=== PATIENT | female | born 1950 | race Caucasian/White ===

== ENCOUNTER 2018-02-11 08:47 | Inpatient (IN) | payer MEDICARE, BC ==
[2018-02-11] MEDS ORDERED: Nitroglycerin TAB 0.4 MG* 0.4 MG TAB SL ONE ×2 (09:12→09:49)
[2018-02-11 09:49] LABS: ABS Basophils 0 10^3/ul (0-0.2); ABS Eosinophils 0.2 10^3/ul (0-0.6); ABS Lymphocytes 1.8 10^3/ul (1.0-4.8); ABS Monocytes 0.4 10^3/ul (0-0.8); ABS Nucleated RBC 0 10^3/ul; Hematocrit 42 % (35-47); Hemoglobin 14.1 g/dl (12.0-16.0); Lymphocyte % 33.2 % (25-47); Mean Corpuscular HGB Conc 34 g/dl (31-36); Mean Corpuscular Hemoglobin 29 pg (27-31); Mean Corpuscular Volume 87 fL (80-97); Mean Platelet Volume 7.7 um3 (7.4-10.4); Nucleated Red Blood Cells % 0; Platelet Count 204 10^3/ul (150-450); Red Blood Count 4.81 10^6/ul (4.0-5.4); Red Cell Distribution Width 14 % (10.5-15); White Blood Count 5.5 10^3/ul (3.5-10.8)
[2018-02-11 10:12] LABS: EGFR Non-African American 74.1 (>60)
--- NOTE | 2018-02-11 10:36 | RAD ---
INDICATION: Shortness of breath. COMPARISON: None TECHNIQUE: PA and lateral views of the chest were obtained. FINDINGS: The heart and mediastinum are normal in size and contour. The lungs are grossly clear. There is no evidence of large pleural effusion. Visualized bones are normal for the patient's age. There is no radiographic evidence of free air beneath the diaphragm IMPRESSION: No radiographic evidence of acute cardiopulmonary disease.
[2018-02-11] MEDS ORDERED: Magnesium Oxide TAB* 400 MG PO ONE (12:09)
[2018-02-11] MEDS ORDERED: Nitroglycerin TAB 0.4 MG* 0.4 MG TAB SL PRN (12:27)
[2018-02-11] MEDS ORDERED: Heparin DRIP 25,000 UNITS(*) 25,000 UNITS/500 ML BAG IV SCH (13:30)
[2018-02-11] MEDS ORDERED: Metoprolol Tartrate IV* 1 MG/ML 5 ML VIAL IV ONE (13:31)
[2018-02-11] MEDS ORDERED: Acetaminophen TAB* 325 MG PO PRN (13:35)
[2018-02-11] MEDS ORDERED: Ondansetron INJ* 2 MG/ML VIAL IV PRN (13:35)
[2018-02-11] MEDS ORDERED: Cetirizine* 10 MG TAB PO PRN (13:36)
[2018-02-11] MEDS ORDERED: HYDROcodone/ACETAMIN 5-325 MG* 1 TAB PO PRN (13:36)
[2018-02-11] MEDS: Atorvastatin* 40 MG TAB PO SCH ×2 (14:40→15:06)
[2018-02-11] MEDS: Heparin VIAL(*) 5000 UNITS/ML VIAL (FIVE THOUSAND) IV SCH (14:51)
--- NOTE | 2018-02-11 16:02 | ECHO ---
Patient: SHADI CHO [facility] Rec#: [id number] : 1950 Date: 02/11/2018 Age: 67y Height: 162.56 cm / 64.0 in Weight: 86.18 kg / 189.9 lbs Sex: F BSA: 1.91 Room#: -9 Admit Date#: 02/11/2018 Type: Inpatient Referring: Riky Magaña Reading: Turner Garcia MD Vp [employer] And Crm: Ramandeep Rosales RDCS CC: Pk Schmid MD Transthoracic Echocardiogram Indication: Chest Pain BP: 178/99 HR: 78 Rhythm: NSR Findings History: Former smoker. Technical Comments: The study quality is fair. The study is technically limited due to poor parasternal windows. Completed at 1430. Left Ventricle: The left ventricular chamber size is normal. There is no left ventricular hypertrophy. There is normal left ventricular systolic function. The estimated ejection fraction is 55-60%. There is paradoxical septal wall motion and relative hypokinesis of the proximal lateral wall. Abnormal left ventricular diastolic function is observed. Abnormal left ventricular diastolic filling is observed, consistent with impaired relaxation. Left Atrium: The left atrium is mildly dilated. Right Ventricle: Moderator Band present. The right ventricular cavity size is normal. The right ventricle wall thickness is mildly increased. The right ventricular global systolic function is normal. Right Atrium: The right atrial cavity size is normal. There is evidence of an atrial septal aneurysm. Aortic Valve: The aortic valve is trileaflet. There is no evidence of aortic valve thickening. There is no evidence of aortic regurgitation. There is no evidence of aortic stenosis. Mitral Valve: The mitral valve leaflets are mildly thickened. There is trace to mild mitral regurgitation. There is no evidence of mitral stenosis. Tricuspid Valve: The tricuspid valve leaflets are normal. There is a physiologic tricuspid regurgitation. Unable to estimate the right ventricular systolic pressure. There is no tricuspid stenosis. Pulmonic Valve: The pulmonic valve appears normal. There is a trace pulmonic regurgitation. There is no pulmonic stenosis. Pericardium: There is no significant pericardial effusion. A pericardial fat pad is visualized. Aorta: There is mild dilatation of the ascending aorta. There is no dilatation of the aortic arch. The aortic root is normal in size. Pulmonary Artery: The main pulmonary artery appears normal. Venous: The inferior vena cava appears normal in size. There is a greater than 50% respiratory change in the inferior vena cava dimension. Summary: There was not any prior study for comparison. Conclusions The left ventricular chamber size is normal. The estimated ejection fraction is 55-60%. The estimated ejection fraction is 55-60%. There is paradoxical septal wall motion and relative hypokinesis of the proximal lateral wall Abnormal left ventricular diastolic function is observed. Abnormal left ventricular diastolic filling is observed, consistent with impaired relaxation. The left atrium is mildly dilated. There is trace to mild mitral regurgitation. There is a physiologic tricuspid regurgitation. There is mild dilatation of the ascending aorta. Measurements Name Value Normal Range RVIDd (AP) 2D 2.5 cm (0.9 - 2.6) RVDdMajor (2D) 3.3 cm (2.2 - 4.4) RVAW (2D) 0.7 cm (0.2 - 0.5) RAd ISD 4CH 4.7 cm (3.4 - 4.9) RA (A4C)W 4 cm (2.9 - 4.6) IVSd (2D) 1 cm (0.6 - 1) LVPWd (2D) 0.9 cm (0.6 - 1) LVIDd (2D) 4.9 cm (3.6 - 5.4) LVIDs (2D) 3 cm - LV FS (2D) 39 % (25 - 45) Aortic Annulus 2.4 cm (1.4 - 2.6) Ao root diameter (2D) 3.3 cm (2.1 - 3.5) Ascending Ao 3.7 cm (2.1 - 3.4) Aortic arch 3 cm (1.8 - 3.4) LA dimension (AP) 2D 3.4 cm (2.3 - 3.8) LAd ISD 4CH 4.9 cm (2.9 - 5.3) LA ISD 4CH W 3.9 cm (2.5 - 4.5) Name Value Normal Range LA ESV SP 4CH (A/L) 41 ml - LA ESV SP 2CH (A/L) 85 ml - LA ESV BP (A/L) 64 ml - LA ESV BP (A/L) index 34 ml/m2 - LA ESV SP 4CH (MOD) 38 ml - LA ESV SP 2CH (MOD) 80 ml - Name Value Normal Range MV E-wave Vmax 0.6 m/sec - MV deceleration time 284.21 msec - MV A-wave Vmax 1.21 m/sec - MV E:A ratio 0.5 ratio - LV septal e' Vmax 0.05 m/sec - LV lateral e' Vmax 0.05 m/sec - LV E:e' septal ratio 12 ratio - LV E:e' lateral ratio 12 ratio - Name Value Normal Range AV Vmax 1 m/sec - AV VTI 20.5 cm - AV peak gradient 4.02 mmHg - AV mean gradient 2.18 mmHg - LVOT Vmax 0.8 m/sec - LVOT VTI 16.2 cm - LVOT peak gradient 2.61 mmHg - LVOT mean gradient 1.43 mmHg - AI Vmax 0.55 m/sec - Name Value Normal Range IVC diameter 1.5 cm - Name Value Normal Range PV Vmax 0.83 m/sec - PV peak gradient 2.77 mmHg -
[2018-02-11] MEDS ORDERED: Metoprolol Tartrate IV* 1 MG/ML 5 ML VIAL IV PRN (16:34)
[2018-02-11] MEDS: Nitroglycerin 2% OINT* 1 GM PAK TOPICAL SCH ×2 (18:31→21:51)
[2018-02-11] MEDS ORDERED: diPHENhydraMINE PO* 25 MG PO ONE (19:53)
[2018-02-11] MEDS ORDERED: Diazepam TAB(*) 5 MG PO ONE (19:53)
[2018-02-11] MEDS: Ascorbic Acid TAB* 500 MG PO SCH (20:42)
[2018-02-11] MEDS: Metoprolol Tartrate TAB* 25 MG PO SCH (20:42)
[2018-02-11] MEDS: Morphine TAB Extended Release (*) 30 MG TAB.ER PO SCH (20:42)
--- NOTE | 2018-02-11 21:25 | HP ---
CC: Dr. Schmid * ADMISSION HISTORY AND PHYSICAL: DATE OF ADMISSION: 02/11/18 PRIMARY CARE PROVIDER: Dr. Schmid. MY ATTENDING WHILE IN THE HOSPITAL: Dr. Garry Carrion.* (DICTATED BY JACQUELIN SORIA) CHIEF COMPLAINT: Chest pressure and left arm pain since this morning. HISTORY OF PRESENT ILLNESS: Ms. Tsai is a 67-year-old female with a past medical history significant only for rheumatoid arthritis, who presents to the emergency department by ambulance after this morning she felt a chest pressure with pain radiating down the back of her left arm, numbness, and tingling in her hand with shortness of breath and diaphoresis. The patient states this started soon after she woke up around 8 this morning and that she immediately called EMS and in the hospital was given aspirin, nitroglycerin, started on oxygen and her pain decreased, but did not go away. The patient arrived at the emergency department, was given more nitroglycerin and her pain resolved completely. The patient has never had any episodes like this before. The patient has no history of hypertension, hyperlipidemia, diabetes. The patient has routine monitoring of her inflammatory markers with her rheumatoid arthritis. The patient has no recent illnesses. No recent changes in medication or recent changes in diet, weight gain, weight loss, swelling in her legs, decrease in exercise tolerance, shortness of breath, dyspnea on exertion, easy bruising, or other changes in her health status. The patient's initial troponin was 0.01 and then increased to 0.16. The patient while in the emergency department had another episode of chest pain. She rated it 10/10, in similar quality to before, which again resolved with nitroglycerin. The patient is chest pain-free when she was examined. Due to NSTEMI, we were asked to evaluate for admission. PAST MEDICAL HISTORY: 1. Rheumatoid arthritis. 2. Hypothyroidism. 3. Chronic pain. PAST SURGICAL HISTORY: None. HOME MEDICATIONS: 1. Vitamin B 1 tab p.o. q.p.m. 2. Vitamin D 2000 units p.o. b.i.d. 3. Calcium carbonate 1000 mg p.o. q.p.m. 4. Ascorbic acid 500 mg p.o. b.i.d. 5. Acyclovir 400 mg p.o. t.i.d. as needed. 6. Loratadine 10 mg p.o. daily. 7. Vicodin 5/325 one to two tabs p.o. q.6 hours as needed. 8. Desipramine 150 mg p.o. daily. 9. Aspirin 81 mg p.o. daily. 10. Morphine 60 mg p.o. q.12 hours. 11. Meloxicam 15 mg p.o. daily. 12. Levothyroxine 12.5 mcg p.o. daily. 13. Leflunomide 20 mg p.o. daily. 14. Simponi 50 mg subcutaneously monthly. 15. Bupropion XL 225 mg p.o. daily. ALLERGIES: The patient has allergies to CEFACLOR, CIPROFLOXACIN, ERYTHROMYCIN, GOLD, PLAQUENIL, METHOTREXATE, OMEPRAZOLE, PENICILLIN, POLYETHYLENE GLYCOL, SULFAMETHOXAZOLE, TETRACYCLINE, TRIMETHOPRIM, and MEAT PRESERVATIVES. FAMILY HISTORY: The patient's mother of CHF secondary to rheumatic fever as a child with significant valvular abnormalities, no known VT. The patient's father of emphysema; he was a long-term smoker. The patient has a sister with breast cancer and diabetes, and 4 other siblings all of whom had type 1 diabetes. SOCIAL HISTORY: The patient was a former smoker, off and on for her adult life , quitting 7 years ago. The patient drinks alcohol rarely. No illicit drugs. 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 The patient is and has only 1 child, who is in good health, whose name is Lou Ford and is her healthcare proxy. REVIEW OF SYSTEMS: A 14-point review of systems was reviewed and is negative except as above. PHYSICAL EXAMINATION GENERAL: The patient is a 67-year-old female, who appears stated age and sitting comfortably in the bed, in no acute distress. VITAL SIGNS: On examination, temperature 97.7, pulse rate 87, respiratory rate 16, oxygen saturation 99% on 2 L, blood pressure 166/104. HEENT: Head: Normocephalic, atraumatic. Sclerae anicteric. No conjunctival injection. Nasal mucosa is moist. Oral mucosa moist. No pharyngeal erythema, discharge, or exudates. NECK: Supple, nontender. No lymphadenopathy. No JVD. No carotid bruits auscultated. RESPIRATORY: Clear to auscultation bilaterally. No wheezes, rales, or rhonchi. Good air exchange bilaterally. CARDIAC: Regular rate and rhythm. No clicks, murmurs, gallops, or rubs. Pulses 2+ in the bilateral dorsalis pedis, posterior tibial, and radial areas. No calf tenderness bilaterally. No S3, S4. PMI nondisplaced. ABDOMEN: Soft, nontender, nondistended. Bowel sounds present and normoactive in all 4 quadrants. No hepatosplenomegaly. No abdominal bruits auscultated. GENITOURINARY: No suprapubic or CVA tenderness. NEURO: Cranial nerves II through XII intact. No focal deficits. Normal gait. Alert and oriented x3. No abnormalities. PSYCHIATRIC: Pleasant and cooperative. SKIN: Clean, dry, and intact. No rash. No subcutaneous nodules. No erythema over any visible joints. DIAGNOSTIC STUDIES/LAB DATA: White blood cell count 5.5, hemoglobin 14.1, hematocrit 42, MCH 29, RDW 14, platelet count 204. D-dimer less than 200. Sodium 139, potassium 4.1, chloride 106, carbon dioxide 27, anion gap 6, BUN 11 , creatinine 0.78, glucose 127, lactic acid 1.6, magnesium 1.8. Bilirubin 0.4, AST 24, ALT 36, alkaline phosphatase 69. Creatine kinase 135, CK-MB 4.8. Troponin I 0.01, repeat 0.16. BNP 24. Protein 6.7. Albumin 3.8, globulin 2.9. TSH 1.45, T4 pending. ESR and CRP pending. Chest x-ray read as no acute cardiopulmonary disease. Initial EKG shows normal sinus rhythm. No ST segment abnormalities. No hypertrophy or enlargement. Normal axis, QTc of 450, rate of 71. Repeat EKG during second episode of chest pain shows no significant changes from previous exam, no new ST-segment abnormalities. Repeat EKG during chest pain-free episode shows again no significant changes. ASSESSMENT AND PLAN: Impression: 1. Ms. Tsai is a 67-year-old female with a past medical history significant only for rheumatoid arthritis, who presents with chest pressure with shortness of breath, diaphoresis, and pain down her left arm consistent with cardiac origin. The patient has an elevated troponin indicating non-ST elevation myocardial infarction. The patient will be admitted to the hospital for medical management, Cardiology consultation, and possible cardiac catheterization. 2. Non-ST elevation myocardial infarction. The patient will be started on heparin drip. The patient received aspirin in the emergency department. The patient is currently chest pain-free. The patient is slightly hypertensive. The patient will receive metoprolol tartrate IV at this time. The patient will be started on Lipitor 40 mg p.o. daily. A lipid panel and a hemoglobin A1c are pending. The patient has no known history of hypertension, hyperlipidemia, or coronary artery disease. The patient has no family history of coronary artery disease, has a strong family history for type 1 diabetes. The patient is a former smoker. The patient's CAMILA risk score is 4. We will wait for Cardiology consultation before starting Plavix due to possibility of needing coronary artery bypass graft. We will repeat troponin in 3 hours and trend to peak. The patient will be monitored on telemetry. The patient has nitroglycerin available for recurrent chest pain. We will attempt to keep the patient's blood pressure under better control using nitrates and beta blockers. 3. Rheumatoid arthritis. We will continue the patient on leflunomide. We will hold the patient's Mobic. We recommend the patient discontinue this permanently. The patient's CRP and ESR are pending to gauge disease activity at this time. 4. Hypothyroidism. Continue levothyroxine. T4 pending. 5. Chronic pain. Continue the patient's long-acting morphine, desipramine, and Vicodin. 6. Hypomagnesemia. The patient received magnesium supplementation while in the emergency department. We will recheck in the morning. The patient's potassium and magnesium should be kept above 2 and 4 for ideal non-ST elevation myocardial infarction management. 7. DVT prophylaxis. The patient will be on heparin drip. The patient is a high risk. 8. FEN. The patient will be n.p.o. except for medications at this time pending possible catheterization. The patient will not receive fluids due to hypertension. 9. Disposition. The patient is admitted inpatient to telemetry. TIME SPENT: Approximately 60 minutes was spent on this admission, 30 of which was spent [id number] with the patient obtaining history and physical and discussing treatment plan. This plan has been discussed with my attending, Dr. Garry Carrion; he is in agreement. JACQUELIN SORIA [id number]/[facility] #: [id number] SYD
--- NOTE | 2018-02-12 00:18 | CONS ---
CC: Dr. Schmid; Hospitalist Service * CARDIOLOGY CONSULTATION REPORT: DATE OF CONSULT: 02/11/18 HISTORY OF PRESENT ILLNESS: I was asked by hospitalist service to see this 67- year-old female patient who presented to the emergency room via ambulance this morning with chest pain. The patient does have risk factors for coronary artery disease including obesity, her age, systemic arterial hypertension in the emergency room, although she had no history of hypertension or medications for blood pressure before, and family history of coronary artery disease, long use of tobacco consumption, although she quit a few years ago, unknown cholesterol status. She said this morning, she had chest pain and heaviness, which was severe. She had no nausea, no vomiting. She felt going down her left arm. No syncope. She called the ambulance. They gave her sublingual nitroglycerin which helped, but it never took the pain away completely. In the emergency room, she had 2 nitroglycerin sublingual. The third one took the pain away. She had been chest pain free since morning. Her first troponin was 0. Her second troponin about 12:20 this afternoon was 0.16. She was chest pain free at that time. Her EKGs did not show ST elevations, although they showed borderline low voltage and the third one showing borderline ST depressions inferolaterally. She did receive Lopressor 5 mg IV in the emergency room because her systolic blood pressure was 180 and she was started on heparin drip after bolus dose. She was started on Lipitor 40 mg once daily. She had no nausea, no vomiting, no fever, no chills, no acute illness. She gives no history of myocardial infarction or coronary artery disease in the past or congestive heart failure. She gives no history of diabetes mellitus. She said she has 5 siblings; all of them have diabetes with coronary artery disease either with the stenting or coronary artery bypass grafting. She is here for further evaluation. She gives no palpitations, no tachycardia, no swelling in the lower extremities, no hematochezia, no orthopnea, no syncope, no nausea, no vomiting is appreciated. PAST SURGICAL HISTORY: Include history of cyst removed from the bone of the lower back and total abdominal hysterectomy with bilateral salpingo- oophorectomy. Her daughter is with her at the bedside when I interviewed the patient today. MEDICATIONS: Her medications as an outpatient include: 1. Mobic 50 mg daily. 2. Synthroid 125 mcg daily. 3. Morphine. 4. Vicodin. 5. Baby aspirin 81 mg daily. 6. Wellbutrin 225 mg daily. 7. Claritin 10 mg daily. 8. Acyclovir 400 mg as needed. Her medications as an inpatient include: 1. Synthroid 125 mcg daily. 2. Morphine 60 mg p.o. q.12 hours. 3. Nitroglycerin 0.4 mg sublingual for chest pain. 4. Zofran 4 mg IV q.6 hours for nausea. 5. She is also on Tylenol 650 mg p.o. q.6 hours p.r.n. 6. She is on hydrocodone 1 tablet p.o. q.6 hours. 7. Vitamin C 500 mg twice a day. 8. Aspirin 81 mg daily. 9. Lipitor 40 mg daily. 10. Zyrtec 10 mg p.r.n. 11. Heparin IV drip adjusted to her PTT. ALLERGIES: She is allergic to multiple medications including PENICILLIN giving her flush rash; TETRACYCLINE, hives; ERYTHROMYCIN, cramping in the abdomen and rash; CECLOR, rash; CIPRO, hives; PLAQUENIL, hives; GOLD SALTS, skin lesions; METHOTREXATE, PRILOSEC, severe diarrhea; SYSTANE DROPS, inflammation in the eyes. SOCIAL HISTORY: She gives no history of significant alcohol drinking. She did smoke for many years, although she quit a few years ago. She lives by herself. She exercises in the form of walking daily activity. REVIEW OF SYSTEMS: Review of all other systems essentially is negative. PHYSICAL EXAM: She is awake, alert, and oriented. She is chest pain free. She is not in acute distress. Vitals: Blood pressure 188/100 at about 2:30 this afternoon; pulse 70, she is in sinus rhythm; she is afebrile. Head and Neck Exam: Normocephalic, atraumatic head. Ears, Nose, and Throat: Essentially benign. Neck: Supple. JVP is not elevated. No carotid bruit. No masses in the neck are appreciated. Chest: Clear to auscultation. No rales, no wheeze, no added sounds appreciated. Heart: Normal. Regular S1 and S2. No added sounds, no gallops, no rubs. Abdomen: Benign. Positive bowel sounds. Extremities: No edema, no cyanosis, no clubbing. Skin exam is normal. Psych: Normal affect and mood. 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 DIAGNOSTIC STUDIES/LAB DATA: Her EKG is as described. Her white blood cells 5.5, hemoglobin 14.1, hematocrit 42, and platelets 204. D - dimer less than 200. Sodium 139, potassium 4.1, chloride 106, total CO2 27, BUN 11, creatinine 0.78, magnesium 1.8. LFTs normal. Troponin 0.01, that was at 9:30 this morning and then 0.16 at 12:20 afternoon. CRP 2.75. BNP 24. TSH 1.45, T4 pending. Chest x-ray: No active cardiopulmonary disease. IMPRESSION: The patient is a 67-year-old female with: 1. Symptoms of chest pain, abnormal troponin, borderline EKG abnormality consistent with acute coronary syndrome. 2. The patient is currently chest pain free after she received aspirin, sublingual nitroglycerin x3, and metoprolol IV one dose in the emergency room. 3. Obesity. 4. Systemic arterial hypertension. 5. Unknown cholesterol status. 6. Strong family history of coronary artery disease. 7. Long use of tobacco consumption, although she quit. 8. Hypothyroidism. 9. Severe rheumatoid arthritis on osteoarthritis. She is on nonsteroidal antiinflammatory and morphine pain medications. PLAN: Currently, the patient is on the telemetry floor. She needs to be observed very closely for her symptoms of chest pain, EKG abnormalities, as well as follow up troponins as you are already doing. I agree with aspirin, IV heparin. I added beta blockers, metoprolol, and also nitro paste 1 inch. This will help her coronary syndrome as well as her systemic arterial hypertension. I agree with continuing the statin. I understand that an echocardiogram was just completed and we will evaluate this especially for LV function and wall motion abnormality. We will follow EKG and troponin very closely. This patient needs, based on her symptoms, troponin abnormality, EKG abnormality, and comorbidities, cardiac catheterization to evaluate her coronary anatomy. Benefits and risks discussed with the patient. She is willing to proceed. Definitely, any change in her clinical status will be observed and we will take the patient earlier rather than later to the cardiac lab tech. I answered all their concerns and questions up to their satisfaction. Her daughter was at the bedside with her today. TIME SPENT: More than half of at least 60 to 65 plus minutes was in the face-to - face education and counseling mode, explaining all of the above, and making further recommendations. Thank you very much for asking us to participate in the care of this patient. [id number]/[facility] #: [id number] SYD
[2018-02-12] MEDS: Heparin VIAL(*) 5000 UNITS/ML VIAL (FIVE THOUSAND) IV SCH (02:28)
[2018-02-12] MEDS: Nitroglycerin 2% OINT* 1 GM PAK TOPICAL SCH (04:41)
[2018-02-12] MEDS ORDERED: Levothyroxine TAB* 125 MCG TAB PO SCH (06:00)
[2018-02-12] MEDS ORDERED: NS 0.9% 1000 ML* 1,000 ML IV SCH ×2 (06:00)
[2018-02-12] MEDS: Morphine TAB Extended Release (*) 30 MG TAB.ER PO SCH (07:24)
[2018-02-12] MEDS: Ascorbic Acid TAB* 500 MG PO SCH (07:25)
[2018-02-12] MEDS: Metoprolol Tartrate TAB* 25 MG PO SCH (07:40)
[2018-02-12 07:41] LABS: Hematocrit 40 % (35-47); Hemoglobin 13.4 g/dl (12.0-16.0); Mean Corpuscular HGB Conc 34 g/dl (31-36); Mean Corpuscular Hemoglobin 30 pg (27-31); Mean Corpuscular Volume 87 fL (80-97); Mean Platelet Volume 7.9 um3 (7.4-10.4); Platelet Count 181 10^3/ul (150-450); Red Blood Count 4.54 10^6/ul (4.0-5.4); Red Cell Distribution Width 15 % (10.5-15); White Blood Count 9.1 10^3/ul (3.5-10.8)
[2018-02-12 08:36] VITALS: BP 166/84
--- NOTE | 2018-02-12 08:44 | PN ---
Subjective Date of Service: 02/12/18 Interval History: Patient was seen and examined at bedside. Reports feeling tired, did not sleep much last night. Denies any recurrent chest pain, palpitations or SOB. Tolerating clear liquid diet, made NPO this morning in anticipation for planned cardiac catheterization later today. She has no complaints today. Family History: Unchanged from Admission Social History: Unchanged from Admission Past Medical History: Unchanged from Admission Objective Active Medications: Acetaminophen (Tylenol Tab*) 650 mg PO Q6H PRN PRN Reason: FEVER/PAIN Last Admin: 02/12/18 02:32 Dose: 650 mg Hydrocodone Bitart/Acetaminophen ([place] 5-325 Tab*) 1 tab PO Q6H PRN PRN Reason: PAIN Ascorbic Acid (Vitamin C Tab*) 500 mg PO BID [facility] Last Admin: 02/12/18 07:25 Dose: 500 mg Aspirin (Aspirin Ec Tab*) 81 mg PO DAILY [facility] Last Admin: 02/12/18 07:25 Dose: 81 mg Atorvastatin Calcium (Lipitor*) 40 mg PO 1700 [facility] Last Admin: 02/11/18 15:06 Dose: Not Given Cetirizine HCl (Zyrtec*) 10 mg PO DAILY PRN PRN Reason: Allergy Symptoms Desipramine HCl (Norpramin Tab*) 150 mg PO DAILY [facility] Last Admin: 02/12/18 07:24 Dose: 150 mg Heparin Sodium (Porcine) (Heparin Vial(*)) 0 units IV .SEE DRIP PROTOCOL [facility] Last Admin: 02/12/18 02:28 Dose: 4,000 units Heparin Sodium/Dextrose (Heparin Drip 25,000 Units(*)) 25,000 units in 500 mls @ 0 mls/hr IV PER RATE [facility]; Per Protocol PRN Reason: Protocol Last Admin: 02/11/18 14:46 Dose: 16 mls/hr Sodium Chloride (Ns 0.9% 1000 Ml*) 1,000 mls @ 100 mls/hr IV .per rate [facility] Last Admin: 02/12/18 06:09 Dose: 100 mls/hr Levothyroxine Sodium (Synthroid Tab*) 125 mcg PO 0600 [facility] Last Admin: 02/12/18 06:05 Dose: 125 mcg Metoprolol Tartrate (Lopressor Tab*) 25 mg PO BID [facility] Last Admin: 02/12/18 07:40 Dose: 25 mg Metoprolol Tartrate (Lopressor Iv*) 5 mg IV Q6H PRN PRN Reason: SYSTOLIC BP GREATER THAN: Morphine Sulfate (Ms Contin(*)) 60 mg PO Q12HR [facility] Last Admin: 02/12/18 07:24 Dose: 60 mg Nitroglycerin (Nitroglycerin Tab 0.4 Mg*) 0.4 mg SL Q5M PRN PRN Reason: ANGINA Nitroglycerin (Nitroglycerin 2% Oint*) 1 inch TOPICAL Q6H [facility] Last Admin: 02/12/18 04:41 Dose: 1 inch Pto: Leflunomide 20 (Mg) 1 dose PO DAILY [facility] PRN Reason: Protocol Last Admin: 02/12/18 07:25 Dose: 1 dose Ondansetron HCl (Zofran Inj*) 4 mg IV Q6H PRN PRN Reason: NAUSEA Vital Signs - 8 hr 02/12/18 02/12/18 02/12/18 04:09 07:24 07:38 Temperature 98.0 F 98.1 F Pulse Rate 68 63 Respiratory 18 18 18 Rate Blood Pressure 133/76 166/84 (mmHg) O2 Sat by Pulse 99 94 Oximetry 02/12/18 08:00 Temperature Pulse Rate Respiratory 18 Rate Blood Pressure (mmHg) O2 Sat by Pulse Oximetry Oxygen Devices in Use Now: None Appearance: Alert and oriented, in NAD. Eyes: No Scleral Icterus, PERRLA Ears/Nose/Mouth/Throat: Mucous Membranes Moist Neck: NL Appearance and Movements; NL JVP, Trachea Midline Respiratory: Symmetrical Chest Expansion and Respiratory Effort, Clear to Auscultation Cardiovascular: NL Sounds; No Murmurs; No JVD, RRR Abdominal: NL Sounds; No Tenderness; No Distention Lymphatic: No Cervical Adenopathy Extremities: No Edema, No Clubbing, Cyanosis Skin: No Rash or Ulcers Neurological: Alert and Oriented x 3 Result Diagrams: 02/12/18 07:33 02/12/18 07:33 Diagnostic Imaging: Cardiac Catheterization Report Patient: SHADI CHO /Age: 09 1950 67 Medical Record#: [id number] Admission Date: 02/11/18 Provider: Ed Vieyra MD CC: Dr. Pk Schmid; Dr. Garcia; Dr. Chaparro Ash CARDIAC CATHETERIZATION REPORT: DATE OF PROCEDURE: INDICATION FOR THE PROCEDURE: The patient presents with non-ST elevation myocardial infarction, acute coronary syndrome by cardiac enzymes and symptomatology. PROCEDURE: Coronary arteriography, left heart catheterization, left ventriculography. The patient was examined and interviewed in the floor of the hospital where the risks and benefits were explained to the patient and her daughter. They understood them and wished to proceed. OVERALL ASSESSMENT: Significant multi-vessel coronary artery disease, most significantly involving a 75% distal left main with heavy calcium extending into the proximal left anterior descending artery as described. There is a 90% lesion in the proximal to mid circumflex artery as mentioned. There is a significant lesion in an extremely small- caliber distal right coronary artery subtending a small area of myocardium. In general, recommendations for bypass surgery would be most appropriate with preserved left ventricular function and significant distal left main as described. This information was shared with Dr. Garcia, the patient's primary ophthalmic photographer, who will be setting up arrangements for transfer of the patient. [id number]/[facility] #: [id number] Ed Vieyra MD Dictated Date/Time: 02/12/18 1126 Transcribed Date/Time 02/12/18 1221 Copy to: CC: Ed Vieyra MD 2 of 2 EKG Data: EKG INTERPRETATION ECG Report Patient Name SHADI CHO Birthdate 07/26/1955 Sex F Order Number [id number] Date of ECG 02/11/2018 09:16:23 Interpretation Sinus rhythm.normal P axis, V-rate 60- 99 Abnormal R-wave progression, early transition.QRS area>0 in V2 Nonspecific T abnormalities, lateral leads.T <-0.10mV, I aVL V5 V6 Baseline wander in lead(s) V3 - ABNORMAL ECG - ECG NEEDS E-SIGNING Please go to [facility] website to view the EKG image Assess/Plan/Problems-Billing Assessment: A 67 y/o female with sudden onset of chest pain, and cardiac work-up consistent with a non-ST elevation NC; who was found on cardiac catheterization to have a significant coronary disease, promoting her transfer to [facility] for surgical intervention. - Patient Problems (1) Non-STEMI (non-ST elevated myocardial infarction) Current Visit: Yes Status: Acute Comment: - Heparin drip was intiated since admission, continued during her transfer orders - Discussed with DR. Garcia and Dr. Vieyra; EMTALA orders were filled, transfer orders completed. - Patient stable and daughter was present, both agreed to care plans - Morphine and Nitro SL were added as prn orders in route (2) Chest pain Current Visit: Yes Status: Acute Comment: - Significant Multiple Coronary artery disease, mostly noted in distale left coronary - She is pain free upon discharge to [facility] (3) Arthritis, rheumatoid Current Visit: No Comment: Stable (4) DVT prophylaxis Current Visit: Yes Comment: On heparin drip (5) Full code status Current Visit: Yes Status: Acute Code(s): Z78.9 - OTHER SPECIFIED HEALTH STATUS SNOMED Code(s): 823966258 Status and Disposition: Transfer to [facility], to care of Dr. Bentley Ash MD. Likely to proceed with multi-vessel CABG. Patient aware and agreed to plans. Total time spent discharging patient was approx. 40 min.
[2018-02-12] MEDS ORDERED: Aspirin EC TAB* 81 MG TAB.EC PO SCH (09:00)
[2018-02-12] MEDS ORDERED: Desipramine TAB* 50 MG PO SCH (09:00)
[2018-02-12] MEDS ORDERED: LEFLUNOMIDE 20 MG PO SCH (09:00)
[2018-02-12] MEDS ORDERED: Heparin 2 UNITS/ML IVPREMIX* 3,000 ML IV ONE (09:38)
[2018-02-12] MEDS ORDERED: Lidocaine 1% INJ* 10 MG/ML 30 ML SDV ONE (09:38)
[2018-02-12] MEDS ORDERED: Iohexol 350 (CONTRAST) 200 ML MDV IV ONE ×2 (09:39)
[2018-02-12] MEDS ORDERED: Midazolam* 1 MG/ML 10 ML VIAL (10 MG) ONE (09:55)
[2018-02-12] MEDS ORDERED: fentaNYL* 50 MCG/ML 2 ML VIAL (100 MCG VIAL) ONE (09:59)
[2018-02-12] MEDS ORDERED: nitroGLYCERIN DRIP* 25,000 MCG/250 ML BTL ONE (10:18)
--- NOTE | 2018-02-12 11:59 | ED ---
Justyn Garnett Angela, scribed for Sander Love MD on 02/11/18 at 0910 . HPI Chest Pain - HPI Summary HPI Summary: This pt is a 62 y/o female presenting to [facility] c/o chest pain since 08:00 this morning. Pt reports she woke up at 07:30 showered and got dressed. She then began feeling chest heaviness, described as "someone sitting on her chest." Pt additionally states diaphoresis, intermittent dizziness. Her chest pain at onset was 10/10 in severity. Currently her pain is 5/10 after aspirin and nitroglycerin. Denies fever, nausea, vomiting, SOB. Pt takes morphine for chronic arthritis. Pt states she has never had this chest pain before in the past. 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 - History of Current Complaint Hx Obtained From: Patient Onset/Duration: Started Hours Ago, Still Present Timing: Lasting Hours Initial Severity: Severe Current Severity: Moderate Pain Intensity: 5 Pain Scale Used: 0-10 Numeric Chest Pain Location: Diffuse Chest Pain Radiates: No Character: Heaviness Aggravating Factor(s): Nothing Alleviating Factor(s): Nothing Associated Signs and Symptoms: Positive: Chest Pain, Dizziness, Diaphoresis. Negative: Shortness of Breath, Fever, Nausea, Vomiting - Allergy/Home Medications Allergies/Adverse Reactions: Allergies Allergy/AdvReac Type Severity Reaction Status Date / Time cefaclor [From Ceclor] Allergy Palpitation Verified 02/11/18 09:13 s ciprofloxacin [From Cipro] Allergy Hives Verified 02/11/18 09:13 erythromycin base Allergy Rash Verified 02/11/18 09:13 Gold Salts Allergy Rash Verified 02/11/18 09:13 hydroxychloroquine Allergy Hives Verified 02/11/18 09:13 [From Plaquenil] methotrexate Allergy Unknown Verified 02/11/18 09:13 Reaction Details omeprazole [From Prilosec] Allergy Diarrhea Verified 02/11/18 09:13 Penicillins Allergy Rash Verified 02/11/18 09:13 polyethylene glycol 400 Allergy Eyes Verified 02/11/18 09:13 [From Systane (propylene Itchy/Swollen/Red/Watery glycol)] propylene glycol Allergy Eyes Verified 02/11/18 09:13 [From Systane (propylene Itchy/Swollen/Red/Watery glycol)] sulfamethoxazole Allergy Vomiting Verified 02/11/18 09:13 [From ] tetracycline Allergy Hives Verified 02/11/18 09:13 trimethoprim [From ] Allergy Vomiting Verified 02/11/18 09:13 Home Medications: Home Medications Acyclovir* [Zovirax 400 MG TAB*] 400 mg PO TID PRN 02/11/18 [History Confirmed 02/11/18] Ascorbic Acid TAB* [Vitamin C TAB*] 500 mg PO BID 02/11/18 [History Confirmed 02/11/18] Aspirin EC TAB* [Ecotrin EC Low Dose 81 MG*] 81 mg PO DAILY 02/11/18 [History Confirmed 02/11/18] Bupropion XL* [Wellbutrin XL *] 225 mg PO DAILY 02/11/18 [History Confirmed 09/20] Calcium Carbonate [Calcium] 1,000 mg PO QPM 02/11/18 [History Confirmed 02/11/18 ] Cholecalciferol TAB* [Vitamin D TAB*] 2,000 units PO BID 02/11/18 [History Confirmed 02/11/18] Desipramine TAB* [Norpramin TAB*] 150 mg PO DAILY 02/11/18 [History Confirmed ] Golimumab [Simponi] 50 mg SUBCUT MONTHLY 02/11/18 [History Confirmed 02/11/18] Hydrocodone/APAP 5/300 (NF) [Vicodin 5 MG/300 MG(NF)] 1 - 2 tab PO Q6H PRN 02/11 [History Confirmed 02/11/18] Leflunomide (NF) [Arava (NF)] 20 mg PO DAILY 02/11/18 [History Confirmed ] Levothyroxine TAB* [Synthroid TAB*] 125 mcg PO DAILY 02/11/18 [History Confirmed 02/11/18] LoraTADine TAB(NF) [Claritin 10 MG TAB(NF)] 10 mg PO DAILY PRN 02/11/18 [ History Confirmed 02/11/18] Meloxicam(NF) [Mobic(NF)] 15 mg PO DAILY 02/11/18 [History Confirmed 02/11/18] Morphine TAB Extended Rel(*) [Ms Contin(*)] 60 mg PO Q12HR 02/11/18 [History Confirmed 02/11/18] Vitamin B Complex TAB* [B Complex-50*] 1 tab PO QPM 02/11/18 [History Confirmed 02/11/18] PMH/Surg Hx/FS Hx/Imm Hx Endocrine/Hematology History: Reports: Hx Thyroid Disease - hypothyroidism Denies: Hx Diabetes Cardiovascular History: Denies: Hx Hypertension Musculoskeletal History: Reports: Hx Arthritis Psychiatric History: Reports: Hx Depression - Family History Known Family History: Positive: Diabetes - siblings - Social History Alcohol Use: None Substance Use Type: Reports: None Smoking Status (MU): Never Smoked Tobacco Review of Systems Positive: Skin Diaphoresis. Negative: Fever, Chills Positive: Chest Pain Negative: Vomiting, Nausea Neurological: Other - POS: lightheadedness All Other Systems Reviewed And Are Negative: Yes Physical Exam - Summary Physical Exam Summary: VITAL SIGNS: Reviewed. GENERAL: Patient is a well-developed and nourished female who is lying comfortable in the stretcher. Patient is not in any acute respiratory distress. HEAD AND FACE: No signs of trauma. No ecchymosis, hematomas or skull depressions. No sinus tenderness. EYES: PERRLA, EOMI x 2, No injected conjunctiva, no nystagmus. EARS: Hearing grossly intact. Ear canals and tympanic membranes are within normal limits. MOUTH: Oropharynx within normal limits. NECK: Supple, trachea is midline, no adenopathy, no JVD, no carotid bruit, no c- spine tenderness, neck with full ROM. CHEST: Symmetric, no tenderness at palpation LUNGS: Clear to auscultation bilaterally. No wheezing or crackles. CVS: Regular rate and rhythm, S1 and S2 present, no murmurs or gallops appreciated. ABDOMEN: Soft, non-tender. No signs of distention. No rebound no guarding, and no masses palpated. Bowel sounds are normal. EXTREMITIES: FROM in all major joints, no edema, no cyanosis or clubbing. NEURO: Alert and oriented x 3. No acute neurological deficits. Speech is normal and follows commands. SKIN: Dry and warm Triage Information Reviewed: Yes Vital Signs Reviewed: Yes Diagnostics - Laboratory Result Diagrams: 02/11/18 09:32 02/11/18 09:32 Lab Statement: Any lab studies that have been ordered have been reviewed, and results considered in the medical decision making process. - Radiology Chest XR Xray Interpretation: No Acute Changes - IMPRESSION: No radiographic evidence of acute cardiopulmonary disease. Dr. Love has reviewed this radiology report. Radiology Interpretation Completed By: Radiologist - EKG 09:16 Cardiac Rate: NL EKG Rhythm: Sinus Rhythm - at 71 bpm EKG Interpretation: No ST elevations. 09:58 Cardiac Rate: NL EKG Rhythm: Sinus Rhythm - at 96 bpm EKG Interpretation: No ST elevations. No ST depressions. Re-Evaluation - Re-Evaluation First Eval Re-Evaluation Time: 12:06 Comment: I reviewed the lab and XR results with the pt. I discussed the admission plan with the pt. Chest Pain Course/Dx - Course Assessment/Plan: This pt is a 62 y/o female presenting to [facility] c/o chest pain since 08:00 this morning. Pt reports she woke up at 07:30 showered and got dressed. She then began feeling chest heaviness, described as "someone sitting on her chest." Pt additionally states diaphoresis, intermittent dizziness. Her chest pain at onset was 10/10 in severity. Currently her pain is 5/10 after aspirin and nitroglycerin. Denies fever, nausea, vomiting, SOB. Pt takes morphine for chronic arthritis. Pt states she has never had this chest pain before in the past. 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 Test results without any significant abnormalities except for magnesium of 1.8, for which the pt was given magnesium oxide PO, first troponin is negative. Second troponin is 0.16. Chest XR: No radiographic evidence of acute cardiopulmonary disease. EKG shows no ST elevations, however the pt had 3 episodes of chest pain which was alleviated by nitroglycerin. Therefore I discussed the test results and findings with Dr. Carrion, hospitalist, who accepted the pt for admission to rule out acute coronary syndrome. Pt is hemodynamically stable, alert and oriented x3. Dx: chest pain, rule out ACS. - Diagnoses Provider Diagnoses: Chest pain - Provider Notifications Discussed Care Of Patient With: Garry Carrion Time Discussed With Above Provider: 12:07 Instructed by Provider To: Other - I discussed pt care with Dr. Carrion, hospitalist, who has accepted the pt for admission. Discharge - Sign-Out/Discharge Documenting (check all that apply): Discharge - admit to [facility] - Discharge Plan Condition: Stable Disposition: ADMITTED TO [facility] Referrals: No Primary Care Phys,NOPCP [Medical Doctor] - The documentation as recorded by the scribe, Alejandra,Michelle accurately reflects the service I personally performed and the decisions made by me, Sander Love MD.
--- NOTE | 2018-02-12 12:55 | CATH ---
CC: Dr. Pk Schmid; Dr. Garcia; Dr. Chaparro Ash * CARDIAC CATHETERIZATION REPORT: DATE OF PROCEDURE: 02/12/18 INDICATION FOR THE PROCEDURE: The patient presents with non-ST elevation myocardial infarction, acute coronary syndrome by cardiac enzymes and symptomatology. PROCEDURE: Coronary arteriography, left heart catheterization, left ventriculography. The patient was examined and interviewed in the floor of the hospital where the risks and benefits were explained to the patient and her daughter. They understood them and wished to proceed. DESCRIPTION OF PROCEDURE: The patient was brought into the cardiovascular laboratory where a formal time-out was performed. Of note, on the floor, the right radial artery had already been assessed and found to be too small in caliber and as such, the right femoral artery approach was pursued. The right femoral artery area was prepped and draped in the sterile fashion, anesthetized with 1% lidocaine. Right femoral artery was cannulated with an anterior wall only stick and a 5-Kazakh introducer was placed. Coronary arteriography was performed using a 5-Kazakh 4-Cayetano left coronary catheter and a 5-Kazakh 4- Cayetano right coronary catheter. Left heart catheterization and left ventriculography was performed utilizing a 5- Kazakh pigtail catheter. The patient received a total of 24 cc of Omnipaque dye at a rate of 12 cc per second for the left ventriculography. Following this, the catheter was removed , an injection was made into the femoral sheath to assess the eligibility for closure device usage and as such it was found to be acceptable. A 5-Kazakh Mynx closure device was deployed with good hemostasis. The total contrast used was 100 cc of Omnipaque dye. The radiation exposure included 5.6 minutes of fluoro time. The air kerma radiation was 776 milligray. The DAP radiation was 4321 microgray per sq. m. MEDICATIONS: Given during the procedure included: Versed 1 mg and a titrated nitro drip to help control blood pressure, titrated up to 16 mcg per minute. The heparin drip that the patient was placed on was continued in light of the significant disease noted below. RESULTS: LEFT HEART CATHETERIZATION: - Central aortic pressure recorded at 164/74 with a mean of 109, left ventricular pressure 160 over left ventricular end diastolic pressure of 23 to 24 mmHg. LEFT VENTRICULOGRAPHY: - Performed in the BRUNO projection revealed LVEF at lower limits of normal at approximately 50%. There was very mild mid inferior low posterolateral wall hypokinesis seen. CORONARY ARTERIOGRAPHY: A. Left coronary artery: 1. Left main - there is distal tapering of the left main with significant calcification with narrowing of 75% in the distal left main. 2. Left anterior descending artery - the proximal portion of the left anterior descending artery had heavy calcification seen with luminal reduction noted to be approximately 65% to 70% in its worse view. Past this point in the proximal LAD was another area of 45% to 50% narrowing. The mid portion of the LAD had a 40% narrowing noted. The mid diagonal branch had an area of 30% narrowing in its proximal to mid portion. Of note, calcification was seen throughout the proximal mid left anterior descending artery. 3. Circumflex artery - a nondominant vessel. The ostial area was not well evaluated and in limited views, there may be the presence of a significant slit- like obstruction seen best in the AUSTRIAN caudal view. There is a high first very small-caliber obtuse marginal branch followed by a critical 90% blockage in the proximal to mid circumflex before the take off of a mid obtuse marginal branch. That mid obtuse marginal branch itself had a ostial 65% to 70% blockage. Immediately past this point was another small-caliber posterior left ventricular branch followed by the continuation of the circumflex ending in the last small- caliber posterior left ventricular branch. B. Right coronary artery - a dominant vessel supplying the PDA followed by a small- caliber first posterior left ventricular branch eventually with a thread-like second posterior left ventricular branch and a more moderate size third obtuse marginal branch followed by a small-caliber last fourth posterior left ventricular branch. The ostium of the right coronary artery was calcified with an area of 40% narrowing. The proximal portion had a hazy area seen best in the AUSTRIAN projection, which appeared to have a narrowing as much as 65%. Past this point, the distal most portion of the third posterior left ventricular branch had a bifurcating area extremely small in caliber with an 85% to 90% obstruction seen. This is not an area of intervention. The more proximal area of this last vessel had a narrowing of 40% to 45%. The mid portion the posterior descending artery which appeared to be a somewhat small-caliber vessel had a narrowing of 40% to 45% as well. OVERALL ASSESSMENT: Significant multi-vessel coronary artery disease, most significantly involving a 75% distal left main with heavy calcium extending into the proximal left anterior descending artery as described. There is a 90% lesion in the proximal to mid circumflex artery as mentioned. There is a significant lesion in an extremely small-caliber distal right coronary artery subtending a small area of myocardium. In general, recommendations for bypass surgery would be most appropriate with preserved left ventricular function and significant distal left main as described. This information was shared with Dr. Garcia, the patient's primary photography intern, who will be setting up arrangements for transfer of the patient. [id number]/[facility] #: [id number] MTDFelicia
--- NOTE | 2018-02-12 13:20 | TRS ---
DATE OF ADMISSION: 02/11/2018. DATE OF TRANSFER: 02/12/2018. ATTENDING PHYSICIAN: Dr. Homer Delgadillo * (dictated by JACQUELIN Chang). ADMITTING PHYSICIAN: Dr. Garry Carrion. ADMISSION DIAGNOSES: 1. Chest pain. 2. History of rheumatoid arthritis. 3. History of hypothyroidism. 4. History of chronic back pain. DISCHARGE DIAGNOSES: 1. Chest pain. 2. History of rheumatoid arthritis. 3. History of hypothyroidism. 4. History of chronic back pain. 5. Acute coronary syndrome. PROCEDURE: Cardiac catheterization on 02/12/2018. BRIEF MEDICAL HISTORY: Ms. Tsai is a 67-year-old female with a past medical history significant for rheumatoid arthritis who presented to the emergency room last night with complaints of chest pain. She reports that her chest pressure was radiating to her back and left arm with associated numbness and tingling in the hand and shortness of breath, as well as diaphoresis. She has never had any episodes like that before. She had a cardiac work-up in the ER that revealed an elevated troponin with an EKG consistent with a non-STEMI. The patient was admitted to the telemetry floor for observation. HOSPITAL COURSE: The patient was admitted under the Hospitalist service for observation overnight in the telemetry unit. She was observed closely and monitored, and cardiac consultation was obtained by Dr. Garcia. The patient had a transthoracic echocardiogram that revealed an estimated ejection fraction of 55 to 60 percent, as well as abnormal left ventricular diastolic function and abnormal wall movement. Given her increasing troponin and the finding of her echocardiogram, a decision was made to have a cardiac catheterization done this morning. The patient was kept NPO after midnight and she went to the cardiac catheterization unit where she was diagnosed with acute coronary syndrome. The patient was seen again by Dr. Garcia and Dr. Vieyra and discussed with her transferring to [facility] for possible cardiac bypass graft. All the rationale, indication, risks, and benefits of the transfer as well as surgery were discussed with her and the patient consent to go forth. The EMTALA order was filled and the patient appears to be stable for discharge and will continue her Heparin drip, normal saline IV, and Morphine as needed for chest pain, in addition to Nitroglycerin sublingual. The receiving facility is [facility] under the care of Dr. Chaparro Ash. PROBLEM LIST: Acute coronary syndrome: The patient was stabilized after her cardiac catheterization and will be transferred to [facility] to Dr. Chaparro Ash's care for the possibility of cardiac bypass graft. JACQUELIN CHANG [id number]/[facility] #: [id number] MTDD
== END 2018-02-12 15:52 | disposition short-term general hospital (02) | DRG 282 ==
LOC: EDBD → ED 08:47 → MEDTELE 13:41 → MERGE 13:41
PROVIDERS: ADMIT Internal Medicine; ATTEND Internal Medicine
PROC: B211YZZ Fluoroscopy of Multiple Coronary Arteries using Other Contrast (ICD-10-PCS; 2018-02-12)
PROC: B215YZZ Fluoroscopy of Left Heart using Other Contrast (ICD-10-PCS; 2018-02-12)
PROC: 4A023N7 Measurement of Cardiac Sampling and Pressure, Left Heart, Percutaneous Approach (ICD-10-PCS; principal; 2018-02-12 09:00)
DX: I24.9 Acute ischemic heart disease, unspecified (principal); I21.4 Non-ST elevation (NSTEMI) myocardial infarction; R07.9 Chest pain, unspecified; M06.9 Rheumatoid arthritis, unspecified; E03.9 Hypothyroidism, unspecified; E83.42 Hypomagnesemia; I25.84 Coronary atherosclerosis due to calcified coronary lesion; I11.9 Hypertensive heart disease without heart failure; I25.10 Atherosclerotic heart disease of native coronary artery without angina pectoris; M54.9 Dorsalgia, unspecified; E66.9 Obesity, unspecified; M19.90 Unspecified osteoarthritis, unspecified site; Z79.82 Long term (current) use of aspirin; Z79.891 Long term (current) use of opiate analgesic; Z79.899 Other long term (current) drug therapy; Z88.0 Allergy status to penicillin; Z88.2 Allergy status to sulfonamides; Z88.8 Allergy status to other drugs, medicaments and biological substances; Z91.048 Other nonmedicinal substance allergy status; Z87.891 Personal history of nicotine dependence; Z83.3 Family history of diabetes mellitus; Z68.32 Body mass index [BMI] 32.0-32.9, adult; Z82.49 Family history of ischemic heart disease and other diseases of the circulatory system
CPT/HCPCS: 36415; 71046; 80048; 80053; 80061; 82550; 82553; 83036; 83605; 83735; 83880; 84436; 84443; 84484; 84520; 85025; 85027; 85379; 85652; 85730; 86140; 93005; 93306; 93458; 99284; A9270-GY; C1887; J1644; J2250; J3010; J3490

== ENCOUNTER 2018-05-23 03:18 | Inpatient (IN) | payer MEDICARE, BC ==
[2018-05-23] MEDS ORDERED: nitroGLYCERIN DRIP* 25,000 MCG in PREMIX* 0 ML IV ONE (03:29)
[2018-05-23] MEDS ORDERED: NS 0.9% 1000 ML* 1,000 ML IV ONE (03:29)
[2018-05-23] MEDS ORDERED: Ticagrelor* 90 MG TAB PO ONE ×3 (03:29→09:31)
[2018-05-23] MEDS ORDERED: Heparin for STEMI(*) 5,000 UNITS/ML 1 ML VIAL IV ONE ×2 (03:29→03:37)
--- NOTE | 2018-05-23 03:30 | ED ---
HPI Chest Pain - HPI Summary HPI Summary: This is faye Benavides documenting for attending Logan Almeida MD. This patient is a 67 year old F BIBA to [facility] with a chief complaint of chest pain since 01:45. The patient noticed the chest pain when she got up to use the bathroom this morning. The patient rates the pain 8/10 in severity. Symptoms aggravated by nothing. Symptoms alleviated by nothing. Patient reports weakness , diaphoresis, and lightheadedness. Patient denies shortness of breath. Patient had a triple bypass performed in [place] in February 2018 following an PR. The patient was seen at [facility] when she had her PR on 02/12/18. The patient notes that she started a new antibiotic 1 day ago. - History of Current Complaint Time Seen by Provider: 05/23/18 03:22 Hx Obtained From: Patient Onset/Duration: Started Hours Ago, Atraumatic, Still Present Timing: Constant Initial Severity: Moderate Current Severity: Moderate Pain Intensity: 8 Pain Scale Used: 0-10 Numeric Chest Pain Location: Diffuse Chest Pain Radiates: No Aggravating Factor(s): Nothing Alleviating Factor(s): Nothing Associated Signs and Symptoms: Positive: Chest Pain, Weakness, Lightheadedness, Diaphoresis. Negative: Shortness of Breath - Allergy/Home Medications Allergies/Adverse Reactions: Allergies Allergy/AdvReac Type Severity Reaction Status Date / Time cefaclor [From Ceclor] Allergy Palpitation Verified 05/23/18 03:29 s ciprofloxacin [From Cipro] Allergy Hives Verified 05/23/18 03:29 erythromycin base Allergy Rash Verified 05/23/18 03:29 Gold Salts Allergy Rash Verified 05/23/18 03:29 hydroxychloroquine Allergy Hives Verified 05/23/18 03:29 [From Plaquenil] linezolid Allergy See Comment Verified 05/23/18 04:45 methotrexate Allergy Unknown Verified 05/23/18 03:29 Reaction Details omeprazole [From Prilosec] Allergy Diarrhea Verified 05/23/18 03:29 Penicillins Allergy Rash Verified 05/23/18 03:29 polyethylene glycol 400 Allergy Eyes Verified 05/23/18 03:29 [From Systane (propylene Itchy/Swollen/Red/Watery glycol)] propylene glycol Allergy Eyes Verified 05/23/18 03:29 [From Systane (propylene Itchy/Swollen/Red/Watery glycol)] sulfamethoxazole Allergy Vomiting Verified 05/23/18 03:29 [From ] tetracycline Allergy Hives Verified 05/23/18 03:29 trimethoprim [From ] Allergy Vomiting Verified 05/23/18 03:29 canned or frozen meat Allergy See Comment Uncoded 05/23/18 03:29 PMH/Surg Hx/FS Hx/Imm Hx Endocrine/Hematology History: Reports: Hx Thyroid Disease - hypothyroidism Denies: Hx Diabetes Cardiovascular History: Reports: Hx Myocardial Infarction Denies: Hx Hypertension GI History: Reports: Hx Gastroesophageal Reflux Disease - Hx OF, NOT CURRENTLY NEEDING MEDS, Hx Ulcer - gerd/ulcer Musculoskeletal History: Reports: Hx Arthritis Sensory History: Reports: Hx Cataracts - BILATERAL CATARACATS, Hx Contacts or Glasses Denies: Hx Hearing Aid Opthamlomology History: Reports: Hx Cataracts - BILATERAL CATARACATS, Hx Contacts or Glasses Psychiatric History: Reports: Hx Depression - Cancer History Hx Chemotherapy: No Hx Radiation Therapy: No - Surgical History Surgery Procedure, Year, and Place: triple bypass - February 2018. hysterectomy. tailbone cyst removed. Cataracts Hx Anesthesia Reactions: No Infectious Disease History: Reports: Hx Shingles Denies: Hx Clostridium Difficile, Hx Hepatitis, Hx Human Immunodeficiency Virus (HIV), Hx of Known/Suspected MRSA, Hx Tuberculosis - Family History Known Family History: Positive: Diabetes - siblings, Respiratory Disease - Social History Alcohol Use: None Alcohol Amount: FEW/YEAR Substance Use Type: Reports: None Smoking Status (MU): Never Smoked Tobacco Type: Cigarettes Amount Used/How Often: 1/2 TO 1PPD STOPPED FPR PERIOD OF TIME THEN STARTED BACK AND QUIT 2009 Length of Time of Smoking/Using Tobacco: STATES PROBANLY 25 YRS Have You Smoked in the Last Year: No Review of Systems Positive: Skin Diaphoresis Positive: Chest Pain Negative: Shortness Of Breath Neurological: Other - lightheadedness Positive: Weakness All Other Systems Reviewed And Are Negative: Yes Physical Exam - Summary Physical Exam Summary: Appearance: Well-appearing, Well-nourished, lying in bed comfortably Skin: Warm, dry, no obvious rash Eyes: sclera anicteric, no conjunctival pallor ENT: mucous membranes moist, pharynx appears normal Neck: Supple, nontender Respiratory: Clear to auscultation, no signs of respiratory distress Cardiovascular: Normal S1, S2. No murmurs. Normal distal pulses in tibial and radial bilaterally. Abdomen: Soft, nontender, normal active bowel sounds present Musculoskeletal: Normal, Strength/ROM Intact Neurological: A&Ox3, awake and alert, mentation is normal, speech is fluent and appropriate Psychiatric: affect is normal, does not appear anxious or depressed Triage Information Reviewed: Yes Vital Signs Reviewed: Yes Diagnostics - Laboratory Result Diagrams: 05/24/18 10:02 05/25/18 07:07 Lab Statement: Any lab studies that have been ordered have been reviewed, and results considered in the medical decision making process. - Radiology CXR Xray Interpretation: No Acute Changes - Impression: no acute disease Radiology Interpretation Completed By: ED Physician - Dr. Almeida, pending official report - EKG 03:23 Cardiac Rate: NL - at 83 BPM EKG Rhythm: Sinus Rhythm ST Segment: Non-Specific - 1mm St elevation in lead III, slight ST depression in aVL EKG Interpretation: NSR, 1mm St elevation in lead III, slight ST depression in aVL 4:29 Cardiac Rate: NL - at 89 bpm EKG Rhythm: Sinus Rhythm EKG Interpretation: NSR at 89 bpm, resolution of ST elevation in lead III EKG Comparison: Other - resolution of ST elevation in lead III when compared to EKG from 03:28 on 05/23/18 05:03 Cardiac Rate: NL - at 91 bpm EKG Rhythm: Sinus Rhythm ST Segment: Normal Ectopy: None EKG Interpretation: NSR at 91 bpm EKG Comparison: No Significant Change - to EKG at 04:29 on 05/23/18 Chest Pain Course/Dx - Diagnoses Provider Diagnoses: Unstable angina - Provider Notifications Discussed Care Of Patient With: Ed Vieyra Time Discussed With Above Provider: 03:31 Instructed by Provider To: Other - Dr. Vieyra, interventionalist, reviewed the patient's EKG and does not think the patient is having a STEMI. He recommended giving the patient some medications and repeating the EKG in 30 minutes[address] Discuss[address] care with [address]. Zelaya, hospitalist, who agreed to admit patient to [facility] [place]. - Critical Care Time Critical Care Time: 30-74 min - 30 minutes Discharge - Sign-Out/Discharge Documenting (check all that apply): Patient Departure - Discharge Plan Condition: Improved Disposition: ADMITTED TO [facility] - Billing Disposition and Condition Condition: IMPROVED Disposition: Admitted to Health System
[2018-05-23 03:36] LABS: Hematocrit 44 % (35-47); Hemoglobin 14.5 g/dl (12.0-16.0); Mean Corpuscular HGB Conc 33 g/dl (31-36); Mean Corpuscular Hemoglobin 27 pg (27-31); Mean Corpuscular Volume 82 fL (80-97); Mean Platelet Volume 7.6 um3 (7.4-10.4); Platelet Count 215 10^3/ul (150-450); Red Blood Count 5.37 10^6/ul (4.00-5.40); Red Cell Distribution Width 16 % (10.5-15); White Blood Count 7.6 10^3/ul (3.5-10.8)
[2018-05-23] MEDS ORDERED: Morphine INJ** 4 MG/ML 1 ML CARPUJECT IV ONE (03:37)
[2018-05-23] MEDS ORDERED: nitroGLYCERIN DRIP* 25,000 MCG/250 ML BTL ONE ×2 (03:42→12:13)
[2018-05-23 03:44] LABS: INR 0.99 (0.77-1.02)
[2018-05-23 03:54] LABS: ABS Basophils 0.1 10^3/ul (0-0.2); ABS Eosinophils 0.2 10^3/ul (0-0.6); ABS Lymphocytes 2.7 10^3/ul (1.0-4.8); ABS Monocytes 0.8 10^3/ul (0-0.8); ABS Neutrophils 3.8 10^3/ul (1.5-7.7); ABS Nucleated RBC 0 10^3/ul; Eosinophil % 3.1 % (0-6); Lymphocyte % 35.6 % (25-47); Nucleated Red Blood Cells % 0.1
[2018-05-23] MEDS ORDERED: Heparin DRIP 25,000 UNITS(*) 25,000 UNITS/500 ML BAG ONE (03:54)
[2018-05-23 03:56] LABS: EGFR Non-African American 60.5 (>60)
[2018-05-23] MEDS ORDERED: Heparin DRIP 25,000 UNITS(*) 25,000 UNITS/500 ML BAG IV SCH (04:00)
[2018-05-23] MEDS ORDERED: HYDROcodone/ACETAMIN 5-325 MG* 1 TAB PO PRN (04:53)
[2018-05-23] MEDS ORDERED: Heparin VIAL(*) 5000 UNITS/ML VIAL (FIVE THOUSAND) IV PRN (05:48)
[2018-05-23] MEDS ORDERED: Aspirin EC TAB* 81 MG TAB.EC PO SCH (07:30)
[2018-05-23] MEDS: Morphine TAB Extended Release (*) 30 MG TAB.ER PO SCH ×2 (07:44→20:03)
[2018-05-23] MEDS: Levothyroxine TAB* 125 MCG TAB PO SCH (07:44)
[2018-05-23] MEDS: Desipramine TAB* 50 MG PO SCH (07:44)
[2018-05-23] MEDS: Cholecalciferol TAB* 1000 UNITS PO SCH ×2 (08:01→20:03)
[2018-05-23 08:07] LABS: ABS Basophils 0.1 10^3/ul (0-0.2); ABS Eosinophils 0.2 10^3/ul (0-0.6); ABS Lymphocytes 2.1 10^3/ul (1.0-4.8); ABS Monocytes 0.5 10^3/ul (0-0.8); ABS Neutrophils 4.7 10^3/ul (1.5-7.7); ABS Nucleated RBC 0 10^3/ul; Eosinophil % 2.1 % (0-6); Hematocrit 39 % (35-47); Hemoglobin 13.1 g/dl (12.0-16.0); Lymphocyte % 28.2 % (25-47); Mean Corpuscular HGB Conc 34 g/dl (31-36); Mean Corpuscular Hemoglobin 27 pg (27-31); Mean Corpuscular Volume 82 fL (80-97); Mean Platelet Volume 7.9 um3 (7.4-10.4); Nucleated Red Blood Cells % 0.1; Platelet Count 210 10^3/ul (150-450); Red Blood Count 4.79 10^6/ul (4.00-5.40); Red Cell Distribution Width 16 % (10.5-15); White Blood Count 7.6 10^3/ul (3.5-10.8)
[2018-05-23] MEDS ORDERED: Iohexol 350* (CONTRAST) 500 ML MDV IV ONE (08:18)
[2018-05-23 08:34] LABS: Urine Appearance Clear; Urine Blood Negative (Negative); Urine Color Yellow; Urine Ketones 1+ (Negative); Urine Protein Negative (Negative); Urine Red Blood Cell Trace(0-2/hpf) (Absent); Urine Specific Gravity 1.014 (1.010-1.030); Urine Urobilinogen Negative (Negative); Urine White Blood Cell 1+(6-10/hpf) (Absent)
--- NOTE | 2018-05-23 08:41 | HP ---
CC: Dr. Schmid; Dr. Soriano * HISTORY AND PHYSICAL: DATE OF ADMISSION: 05/23/18 PRIMARY CARE PROVIDER: Dr. Schmid. HAND EDGE BANDER: Dr. Soriano. CHIEF COMPLAINT: Chest pain. HISTORY OF PRESENT ILLNESS: Ms. Tsai is a 67-year-old female who has a known history of coronary artery disease and underwent triple vessel bypass in February of this year who presents to the emergency room with complaints of sudden onset of severe chest discomfort with associated profuse diaphoresis. The patient states that she was in her usual state of health when going to bed last evening. A little before 2 a.m. on the day of admission, the patient awakened to go to the bathroom. She walked to the bathroom, she urinated and then walking back, she noticed that she was having severe chest discomfort. She described this as her entire chest felt funny. It was uncomfortable. It did not feel like the pressure that she had in February of this year when she was admitted for non-ST elevation NM. The patient states that shortly after the chest discomfort began, she developed severe profuse diaphoresis. Because of this, the patient presented to the emergency room for evaluation. The patient has been started on a nitroglycerin drip in the emergency room and with this her chest discomfort has essentially resolved. During the episode of chest discomfort, she did not have any palpitations, shortness of breath, or nausea. She does state that the discomfort radiated down into her left arm. PAST MEDICAL HISTORY: 1. Rheumatoid arthritis. 2. Hypothyroidism. 3. Chronic pain. 4. Coronary artery disease. PAST SURGICAL HISTORY: 1. Three-vessel coronary artery bypass. 2. Hysterectomy. 3. Bilateral cataracts. MEDICATIONS: 1. Acyclovir 400 mg p.o. t.i.d. p.r.n. rash. 2. Calcium carbonate 1000 mg p.o. q.h.s. 3. Aspirin 81 mg p.o. b.i.d. a.c. 4. Ascorbic acid 500 mg p.o. b.i.d. 5. Simponi 50 mg subcutaneous monthly. 6. Desipramine 150 mg p.o. daily. 7. Vitamin D 2000 units p.o. b.i.d. 8. Levothyroxine 125 mcg p.o. daily. 9. Leflunomide 20 mg p.o. daily. 10. Hydrocodone/APAP 5/300, 1 to 2 tabs p.o. q.6 hours p.r.n. pain. 12. Loratadine 10 mg p.o. daily p.r.n. 13. Wellbutrin XL 225 mg p.o. daily. 14. Vitamin B complex 1 tab p.o. q.h.s. 15. Morphine extended release 60 mg p.o. q.12 hours. ALLERGIES: CEFACLOR, CIPRO, ERYTHROMYCIN, GOLD SALTS, HYDROXYCHLOROQUINE, LINEZOLID, METHOTREXATE, OMEPRAZOLE, PENICILLIN, SYSTANE EYE DROPS, SULFA, TETRACYCLINE. FAMILY HISTORY: Mom at the age of 84 of CHF. Dad at the age of 75 with emphysema. SOCIAL HISTORY: The patient is a nonsmoker. She drinks alcohol rarely. 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 She is . She has 1 daughter who is her healthcare proxy, her name is Lou. REVIEW OF SYSTEMS: A complete 11-system review of systems is obtained. Pertinent positives and negatives are as per HPI and in addition, the patient does complain of dysuria and states dysuria has been present since her admission for her NM in February. The rest of the review of systems is negative. PHYSICAL EXAMINATION GENERAL: The patient is a well-developed, middle-aged female seen sitting up in the stretcher, in no acute distress. VITAL SIGNS: Blood pressure initially 208/118, subsequently 137/98 that is on the nitro infusion; heart rate 85; respirations 18; temp 95.6; O2 sat 100% on room air. HEENT: Pupils are equal and round. Extraocular muscles are intact. Oropharynx is clear. Oral mucosa is moist. There is no submandibular, cervical , or supraclavicular adenopathy. Thyroid is not enlarged. No thyroid nodules are noted. PULMONARY: Lungs are clear with a few coarse crackles at the lungs bilaterally. CARDIAC: Normal S1, S2. Heart rate is regular. There is trace left lower extremity pitting edema. ABDOMEN: Bowel sounds are present. Abdomen is soft, nontender, nondistended. MUSCULOSKELETAL: There is no cyanosis or clubbing of the digits. There is full active range of motion of all 4 extremities. NEURO: Cranial nerves II through XII are grossly intact. Sensation is intact to light touch throughout. Strength is 5/5 and symmetric in both upper and lower extremities bilaterally. PSYCH: The patient is alert. She is oriented x3. Affect appears appropriate. SKIN: Warm and dry. There are no rashes. LABORATORY DATA/DIAGNOSTIC STUDIES: WBC 7.6, hemoglobin 14.5, hematocrit 44, platelets 215. INR 0.99. Sodium 136, potassium 3.9, chloride 99, CO2 of 28, BUN 20, creatinine 0.93, glucose 112, calcium 9.8. Bilirubin 0.4, AST 20, ALT 23, alk phos 64. CPK 88, CK-MB 3.0, myoglobin 44.8. Troponin 0.01. BNP 15. Albumin of 4.3. EKG reveals normal sinus rhythm with ST elevation in lead III and slightly in aVF. Chest x-ray to my interpretation with possible pulmonary vascular congestion. Former radiology report is pending. ASSESSMENT AND PLAN: Ms. Tsai is a 67-year-old female with history of coronary artery disease, hypothyroidism, and rheumatoid arthritis who presents to the emergency room with complaints of chest discomfort and profuse diaphoresis. 1. Chest discomfort. The etiology behind this is not clear. It would seem odd that the patient would have an NM just 3 months post her triple vessel bypass. The patient's story is quite concerning, however. I will continue the nitroglycerin for now. She was markedly hypertensive when she arrived to the emergency room, so perhaps this was the cause of her chest discomfort. With the nitroglycerin infusion, her blood pressure has improved quite a bit. The patient was started on a heparin drip for concerns for [id number] NM. She does have a slight elevation in lead III and possibly aVF. The ER provider spoke with Dr. Vieyra who recommended treating the patient medically. She will be admitted to the intensive care unit. She will continue on her aspirin. Again, she will continue on the nitro drip and the heparin drip. Cardiology consultation will be requested. 2. Rheumatoid arthritis. I am going to hold the patient's Simponi and leflunomide for now. She will continue with her p.r.n. hydrocodone and standing MS Contin. 3. Depression. Continue desipramine and Wellbutrin. 4. Hypothyroidism. Continue current dose of Synthroid. 5. DVT prophylaxis: According to the Adult Thrombosis Prophylaxis Risk Factor Assessment Guide, the patient has a total risk factor score of 4, making her high risk. She is on heparin drip and this will act as her DVT prophylaxis for now. 6. Code status is full. TIME SPENT: 65 minutes were spent admitting this patient of which greater than half was spent [id number] with the patient reviewing her history and performing a physical exam. [id number]/[facility] #: [id number] SYD
--- NOTE | 2018-05-23 08:49 | RAD ---
INDICATION: Chest pain. Coronary artery bypass in February 2018. COMPARISON: Chest radiograph of the same date. TECHNIQUE: Multidetector CT images were obtained from the lung apices to the upper abdomen with 72 mL Omnipaque 350 IV contrast. Pulmonary angiogram protocol. Multiplanar reformation including with maximum intensity projection. REPORT: Mild prominence of the interstitial markings and minimal dependent basilar atelectasis. No suspicious focal pulmonary lesion, pleural effusions, pneumothorax. Negative for thoracic lymphadenopathy, cardiomegaly, or pericardial effusion. Postsurgical change of coronary artery bypass. Normal diameter thoracic aorta with mild atherosclerotic plaque. No evidence for dissection of the thoracic aorta within limits of pulmonary angiogram protocol CT. Minimal postsurgical edema or granulation present surrounding the median sternotomy site without evidence for a soft tissue plane abscess collection. No filling defects are identified from the main to the subsegmental pulmonary arteries to indicate presence of a pulmonary embolism. Images through the upper abdomen are remarkable for cholelithiasis without additional CT abnormality of the gallbladder, advanced fatty replacement of the pancreas, and normal variant RIGHT greater than LEFT extrarenal pelves. Negative for thoracic fractures or suspicious thoracic osseous lesions. IMPRESSION: #. Negative for pulmonary embolism. #. Negative for pulmonary edema. #. Minimal postsurgical edema or granulation present surrounding the median sternotomy site without evidence for a soft tissue plane abscess collection. #. Cholelithiasis.
[2018-05-23] MEDS ORDERED: WELLBUTRIN PO SCH (09:00)
[2018-05-23] MEDS ORDERED: Iohexol 350* (CONTRAST) 500 ML MDV IV SCH (09:00)
--- NOTE | 2018-05-23 09:22 | PN ---
Subjective Date of Service: 05/23/18 Interval History: Pt had CP in b/l chest radiating to back that lasted 3 hrs and was better with sitting up. The pain was not pleuritic and did not worsen with movement.Resolved now. Objective Active Medications: Acetaminophen (Tylenol Tab*) 650 mg PO Q4H PRN PRN Reason: PAIN Hydrocodone Bitart/Acetaminophen ([place] 5-325 Tab*) 1 tab PO Q6H PRN PRN Reason: PAIN Aspirin (Aspirin Ec Tab*) 81 mg PO BID AC [facility] Last Admin: 05/23/18 07:44 Dose: 81 mg Bupropion HCl (Wellbutrin Tab*) 75 mg PO TID WITH MEALS [facility] Calcium Carbonate (Tums*) 1,000 mg PO QPM [facility] Cholecalciferol (Vitamin D Tab*) 2,000 units PO BID [facility] Last Admin: 05/23/18 08:01 Dose: 2,000 units Desipramine HCl (Norpramin Tab*) 150 mg PO DAILY [facility] Last Admin: 05/23/18 07:44 Dose: 150 mg Heparin Sodium (Porcine) (Heparin Vial(*)) 0 units IV .FOR BOLUSES PRN PRN Reason: HEPARIN DRIP BOLUSES Nitroglycerin/Dextrose 25,000 (mcg/ IV Solution) 250 mls @ 6 mls/hr IV ED ONCE ONE Stop: 05/24/18 21:08 Last Admin: 05/23/18 04:01 Dose: 6 mls/hr Heparin Sodium/Dextrose (Heparin Drip 25,000 Units(*)) 25,000 units in 500 mls @ 0 mls/hr IV PER RATE [place]; Protocol Last Admin: 05/23/18 04:02 Dose: 16 mls/hr Iohexol (Omnipaque 350 (Contrast)-) 72 ml IV ONCE [place] Stop: 05/25/18 08:17 Levothyroxine Sodium (Synthroid Tab*) 125 mcg PO 0600 [facility] Last Admin: 05/23/18 07:44 Dose: 125 mcg Morphine Sulfate (Ms Contin(*)) 60 mg PO Q12HR [facility] Last Admin: 05/23/18 07:44 Dose: 60 mg Vitamin B Complex/Vitamin E (B Complex-50*) 1 tab PO QPM [facility] Vital Signs - 8 hr 05/23/18 05/23/18 05/23/18 03:26 03:28 03:30 Temperature 95.6 F Pulse Rate 85 85 86 Respiratory 18 18 14 Rate Blood Pressure 208/118 208/118 (mmHg) O2 Sat by Pulse 100 98 97 Oximetry 05/23/18 05/23/18 05/23/18 03:37 03:42 03:52 Temperature Pulse Rate 99 101 98 Respiratory 19 36 27 Rate Blood Pressure 137/96 122/78 (mmHg) O2 Sat by Pulse 94 97 97 Oximetry 05/23/18 05/23/18 05/23/18 03:57 04:00 04:02 Temperature Pulse Rate 94 93 94 Respiratory 16 15 19 Rate Blood Pressure 134/97 142/95 (mmHg) O2 Sat by Pulse 96 96 96 Oximetry 05/23/18 05/23/18 05/23/18 04:07 04:12 04:17 Temperature Pulse Rate 94 91 90 Respiratory 13 9 6 Rate Blood Pressure 147/102 152/98 159/101 (mmHg) O2 Sat by Pulse 97 97 97 Oximetry 05/23/18 05/23/18 05/23/18 04:22 04:27 04:33 Temperature Pulse Rate 91 91 Respiratory 21 16 19 Rate Blood Pressure 162/103 156/122 136/94 (mmHg) O2 Sat by Pulse 96 97 Oximetry 05/23/18 05/23/18 05/23/18 04:38 04:42 04:47 Temperature Pulse Rate Respiratory 19 19 16 Rate Blood Pressure 155/99 142/106 135/94 (mmHg) O2 Sat by Pulse Oximetry 05/23/18 05/23/18 05/23/18 04:57 05:00 05:02 Temperature Pulse Rate Respiratory 21 20 22 Rate Blood Pressure 150/102 153/96 (mmHg) O2 Sat by Pulse Oximetry 05/23/18 05/23/18 05/23/18 05:07 05:12 05:17 Temperature Pulse Rate Respiratory 17 16 21 Rate Blood Pressure 137/98 158/99 148/109 (mmHg) O2 Sat by Pulse Oximetry 05/23/18 05/23/18 05/23/18 05:22 05:27 05:32 Temperature Pulse Rate Respiratory 14 18 22 Rate Blood Pressure 150/92 162/95 155/94 (mmHg) O2 Sat by Pulse Oximetry 05/23/18 05/23/18 05/23/18 05:37 05:42 05:47 Temperature Pulse Rate Respiratory 20 20 19 Rate Blood Pressure 155/95 153/100 160/99 (mmHg) O2 Sat by Pulse Oximetry 05/23/18 05/23/18 05/23/18 05:52 05:57 06:00 Temperature Pulse Rate Respiratory 17 18 16 Rate Blood Pressure 153/98 146/96 (mmHg) O2 Sat by Pulse Oximetry 05/23/18 05/23/18 05/23/18 06:02 06:07 06:12 Temperature Pulse Rate Respiratory 17 20 19 Rate Blood Pressure 145/92 136/95 147/98 (mmHg) O2 Sat by Pulse Oximetry 05/23/18 05/23/18 05/23/18 06:17 06:19 06:22 Temperature 97 F Pulse Rate 87 89 Respiratory 15 18 14 Rate Blood Pressure 154/98 154/98 157/98 (mmHg) O2 Sat by Pulse 94 97 Oximetry 05/23/18 05/23/18 05/23/18 06:28 06:51 07:00 Temperature Pulse Rate 93 85 88 Respiratory 17 17 19 Rate Blood Pressure 147/92 149/90 160/104 (mmHg) O2 Sat by Pulse 96 94 94 Oximetry 05/23/18 05/23/18 05/23/18 07:15 07:31 07:46 Temperature Pulse Rate 85 84 88 Respiratory 18 18 22 Rate Blood Pressure 145/94 136/82 135/97 (mmHg) O2 Sat by Pulse 93 95 91 Oximetry 05/23/18 05/23/18 08:00 08:50 Temperature 97 F Pulse Rate 92 Respiratory 23 17 Rate Blood Pressure 147/92 (mmHg) O2 Sat by Pulse 99 Oximetry Oxygen Devices in Use Now: None Appearance: 67 yo F in NAD, aAOx3 Eyes: No Scleral Icterus, PERRLA Ears/Nose/Mouth/Throat: NL Teeth, Lips, Gums, Mucous Membranes Moist Neck: NL Appearance and Movements; NL JVP, Trachea Midline Respiratory: Symmetrical Chest Expansion and Respiratory Effort, Clear to Auscultation, - - post sternotomy scar noted-well healed Cardiovascular: NL Sounds; No Murmurs; No JVD, RRR Abdominal: NL Sounds; No Tenderness; No Distention Lymphatic: No Cervical Adenopathy Extremities: No Edema, No Clubbing, Cyanosis Skin: No Rash or Ulcers, No Nodules or Sclerosis Neurological: Alert and Oriented x 3, NL Muscle Strength and Tone Result Diagrams: 05/23/18 07:53 05/23/18 07:53 Assess/Plan/Problems-Billing Assessment: 67 yo f with h/o RA(on bilogic agents), CAD(CABG x [address] [place] [address] Florence in 02/2018) presented with CP - Patient Problems (1) Chest pain Comment: Mild ST elevation in lead III Pt is CP free troponin up to 0.5 cont ASA, heparin gtt BB, Brilinta, Lipitor added by Cardiology. Appreciate Dr. Whyte's consult (2) Arthritis, rheumatoid Comment: Stable (3) UTI (urinary tract infection) Comment: dx made as outpatient, pt was placed on macrodantin which will be restarted UA showed no bacteria (4) DVT prophylaxis Comment: On heparin drip Status and Disposition: OBV will be changed to inpatient
--- NOTE | 2018-05-23 09:25 | RAD ---
Indication: Chest pain. Comparison: May 23, 2018 CT. Technique: Upright AP 0358 hours Report: No focal pulmonary lesion, compelling alveolar consolidation, pleural effusion, pneumothorax. Median sternotomy wires and mediastinal vascular clips. Negative for cardiomegaly. Unremarkable central pulmonary vasculature and mediastinal contours accounting for mild rightward rotation. IMPRESSION: #. No evidence for acute intrathoracic disease. R0
[2018-05-23] MEDS: buPROPion TAB* 75 MG PO SCH ×3 (10:16→17:12)
[2018-05-23] MEDS: Metoprolol Tartrate TAB* 25 MG PO SCH ×3 (10:26→21:09)
[2018-05-23] MEDS: Acetaminophen TAB* 325 MG PO PRN (11:40)
[2018-05-23] MEDS ORDERED: fentaNYL* 50 MCG/ML 2 ML VIAL (100 MCG VIAL) ONE (12:12)
[2018-05-23] MEDS ORDERED: Heparin 2 UNITS/ML IVPREMIX* 3,000 ML IV ONE (12:12)
[2018-05-23] MEDS ORDERED: Midazolam* 1 MG/ML 10 ML VIAL (10 MG) ONE (12:12)
[2018-05-23] MEDS ORDERED: Heparin(*) 1000 UNIT/ML 10 ML VIAL CATH LAB IV ONE (12:12)
[2018-05-23] MEDS ORDERED: Iohexol 350 (CONTRAST) 200 ML MDV IV ONE (12:12)
[2018-05-23] MEDS ORDERED: Lidocaine 1%* 5 ML VIAL ONE ×2 (12:12→12:23)
--- NOTE | 2018-05-23 12:52 | CONSULT ---
Subjective Date of Service: 05/23/18 Interval History: Admission Date: 05/23/18 Date of consult: 05/23/2018 Provider: Hospitalist Tool Shaper Setup Operator: Dr Soriano PMD: Dr. Schmid CHIEF COMPLAINT: Chest pain Reason for consult: Acute PR HISTORY OF PRESENT ILLNESS: Ms. Tsai is a 67-year-old woman with a history as below including PR, CAD s/p CABG 02/2018. She was in her usual state of health. She had sudden onset of SSCP associated with diaphoresis this AM. The discomfort felt more widespread across the chest than her February PR. An ekg showed an inferior wall infarct and cardiac enzymes were + diagnostic of ACS. She received medical therapy and is currently pain free. She has had no change of breathing, palpitations or syncope. PAST MEDICAL HISTORY: 1. Rheumatoid arthritis. 2. Hypothyroidism. 3. Chronic pain. 4. Coronary artery disease/acute PR PAST SURGICAL HISTORY: 1. Three-vessel coronary artery bypass Dr. Ash [facility]: MICHEL-LAD, SVG-OM, SVG- PDA 2. Hysterectomy. 3. Bilateral cataracts. ALLERGIES: CEFACLOR, CIPRO, ERYTHROMYCIN, GOLD SALTS, HYDROXYCHLOROQUINE, LINEZOLID, METHOTREXATE, OMEPRAZOLE, PENICILLIN, SYSTANE EYE DROPS, SULFA, TETRACYCLINE. FAMILY HISTORY: Mom at the age of 84 of CHF. Dad at the age of 75 with emphysema. SOCIAL HISTORY: The patient is a nonsmoker. She drinks alcohol rarely. 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 She is . She has 1 daughter who is her healthcare proxy, her name is Lou. Medications Active Medications: Acetaminophen (Tylenol Tab*) 650 mg PO Q4H PRN PRN Reason: PAIN Last Admin: 05/23/18 11:40 Dose: 650 mg Hydrocodone Bitart/Acetaminophen ([place] 5-325 Tab*) 1 tab PO Q6H PRN PRN Reason: PAIN Aspirin (Aspirin Ec Tab*) 81 mg PO DAILY [facility] Atorvastatin Calcium (Lipitor*) 80 mg PO 2100 [facility] Bupropion HCl (Wellbutrin Tab*) 75 mg PO TID WITH MEALS [facility] Last Admin: 05/23/18 10:16 Dose: Not Given Calcium Carbonate (Tums*) 1,000 mg PO QPM [facility] Cholecalciferol (Vitamin D Tab*) 2,000 units PO BID [facility] Last Admin: 05/23/18 08:01 Dose: 2,000 units Desipramine HCl (Norpramin Tab*) 150 mg PO DAILY [facility] Last Admin: 05/23/18 07:44 Dose: 150 mg Heparin Sodium (Porcine) (Heparin Vial(*)) 0 units IV .FOR BOLUSES PRN PRN Reason: HEPARIN DRIP BOLUSES Nitroglycerin/Dextrose 25,000 (mcg/ IV Solution) 250 mls @ 6 mls/hr IV ED ONCE ONE Stop: 05/24/18 21:08 Last Admin: 05/23/18 04:01 Dose: 6 mls/hr Heparin Sodium/Dextrose (Heparin Drip 25,000 Units(*)) 25,000 units in 500 mls @ 0 mls/hr IV PER RATE [facility]; Protocol Last Admin: 05/23/18 04:02 Dose: 16 mls/hr Iohexol (Omnipaque 350 (Contrast)-) 72 ml IV ONCE [facility] Stop: 05/25/18 08:17 Levothyroxine Sodium (Synthroid Tab*) 125 mcg PO 0600 [facility] Last Admin: 05/23/18 07:44 Dose: 125 mcg Metoprolol Tartrate (Lopressor Tab*) 25 mg PO Q8HR [facility] Last Admin: 05/23/18 10:26 Dose: 25 mg Morphine Sulfate (Ms Contin(*)) 60 mg PO Q12HR [facility] Last Admin: 05/23/18 07:44 Dose: 60 mg Nitrofurantoin Macrocrystals (Macrodantin*) 100 mg PO BID [facility] Ticagrelor (Brilinta*) 90 mg PO BID [facility] Vitamin B Complex/Vitamin E (B Complex-50*) 1 tab PO QPM [facility] Home Medications: Aspirin [Aspirin 81] 81 mg PO BID AC 01/11/14 [History Confirmed 05/23/18] Atorvastatin 40 mg lisinopril 2.5 mg Leflunomide 20 mg PO QAM 01/11/14 [History Confirmed 05/23/18] Wellbutrin Xl 225 mg PO QAM 01/11/14 [History Confirmed 05/23/18] Acyclovir* [Zovirax 400 MG TAB*] 400 mg PO TID PRN 02/11/18 [History Confirmed 05/23/18] Ascorbic Acid TAB* [Vitamin C TAB*] 500 mg PO BID 02/11/18 [History Confirmed 05/23/18] Calcium Carbonate [Calcium] 1,000 mg PO QPM 02/11/18 [History Confirmed 05/23/18 ] Cholecalciferol TAB* [Vitamin D TAB*] 2,000 units PO BID 02/11/18 [History Confirmed 05/23/18] Desipramine TAB* [Norpramin TAB*] 150 mg PO DAILY 02/11/18 [History Confirmed ] Golimumab [Simponi] 50 mg SUBCUT MONTHLY 02/11/18 [History Confirmed 05/23/18] Hydrocodone/APAP 5/300 (NF) [Vicodin 5 MG/300 MG(NF)] 1 - 2 tab PO Q6H PRN 02/11 [History Confirmed 05/23/18] Levothyroxine TAB* [Synthroid TAB*] 125 mcg PO DAILY 02/11/18 [History Confirmed 05/23/18] LoraTADine TAB(NF) [Claritin 10 MG TAB(NF)] 10 mg PO DAILY PRN 02/11/18 [ History Confirmed 05/23/18] Morphine TAB Extended Rel(*) [Ms Contin(*)] 60 mg PO Q12HR 02/11/18 [History Confirmed 05/23/18] Vitamin B Complex TAB* [B Complex-50*] 1 tab PO QPM 02/11/18 [History Confirmed 05/23/18] Review of Systems - Measurements Intake and Output: Intake and Output Last 24 Hours 05/21/18 05/22/18 05/23/18 05/24/18 06:59 06:59 06:59 06:59 Intake Total 240 Output Total 1100 Balance -860 Weight 185 lb 3.013 oz 185 lb 3.013 oz Intake: Oral 240 Output: Urine 1100 - Review of Systems Constitutional Symptoms: Negative: Weight Gain, Weight Loss Dermatology: Negative: Rash, Skin Lesions HEENT: Negative: Change in Hearing, Vertigo Eyes: Negative: Change in Vision, Double Vision Thyroid: Negative: Cold Intolerance, Heat Intolerance, Palpitations, Weight Loss, Weight Gain Pulmonary: Negative: Cough, Sputum, Hemoptysis, Home Oxygen Cardiology: Positive: Chest Pain Negative: Shortness of Breath, Palpitations, Swelling of Ankles, Peripheral Vascular Dis, Edema, Faintness, Syncope, Claudication, Paroxysmal Nocturnal Dyspnea, Orthopnea Gastroenterology: Negative: Vomiting, Anorexia, Heartburn, Constipation, Diarrhea, Haematemesis , Melena Genital - Urinary: Negative: Dysuria, Hematuria Musculoskeletal: Negative: Joint Pain, Joint Stiffness Endocrinology: Negative: Obesity, Diabetes, Polydipsia, Polyuria Hematologic/Lymphatic: Positive: Use of Antiplatelet Drugs Negative: Use of Anticoagulant Neurology: Negative: Change in Vision, Diplopia, Dizziness, Change in Balancing, Change in Coordination, Change in Speech, Change in Sphincter Function Psychiatry: Negative: Unusual Anxiety, Eating Disorders Allergic/Immunologic: Positive: Athsma Negative: Hx HIV, Swollen Glands Lymph Nodes Review of Systems Statement: All other review of systems negative, unless stated above. Objective Vital Signs: Temp Pulse Resp BP Pulse Ox 95.7 F 89 12 136/95 95 05/23/18 12:00 05/23/18 10:15 05/23/18 11:00 05/23/18 10:15 05/23/18 10:15 Oxygen Devices in Use Now: None Appearance: nad, pleasant Ears/Nose/Mouth/Throat: Clear Oropharnyx, Mucous Membranes Moist Neck: NL Appearance and Movements; NL JVP, Trachea Midline Respiratory: Symmetrical Chest Expansion and Respiratory Effort, Clear to Auscultation Cardiovascular: RRR, No Edema, - - sternotomy healed, no significant edema Abdominal: NL Sounds; No Tenderness; No Distention Extremities: No Edema, No Clubbing, Cyanosis Skin: No Rash or Ulcers Neurological: Alert and Oriented x 3 Laboratory Results: 05/23/18 07:53 05/23/18 07:53 INR (Anticoag Therapy) 0.99 (0.77-1.02) 05/23/18 03:27 APTT 54.7 seconds (26.0-36.3) H 05/23/18 10:27 Total Bilirubin 0.40 mg/dL (0.2-1.0) 05/23/18 03:27 AST 20 U/L (13-39) 05/23/18 03:27 ALT 23 U/L (7-52) 05/23/18 03:27 Alkaline Phosphatase 64 U/L (34-104) 05/23/18 03:27 CK-MB (CK-2) 3.0 ng/mL (0.6-6.3) 05/23/18 03:27 B-Natriuretic Peptide 15 pg/mL (-100) 05/23/18 03:27 Total Protein 7.4 g/dL (6.4-8.9) 05/23/18 03:27 Albumin 4.3 g/dL (3.2-5.2) 05/23/18 03:27 Globulin 3.1 g/dL (2-4) 05/23/18 03:27 Albumin/Globulin Ratio 1.4 (1-3) 05/23/18 03:27 05/23/18 05/23/18 03:27 07:53 Troponin I 0.01 0.56 H* Diagnostic Imaging: cardiac catheterization 02/12/2018: NSTEMI, Dr. Vieyra RFA: LVEF 50% with inferolateral hypokinesis: multivessel CAD including 75% LM ct pe study this admission: no dissection or pe Assessment/Plan In summary, Nilam Tsai is a 67 year old woman with a history as above admitted with ACS. - Continue aspirin, statin, brillinta, heparin, nitroglycerine gtt and beta- sarika - Dr. Vieyra has opted to for patient to have cardiac catheterization with intent for revascularization today which I agree with. She also got dye for a CT study and will need IF fluids Thank you for allowing me to participate in the cardiovascular care of this patient. Please do not hesitate to contact me with questions or concerns.
[2018-05-23] MEDS ORDERED: Adenosine* 3 MG/ML VIAL ONE (13:23)
[2018-05-23] MEDS ORDERED: NS 0.9% 1000 ML* 1,500 ML IV ONE (14:19)
[2018-05-23] MEDS: Nitrofurantoin Macrocrystals* 50 MG CAP PO SCH ×2 (15:43→20:03)
[2018-05-23] MEDS: Calcium Carbonate CHEW TAB* 500 MG (TUMS) PO SCH (17:12)
[2018-05-23] MEDS: Vitamin B Complex TAB PO SCH (17:12)
[2018-05-23] MEDS: Ticagrelor* 90 MG TAB PO SCH (20:03)
[2018-05-23] MEDS: Atorvastatin* 80 MG TAB PO SCH (20:03)
[2018-05-24] MEDS: Acetaminophen TAB* 325 MG PO PRN (03:29)
[2018-05-24 05:23] LABS: ABS Basophils 0.1 10^3/ul (0-0.2); ABS Eosinophils 0.2 10^3/ul (0-0.6); ABS Lymphocytes 2.2 10^3/ul (1.0-4.8); ABS Monocytes 0.8 10^3/ul (0-0.8); ABS Nucleated RBC 0 10^3/ul; Eosinophil % 2.8 % (0-6); Hematocrit 36 % (35-47); Hemoglobin 11.8 g/dl (12.0-16.0); Lymphocyte % 26.3 % (25-47); Mean Corpuscular HGB Conc 33 g/dl (31-36); Mean Corpuscular Hemoglobin 27 pg (27-31); Mean Corpuscular Volume 82 fL (80-97); Mean Platelet Volume 7.6 um3 (7.4-10.4); Nucleated Red Blood Cells % 0.1; Platelet Count 193 10^3/ul (150-450); Red Blood Count 4.37 10^6/ul (4.00-5.40); Red Cell Distribution Width 16 % (10.5-15); White Blood Count 8.2 10^3/ul (3.5-10.8)
[2018-05-24] MEDS: Levothyroxine TAB* 125 MCG TAB PO SCH (06:20)
[2018-05-24] MEDS: Metoprolol Tartrate TAB* 25 MG PO SCH ×2 (06:53→19:59)
[2018-05-24] MEDS ORDERED: Nitrofurantoin Macrocrystals* 50 MG CAP PO SCH (08:00)
[2018-05-24] MEDS ORDERED: Lisinopril TAB* 5 MG PO SCH (09:00)
[2018-05-24] MEDS ORDERED: Metoprolol Tartrate IV* 1 MG/ML 5 ML VIAL IV PRN (09:07)
--- NOTE | 2018-05-24 09:13 | PN ---
Subjective Date of Service: 05/24/18 Interval History: Pt SBP had been in 150's this am , still on Nitro gtt at 6 mcg Denies any CP/SOB Objective Active Medications: Acetaminophen (Tylenol Tab*) 650 mg PO Q4H PRN PRN Reason: PAIN Last Admin: 05/24/18 03:29 Dose: 650 mg Hydrocodone Bitart/Acetaminophen ([place] 5-325 Tab*) 1 tab PO Q6H PRN PRN Reason: PAIN Last Admin: 05/23/18 15:43 Dose: 1 tab Aspirin (Aspirin Ec Tab*) 81 mg PO DAILY [facility] Atorvastatin Calcium (Lipitor*) 80 mg PO 2100 [facility] Last Admin: 05/23/18 20:03 Dose: 80 mg Bupropion HCl (Wellbutrin Tab*) 75 mg PO TID WITH MEALS [facility] Last Admin: 05/23/18 17:12 Dose: 75 mg Calcium Carbonate (Tums*) 1,000 mg PO QPM [facility] Last Admin: 05/23/18 17:12 Dose: 1,000 mg Cholecalciferol (Vitamin D Tab*) 2,000 units PO BID [facility] Last Admin: 05/23/18 20:03 Dose: 2,000 units Desipramine HCl (Norpramin Tab*) 150 mg PO DAILY [facility] Last Admin: 05/23/18 07:44 Dose: 150 mg Heparin Sodium (Porcine) (Heparin Vial(*)) 0 units IV .FOR BOLUSES PRN PRN Reason: HEPARIN DRIP BOLUSES Iohexol (Omnipaque 350 (Contrast)-) 72 ml IV ONCE [facility] Stop: 05/25/18 08:17 Levothyroxine Sodium (Synthroid Tab*) 125 mcg PO 0600 [facility] Last Admin: 05/24/18 06:20 Dose: 125 mcg Lisinopril (Prinivil Tab*) 2.5 mg PO DAILY [facility] Metoprolol Tartrate (Lopressor Tab*) 25 mg PO Q8HR [facility] Last Admin: 05/24/18 06:53 Dose: 25 mg Morphine Sulfate (Ms Contin(*)) 60 mg PO Q12HR [facility] Last Admin: 05/23/18 20:03 Dose: 60 mg Nitrofurantoin Macrocrystals (Macrodantin*) 100 mg PO 0800,1700 [facility] Ticagrelor (Brilinta*) 90 mg PO BID [facility] Last Admin: 05/23/18 20:03 Dose: 90 mg Vitamin B Complex/Vitamin E (B Complex-50*) 1 tab PO QPM [facility] Last Admin: 05/23/18 17:12 Dose: 1 tab Vital Signs - 8 hr 05/24/18 05/24/18 05/24/18 02:00 02:01 03:00 Temperature Pulse Rate 66 67 66 Respiratory 14 17 17 Rate Blood Pressure 152/67 (mmHg) O2 Sat by Pulse 94 95 95 Oximetry 05/24/18 05/24/18 05/24/18 03:01 03:26 04:00 Temperature 97.6 F Pulse Rate 68 74 Respiratory 21 18 Rate Blood Pressure 131/73 125/72 (mmHg) O2 Sat by Pulse 94 95 Oximetry 05/24/18 05/24/18 05/24/18 05:00 06:00 07:00 Temperature Pulse Rate 64 66 Respiratory 19 14 18 Rate Blood Pressure 136/71 156/85 (mmHg) O2 Sat by Pulse 92 94 Oximetry 05/24/18 05/24/18 07:01 07:56 Temperature 96.3 F Pulse Rate 64 Respiratory 17 Rate Blood Pressure 163/103 (mmHg) O2 Sat by Pulse 95 Oximetry Oxygen Devices in Use Now: None Appearance: 67 yo F in nAD, aAOx3 Eyes: No Scleral Icterus, PERRLA Ears/Nose/Mouth/Throat: NL Teeth, Lips, Gums, Mucous Membranes Moist Neck: NL Appearance and Movements; NL JVP, Trachea Midline Respiratory: Symmetrical Chest Expansion and Respiratory Effort, Clear to Auscultation Cardiovascular: NL Sounds; No Murmurs; No JVD, RRR Abdominal: NL Sounds; No Tenderness; No Distention Lymphatic: No Cervical Adenopathy Extremities: No Edema, No Clubbing, Cyanosis Skin: No Rash or Ulcers, No Nodules or Sclerosis Neurological: Alert and Oriented x 3, NL Muscle Strength and Tone Result Diagrams: 05/24/18 05:11 05/24/18 05:11 Microbiology and Other Data: Microbiology 05/23/18 07:29 Nasal Screen MRSA (PCR) - Final Nasal Mrsa Not Detected Assess/Plan/Problems-Billing Assessment: 67 yo f with h/o RA(on bilogic agents), CAD(CABG x [address] [place] [address] Florence in 02/2018) presented with CP - Patient Problems (1) Chest pain Comment: Mild ST elevation in lead III Pt is CP free troponin peaked at 7 on 05/23/18. Dx with NSTEMI. s/p cath by Dr. Vieyra-the culprit vessel too small to stent. cont med tx. cont ASA/Brilinta Appreciate Dr. Whyte's consult (2) Arthritis, rheumatoid Comment: Stable Leflunomide will be restarted once family brings medication Pt's diffuse CAD is probably due to RA (3) UTI (urinary tract infection) Comment: dx made as outpatient, cont macrodantin UA showed no bacteria (4) HTN (hypertension) Comment: uncontrolled. Will cont lopressor TID, restart Lisinopril at home dose D/c Nitro gtt Transfer to telem later on today (5) Hyperglycemia Comment: mild, will check HbA1C (6) DVT prophylaxis Comment: off heparin gtt. start HSQ Status and Disposition: inpatient
[2018-05-24] MEDS: Ticagrelor* 90 MG TAB PO SCH ×2 (09:19→19:43)
[2018-05-24] MEDS: Morphine TAB Extended Release (*) 30 MG TAB.ER PO SCH ×2 (09:19→19:41)
[2018-05-24] MEDS: Aspirin EC TAB* 81 MG TAB.EC PO SCH (09:19)
[2018-05-24] MEDS: Cholecalciferol TAB* 1000 UNITS PO SCH ×2 (09:19→19:40)
[2018-05-24] MEDS: buPROPion TAB* 75 MG PO SCH ×3 (09:20→19:39)
[2018-05-24] MEDS: Desipramine TAB* 50 MG PO SCH (09:21)
[2018-05-24] MEDS ORDERED: Lisinopril TAB* 5 MG PO ONE (11:06)
--- NOTE | 2018-05-24 11:07 | PN ---
Subjective Date of Service: 05/24/18 Interval History: f/u NH no chest pain or dyspnea no groin pain or leg pain wants to go home tele SR no arrhythmias Medications Active Medications: Acetaminophen (Tylenol Tab*) 650 mg PO Q4H PRN PRN Reason: PAIN Last Admin: 05/24/18 03:29 Dose: 650 mg Hydrocodone Bitart/Acetaminophen ([place] 5-325 Tab*) 1 tab PO Q6H PRN PRN Reason: PAIN Last Admin: 05/23/18 15:43 Dose: 1 tab Aspirin (Aspirin Ec Tab*) 81 mg PO DAILY [facility] Last Admin: 05/24/18 09:19 Dose: 81 mg Atorvastatin Calcium (Lipitor*) 80 mg PO 2100 [facility] Last Admin: 05/23/18 20:03 Dose: 80 mg Bupropion HCl (Wellbutrin Tab*) 75 mg PO TID WITH MEALS [facility] Last Admin: 05/24/18 09:20 Dose: 75 mg Calcium Carbonate (Tums*) 1,000 mg PO QPM [facility] Last Admin: 05/23/18 17:12 Dose: 1,000 mg Cholecalciferol (Vitamin D Tab*) 2,000 units PO BID [facility] Last Admin: 05/24/18 09:19 Dose: 2,000 units Desipramine HCl (Norpramin Tab*) 150 mg PO DAILY [facility] Last Admin: 05/24/18 09:21 Dose: 150 mg Heparin Sodium (Porcine) (Heparin Vial(*)) 5,000 units SUBCUT Q8HR [facility] Levothyroxine Sodium (Synthroid Tab*) 125 mcg PO 0600 [facility] Last Admin: 05/24/18 06:20 Dose: 125 mcg Lisinopril (Prinivil Tab*) 2.5 mg PO DAILY [facility] Last Admin: 05/24/18 09:20 Dose: 2.5 mg Metoprolol Tartrate (Lopressor Iv*) 5 mg IV Q6H PRN PRN Reason: BLOOD PRESSURE Metoprolol Tartrate (Lopressor Tab*) 25 mg PO BID [facility] Morphine Sulfate (Ms Contin(*)) 60 mg PO Q12HR [facility] Last Admin: 05/24/18 09:19 Dose: 60 mg Nitrofurantoin Macrocrystals (Macrodantin*) 100 mg PO 0800,1700 [facility] Last Admin: 05/24/18 09:21 Dose: 100 mg Ticagrelor (Brilinta*) 90 mg PO BID [facility] Last Admin: 05/24/18 09:19 Dose: 90 mg Vitamin B Complex/Vitamin E (B Complex-50*) 1 tab PO QPM [facility] Last Admin: 05/23/18 17:12 Dose: 1 tab Objective Vital Signs: Temp Pulse Resp BP Pulse Ox 96.3 F 62 16 153/94 96 05/24/18 07:56 05/24/18 08:15 05/24/18 09:01 05/24/18 09:01 05/24/18 08:15 Oxygen Devices in Use Now: None Appearance: nad, pleasant Ears/Nose/Mouth/Throat: Clear Oropharnyx, Mucous Membranes Moist Neck: NL Appearance and Movements; NL JVP, Trachea Midline Respiratory: Symmetrical Chest Expansion and Respiratory Effort, Clear to Auscultation Cardiovascular: RRR, No Edema, - - sternotomy healed, no significant edema Abdominal: NL Sounds; No Tenderness; No Distention Extremities: No Edema, No Clubbing, Cyanosis Skin: No Rash or Ulcers Neurological: Alert and Oriented x 3 Laboratory Results: 05/24/18 05:11 05/24/18 10:02 INR (Anticoag Therapy) 0.99 (0.77-1.02) 05/23/18 03:27 APTT 54.7 seconds (26.0-36.3) H 05/23/18 10:27 Total Bilirubin 0.40 mg/dL (0.2-1.0) 05/23/18 03:27 AST 20 U/L (13-39) 05/23/18 03:27 ALT 23 U/L (7-52) 05/23/18 03:27 Alkaline Phosphatase 64 U/L (34-104) 05/23/18 03:27 CK-MB (CK-2) 31.3 ng/mL (0.6-6.3) H 05/24/18 05:11 B-Natriuretic Peptide 15 pg/mL (-100) 05/23/18 03:27 Total Protein 7.4 g/dL (6.4-8.9) 05/23/18 03:27 Albumin 4.3 g/dL (3.2-5.2) 05/23/18 03:27 Globulin 3.1 g/dL (2-4) 05/23/18 03:27 Albumin/Globulin Ratio 1.4 (1-3) 05/23/18 03:27 05/23/18 05/23/18 05/23/18 03:27 07:53 17:19 Troponin I 0.01 0.56 H* 6.97 H* 05/23/18 05/24/18 22:33 05:11 Troponin I 7.43 H* 5.29 H* direct ldl 51 Diagnostic Imaging: cardiac catheterization 02/12/2018: NSTEMI, Dr. Vieyra RFA: LVEF 50% with inferolateral hypokinesis: multivessel CAD including 75% LM ct pe study this admission: no dissection or pe Assessment/Plan In summary, Nilam Tsai is a 67 year old woman admitted with an enzymatically small inferior wall NH due to SVG-PDA vein graft closure, LVEF 45% . Unable to intervene on being medically managed. Pain free no hemodynamic instability, arrhythmia, CHF or recurrent angina. - Continue aspirin, statin, brillinta, beta-sarika and AceI. give another 2.5 mg of lisinopril now, increase to 5 mg tomrorow for better BP control, can continue to uptitrate as needed - Can transfer to telemetry - Discussed with Dr. Vieyra and Dr. Soriano will be rounding on Friday. Thank you for allowing me to participate in the cardiovascular care of this patient. Please do not hesitate to contact me with questions or concerns.
[2018-05-24] MEDS: Isosorbide Mononitrate ER TAB* 30 MG PO SCH (13:08)
[2018-05-24] MEDS: Heparin VIAL(*) 5000 UNITS/ML VIAL (FIVE THOUSAND) SUBCUT SCH ×2 (13:08→21:54)
[2018-05-24 19:02] LABS: ABS Basophils 0 10^3/ul (0-0.2); ABS Eosinophils 0.2 10^3/ul (0-0.6); ABS Lymphocytes 1.9 10^3/ul (1.0-4.8); ABS Monocytes 0.5 10^3/ul (0-0.8); ABS Neutrophils 5.1 10^3/ul (1.5-7.7); ABS Nucleated RBC 0 10^3/ul; Hematocrit 36 % (35-47); Hemoglobin 11.9 g/dl (12.0-16.0); Mean Corpuscular HGB Conc 33 g/dl (31-36); Mean Corpuscular Hemoglobin 27 pg (27-31); Mean Corpuscular Volume 83 fL (80-97); Mean Platelet Volume 8.2 um3 (7.4-10.4); Nucleated Red Blood Cells % 0.1; Platelet Count 193 10^3/ul (150-450); Red Blood Count 4.38 10^6/ul (4.00-5.40); Red Cell Distribution Width 16 % (10.5-15); White Blood Count 7.7 10^3/ul (3.5-10.8)
[2018-05-24 19:25] LABS: INR 1.03 (0.77-1.02)
[2018-05-24] MEDS: Nitrofurantoin Macrocrystals* 100 MG CAP PO SCH (19:40)
[2018-05-24] MEDS: Atorvastatin* 80 MG TAB PO SCH (19:41)
[2018-05-24] MEDS: Calcium Carbonate CHEW TAB* 500 MG (TUMS) PO SCH (19:42)
[2018-05-24] MEDS: Vitamin B Complex TAB PO SCH (19:59)
--- NOTE | 2018-05-25 00:18 | CATH ---
CC: Dr. Rachel Soriano; Dr. Pk Schmid. CARDIAC CATHETERIZATION REPORT: DATE OF PROCEDURE: 05/23/18 INDICATION FOR PROCEDURE: The patient with an inferior wall myocardial infarction with history of known coronary artery disease, assess for presence of significant progression in coronary artery disease. PROCEDURES PERFORMED: Left heart catheterization, left ventriculography, coronary arteriography, vein graft arteriography to the right coronary artery, MICHEL graft arteriography to the LAD, FFR analysis of the proximal right coronary artery disease. The patient was interviewed and examined in the intensive care unit where the risks and benefits were explained. She understood them and wished to proceed with cardiac catheterization. PRE-CARDIAC CATHETERIZATION LABORATORY RESULTS: Hemoglobin and hematocrit of 13.1 and 39 with a platelet count of 210,000. BUN and creatinine were 20 and 0.8. Troponin was 0.56. CPK 88, MB 3. Sodium 136, potassium 3.9, chloride 99, bicarb 28. EQUIPMENT UTILIZED: 1. Diagnostic right femoral artery sheath: A 5-[place] 11 cm sheath. 2. Diagnostic coronary catheters: An FL4 and an FR4 curve 5-[place] catheters. 3. Vein graft catheter: A 5-[place] multipurpose 1 curve catheter. 4. MICHEL arteriography catheter: A 5-[place] IM catheter. 5. Left heart catheterization catheter: A 5-[place] angled pigtail catheter. 6. Guide catheter for FFR assessment: A 6.5-[place] Merit Prelude sheath. 7. The guide catheter: A 6-[place] ART4 curve guide catheter. 8. The FFR wire: A PressureWire X. 9. Closure device was a 6/7 [place] Mynx closure device. MEDICATIONS: Given during the procedure: 1. The patient was on a nitroglycerin drip at 10 mcg/minute. 2. The patient was on a heparin drip at 800 units an hour and received an additional 3000 units of heparin prior to the fractional flow reserve analysis. 3. The patient received 1 mg of Versed. DESCRIPTION OF PROCEDURE: The patient was interviewed and examined on the floor of the hospital with the risks and benefits and she understood them and wished to proceed. She was brought to the cardiovascular laboratory where a formal time-out was performed. She was prepped and draped in sterile fashion. Right groin area was anesthetized with 1% lidocaine and the right femoral artery was cannulated with an anterior stick and the introducer was placed. Coronary arteriography was performed. Vein graft arteriography to the right coronary artery and MICHEL graft arteriography to the MICHEL graft was performed. Of note, the vein graft to the obtuse marginal branch was not performed. Following that, left heart catheterization was performed utilizing an angled pigtail catheter advanced to the ascending aorta. The catheter was then passed across the aortic valve into the left ventricle where left ventricular pressure was recorded. Left ventriculography was performed utilizing a total of 24 cc of Omnipaque dye at a rate of 12 cc/second. The catheter was pulled back across the aortic valve to recheck gradient. Following this, decision was made to perform fractional flow reserve analysis of the proximal right coronary artery. The 5-[place] sheath was exchanged for a 6- [place] sheath. The patient received additional heparin therapy and guiding catheter views were obtained. Following this, the fractional flow reserve wire was advanced. The patient received a bolus of adenosine with 72 mcg. FFR analysis was performed. Following this, the wire and the guiding catheter were removed. An injection was made into right femoral sheath to assess the eligibility to utilize the closure device. It was found to be acceptable for this and as such a 6/7 [place] Mynx closure device was deployed with good hemostasis. The total contrast used was 150 cc of Omnipaque dye. The radiation exposure included 13.1 minutes of fluoro time. The air kerma radiation was 1600 milligray. The DAP radiation was 12,682 microgray per meter squared. RESULTS:: HEMODYNAMIC DATA: Left heart catheterization: Central aortic pressure was recorded at 163/79 with a mean of 112, left ventricular pressure 161 over left ventricular end- diastolic pressure of 17. LEFT VENTRICULOGRAPHY: Performed in the BRUNO projection: There was focal severe hypokinesis of the distal inferior wall with preservation of the proximal inferior wall. There was mild hypokinesis of the anterior wall and anterior apical region. The overall ejection fraction was estimated at 40% to 45%. CORONARY ARTERIOGRAPHY: A. Left coronary artery: 1. Left main: The distal left main had a critical narrowing of 80%. 2. Left anterior descending artery: The ostium of left anterior descending artery had a very eccentric appearing 75% lesion that appeared in its reverse view. The continuation of the left anterior descending artery had diffuse disease with the caliber of the vessels becoming smaller in nature. After the small caliber first septal machine clipper, there was an area of 40% stenosis leading to a diagonal branch. The continuation of the left anterior descending artery showed competitive flow in its mid segment. 3. Circumflex artery: A nondominant vessel supplying a very high, very thin first obtuse marginal branch. Of note, there was haze in the proximal portion with an area that looked to be at least 55% to 60%. Following this, there was a critical stenosis of 80%. There was competitive flow seen in the superior branch of bifurcating obtuse marginal branch, which was thin in nature. The lower branch was getting flow through the [place] vessel. The ostium of the superior branch had a narrowing of 45% to 50%. The lower branch had a caliber that was clearly less than 1.5 mm and had a 45% to 50% mid lesion. Clearly, this is a vessel that could not be intervened on interventionally. B. Right coronary artery: A dominant vessel supplying multiple acute marginal branches followed by a low-lying acute marginal branch followed by a PDA and a thin first posterior left ventricular branch and a moderate-size last posterior left ventricular branch. There was diffuse disease seen with an ostial narrowing of 40%. The proximal portion of the left anterior descending artery had mild calcium in it with narrowing as much as 65% to 70%. The first acute marginal branch was a thin vessel with 65% to 70% proximal narrowing. This was not an interventional vessel. The mid segment prior to turning on to the inferior surface had diffuse disease leading to the lower portion of the right coronary artery, which became more normal in caliber before it turned on to the inferior surface. The continuation of the right coronary artery showed a PDA vessel that had mild slow flow in its mid portion and was found to be totally occluded in its mid portion. In reviewing the old films, this was a much longer thin vessel that extended toward the distal inferior wall and most likely was the cause of the acute myocardial infarction. This was most likely the prior bypassed vessel. The caliber of it is clearly in the range of 1.5 to 1.7 mm. VEIN GRAFT ARTERIOGRAPHY TO THE RIGHT CORONARY ARTERY PDA: Totally occluded in its mid portion. MICHEL GRAFT ARTERIOGRAPHY TO THE LAD: Of note, the MICHEL graft appeared to have CAMILA- 3 flow in it. There appeared to be a kink area in its mid portion. It is difficult to assess the actual degree of obstruction as in several views, it appears to be more significant than others. Blood flow proceeds to the LAD with competitive flow seen supplying a very thin caliber distal vessel that appears to be less than 1.7 mm. There does not appear to be good retrograde flow up to the diagonal branch due to competitive flow. FRACTIONAL FLOW RESERVE ANALYSIS OF PROXIMAL TO MID RIGHT CORONARY ARTERY: Fractional flow reserve of the right coronary artery proximal disease revealed a value of 0.92 suggesting a non-hemodynamically significant segment in the proximal area. OVERALL ASSESSMENT: Severe multivessel disease as described above with a totally occluded vein graft to the mid right posterior descending artery, which was small in caliber in general. Most likely, the vein to artery mismatch size and the presence of a patent right coronary artery down to the posterior descending artery led to competitive flow and perhaps stagnant flow within the vein graft. Of note, unfortunately, the obtuse marginal graft was not visualized; however, competitive flow seen within the superior branch of this vessel suggested it is patent. The left internal mammary artery graft is patent as well. Overall left ventricular function is mild to moderately reduced at 40% to 45%. RECOMMENDATION: Aggressive medical management will be pursued with dual antiplatelet therapy. High-dose statin therapy and beta-sarika therapy will be instituted as well. This information was shared with the primary social insurance specialist taking care of her during the hospital, Dr. Tony Whyte and will be also shared with her primary social insurance specialist, Dr. Rachel Soriano, who will be taking over the care of her in the beginning of the week. [id number]/[facility] #: [id number] SYD
[2018-05-25] MEDS: Heparin VIAL(*) 5000 UNITS/ML VIAL (FIVE THOUSAND) SUBCUT SCH ×3 (05:47→21:10)
[2018-05-25] MEDS: Levothyroxine TAB* 125 MCG TAB PO SCH (05:48)
[2018-05-25] MEDS: Aspirin EC TAB* 81 MG TAB.EC PO SCH (07:58)
[2018-05-25] MEDS: Cholecalciferol TAB* 1000 UNITS PO SCH ×2 (07:58→20:42)
[2018-05-25] MEDS: Isosorbide Mononitrate ER TAB* 30 MG PO SCH (07:58)
[2018-05-25] MEDS: Metoprolol Tartrate TAB* 25 MG PO SCH ×2 (07:58→20:41)
[2018-05-25] MEDS: buPROPion TAB* 75 MG PO SCH ×3 (07:58→17:24)
[2018-05-25] MEDS: Acetaminophen TAB* 325 MG PO PRN (07:58)
[2018-05-25] MEDS: Morphine TAB Extended Release (*) 30 MG TAB.ER PO SCH ×2 (07:58→20:42)
[2018-05-25] MEDS: Lisinopril TAB* 5 MG PO SCH (07:58)
[2018-05-25] MEDS: Desipramine TAB* 50 MG PO SCH (07:59)
[2018-05-25] MEDS: Nitrofurantoin Macrocrystals* 100 MG CAP PO SCH ×2 (07:59→17:27)
[2018-05-25] MEDS: Ticagrelor* 90 MG TAB PO SCH ×2 (07:59→20:42)
[2018-05-25 08:03] LABS: EGFR Non-African American 81.3 (>60)
--- NOTE | 2018-05-25 13:37 | PN ---
Subjective Date of Service: 05/25/18 Interval History: Pt feels well. Denies CP/SOB Objective Active Medications: Acetaminophen (Tylenol Tab*) 650 mg PO Q4H PRN PRN Reason: PAIN Last Admin: 05/25/18 07:58 Dose: 650 mg Hydrocodone Bitart/Acetaminophen ([place] 5-325 Tab*) 1 tab PO Q6H PRN PRN Reason: PAIN Last Admin: 05/23/18 15:43 Dose: 1 tab Aspirin (Aspirin Ec Tab*) 81 mg PO DAILY [facility] Last Admin: 05/25/18 07:58 Dose: 81 mg Atorvastatin Calcium (Lipitor*) 80 mg PO 2100 [facility] Last Admin: 05/24/18 19:41 Dose: 80 mg Bupropion HCl (Wellbutrin Tab*) 75 mg PO TID WITH MEALS [facility] Last Admin: 05/25/18 11:52 Dose: 75 mg Calcium Carbonate (Tums*) 1,000 mg PO QPM [facility] Last Admin: 05/24/18 19:42 Dose: 1,000 mg Cholecalciferol (Vitamin D Tab*) 2,000 units PO BID [facility] Last Admin: 05/25/18 07:58 Dose: 2,000 units Desipramine HCl (Norpramin Tab*) 150 mg PO DAILY [facility] Last Admin: 05/25/18 07:59 Dose: 150 mg Heparin Sodium (Porcine) (Heparin Vial(*)) 5,000 units SUBCUT Q8HR [facility] Last Admin: 05/25/18 05:47 Dose: 5,000 units Levothyroxine Sodium (Synthroid Tab*) 125 mcg PO 0600 [facility] Last Admin: 05/25/18 05:48 Dose: 125 mcg Lisinopril (Prinivil Tab*) 5 mg PO DAILY [facility] Last Admin: 05/25/18 07:58 Dose: 5 mg Metoprolol Tartrate (Lopressor Iv*) 5 mg IV Q6H PRN PRN Reason: BLOOD PRESSURE Last Admin: 05/24/18 11:55 Dose: 5 mg Metoprolol Tartrate (Lopressor Tab*) 25 mg PO BID [facility] Last Admin: 05/25/18 07:58 Dose: 25 mg Morphine Sulfate (Ms Contin(*)) 60 mg PO Q12HR [facility] Last Admin: 05/25/18 07:58 Dose: 60 mg Nitrofurantoin Macrocrystals (Macrodantin*) 100 mg PO 0800,1700 [facility] Last Admin: 05/25/18 07:59 Dose: 100 mg Non-Formulary Medication (Leflunomide [Leflunomide]) 20 mg PO QAM [facility] Ticagrelor (Brilinta*) 90 mg PO BID [facility] Last Admin: 05/25/18 07:59 Dose: 90 mg Vitamin B Complex/Vitamin E (B Complex-50*) 1 tab PO QPM [facility] Last Admin: 05/24/18 19:59 Dose: 1 tab Vital Signs - 8 hr 05/25/18 05/25/18 05/25/18 07:32 07:58 08:00 Temperature 97.4 F Pulse Rate 70 Respiratory 16 16 16 Rate Blood Pressure 171/75 (mmHg) O2 Sat by Pulse 96 Oximetry 05/25/18 05/25/18 05/25/18 09:44 10:00 11:37 Temperature 97.9 F Pulse Rate 63 66 Respiratory 16 16 Rate Blood Pressure 145/73 138/79 (mmHg) O2 Sat by Pulse 96 Oximetry Oxygen Devices in Use Now: None Appearance: 67 yo F in nAD, aAOx3 Eyes: No Scleral Icterus, PERRLA Ears/Nose/Mouth/Throat: NL Teeth, Lips, Gums, Mucous Membranes Moist Neck: NL Appearance and Movements; NL JVP, Trachea Midline Respiratory: Symmetrical Chest Expansion and Respiratory Effort, Clear to Auscultation Cardiovascular: NL Sounds; No Murmurs; No JVD, RRR Abdominal: NL Sounds; No Tenderness; No Distention Lymphatic: No Cervical Adenopathy Extremities: No Edema, No Clubbing, Cyanosis Skin: No Rash or Ulcers, No Nodules or Sclerosis Neurological: Alert and Oriented x 3, NL Muscle Strength and Tone Result Diagrams: 05/24/18 10:02 05/25/18 07:07 Microbiology and Other Data: Microbiology 05/23/18 07:29 Nasal Screen MRSA (PCR) - Final Nasal Mrsa Not Detected Assess/Plan/Problems-Billing Assessment: 67 yo f with h/o RA(on bilogic agents), CAD(CABG x [address] [place] [address] Florence in 02/2018) presented with CP - Patient Problems (1) Chest pain Comment: Mild ST elevation in lead III Pt is CP free troponin peaked at 7 on 05/23/18. Dx with NSTEMI. s/p cath by Dr. Vieyra-the culprit vessel too small to stent. cont med tx. cont ASA/Brilinta Appreciate Dr. Whyte's consult (2) Arthritis, rheumatoid Comment: Stable Leflunomide will be restarted today Pt's diffuse CAD is probably due to RA (3) UTI (urinary tract infection) Comment: dx made as outpatient, cont macrodantin UA showed no bacteria (4) HTN (hypertension) Comment: Will cont lopressor BID, and Lisinopril (5) Hyperglycemia Comment: mild, HbA1C 6.0 (6) DVT prophylaxis Comment: HSQ Status and Disposition: inpatient, d/c planned for tomorrow
[2018-05-25] MEDS ORDERED: CMC: Leflunomide (NF) 10 MG TAB PO SCH (13:45)
[2018-05-25] MEDS: Vitamin B Complex TAB PO SCH (17:24)
[2018-05-25] MEDS: Calcium Carbonate CHEW TAB* 500 MG (TUMS) PO SCH (17:24)
[2018-05-25 18:51] LABS: Urine Appearance Clear; Urine Blood Negative (Negative); Urine Color Yellow; Urine Ketones Negative (Negative); Urine Protein Negative (Negative); Urine Red Blood Cell Absent (Absent); Urine Specific Gravity 1.004 (1.010-1.030); Urine Urobilinogen Negative (Negative); Urine White Blood Cell Trace(0-5/hpf) (Absent)
[2018-05-25] MEDS: Atorvastatin* 80 MG TAB PO SCH (20:41)
[2018-05-26] MEDS: Levothyroxine TAB* 125 MCG TAB PO SCH (05:29)
[2018-05-26] MEDS: Heparin VIAL(*) 5000 UNITS/ML VIAL (FIVE THOUSAND) SUBCUT SCH (05:29)
[2018-05-26] MEDS: Morphine TAB Extended Release (*) 30 MG TAB.ER PO SCH (08:18)
[2018-05-26] MEDS: Desipramine TAB* 50 MG PO SCH (08:19)
[2018-05-26] MEDS: Aspirin EC TAB* 81 MG TAB.EC PO SCH (08:19)
[2018-05-26] MEDS: Ticagrelor* 90 MG TAB PO SCH (08:19)
[2018-05-26] MEDS: Lisinopril TAB* 5 MG PO SCH (08:19)
[2018-05-26] MEDS: buPROPion TAB* 75 MG PO SCH ×2 (08:19→12:05)
[2018-05-26] MEDS: Cholecalciferol TAB* 1000 UNITS PO SCH (08:19)
[2018-05-26] MEDS: Metoprolol Tartrate TAB* 25 MG PO SCH (08:19)
[2018-05-26] MEDS ORDERED: LEFLUNOMIDE 20 MG PO SCH (09:00)
[2018-05-26] MEDS ORDERED: Nitroglycerin TAB 0.4 MG* 0.4 MG TAB SL PRN (10:40)
[2018-05-26 12:13] VITALS: BP 129/78
--- NOTE | 2018-05-27 02:08 | DS ---
CC: Dr. Soriano; Dr. Vieyra; Dr. Whyte, Cardiology; Dr. Ash; Francesco Champion NP; Dr. Schmid * DISCHARGE SUMMARY: DATE OF ADMISSION: 05/23/18 DATE OF DISCHARGE: 05/26/18 PRIMARY CARE PROVIDER: Dr. Schmid. DISCHARGE DIAGNOSES: Acute coronary artery syndrome and acute non-ST elevation myocardial infarction, status post cardiac catheterization performed by Dr. Vieyra on 05/23/18. SECONDARY DIAGNOSES: 1. History of coronary artery disease, status post coronary artery disease bypass performed by Dr. Ash in February 2018. 2. History of rheumatoid arthritis. 3. Hypothyroidism. 4. History of chronic pain. 5. Status post hysterectomy. MEDICATIONS AT DISCHARGE: Include: 1. Acyclovir 400 mg p.o. 3 times a day p.r.n. 2. Vitamin C 500 mg b.i.d. 3. Aspirin 81 mg b.i.d. a.c. 4. Calcium carbonate 1000 mg daily. 5. Vitamin D 2000 units daily. 6. Desipramine 150 mg daily. 7. Simponi 50 mg subcutaneously monthly. 8. Vicodin 5/325 mg 1 to 2 tablets every 6 hours p.r.n. 9. Leflunomide 20 mg daily. 10. Synthroid 125 mcg daily. 11. Clonidine 10 mg daily. 12. Morphine extended release 60 mg twice a day. 13. Vitamin B complex 1 capsule daily. 14. Wellbutrin XL 225 mg daily. 15. Lipitor 80 mg daily. 16. Prinivil 10 mg daily. 17. Metoprolol tartrate 25 mg b.i.d. 18. Brilinta 90 mg twice a day. LABORATORY DATA AND STUDIES PERFORMED DURING HOSPITAL STAY: Troponin peaked at 7.4 on 05/23/18. On 05/25/18, sodium of 138, potassium 4.0, chloride 105, carbon dioxide 27, BUN 10, creatinine of 0.72. White blood cell count of 7.7, hemoglobin of 11.9, hematocrit of 36, and platelets of 193. D-dimer at admission was 266. Urinalysis on 05/25/18 showed yellow, clear urine with a specific gravity of 1.004, +1 esterase, trace white blood cells, absent red blood cells, absent bacteria, absent nitrites, and absent blood. CT angiogram of the chest obtained on 05/23/18. Impression: "Negative for pulmonary embolism. Negative for pulmonary edema. Minimal postsurgical edema, all granulation present surrounding the median sternotomy. Without evidence of soft tissue, plain abscess collection. Cholelithiasis seen." Cardiac catheterization obtained on 05/23/[address] Vieyra. Impression: "Overall Assessment: Severe multivessel disease as described above with totally occluded vein graft to the mid right posterior descending artery, which was small in caliber in general. Most likely, the vein to artery mismatch size and the presence of patent right coronary artery down to the posterior descending artery led to a competitive flow and perhaps stagnant flow within the vein graft. Of note, unfortunately the obtuse marginal graft was not visualized; however, competitive flow seen within the superior branch of this vessel suggested it is patent. The left internal mammary artery graft is patent as well. Overall, ventricular function is mild to moderately reduced at 40% to 45%. RECOMMENDATIONS: Aggressive medical management will be pursued with dual antiplatelet therapy. High-dose statin therapy and beta-sarika therapy will be instituted as well. This information was shared with the primary rivet hammer machine operator taking care of the patient during the hospital, Dr. Tony Whyte. It will be also shared with her primary rivet hammer machine operator, Dr. Soriano, who will be taking over the patient's care in the beginning of the week." HOSPITALIZATION COURSE: Nilam Tsai is a 67-year-old female who has a history of rheumatoid arthritis and coronary artery disease, status post bypass earlier this year, who presented complaining of chest pain that lasted approximately 3 hours. By the time she was seen by the rivet hammer machine operator, the chest pain was resolved. The patient had subtle inferior wall ST elevations, but once again by that time she was chest pain-free. Dr. Vieyra performed cardiac catheterization on 05/23/18 and noted that one of the grafts was occluded as mentioned above. Unfortunately, the artery was so small, it was not amenable for intervention. The patient was placed on dual antiplatelet therapy. Her lisinopril was started. Beta-sarika was started and her atorvastatin was placed at a high dose. During her hospital stay, the patient felt basically "normal" without further evidence of chest pain or shortness of breath. Once again, her medications for her blood pressure were titrated up and Dr. Soriano saw the patient at the end of patient's hospital stay. Dr. Soriano will follow up with the patient next week. The patient has a history of recent problems with UTIs and was placed on Macrodantin as outpatient. From reviewing of medical records, the patient's urine cultures on 05/23/18 were positive for pneumoniae, 25,000 to 50,000 colonies that were intermediate and sensitivity to nitrofurantoin on which the patient was on. Despite that, the patient's symptoms resolved by the time of discharge. Repeat urinalysis were negative for infection. At this point, the patient's Macrodantin is going to be held and no other antibiotic is going to be instituted. The patient apparently has had problems with multiple UTIs and she is recommended to follow up with her urologist. PHYSICAL EXAM AT THE TIME OF DISCHARGE: Blood pressure was 151/87, heart rate of 73 and regular, respiratory rate 17, oxygen saturation 100% on room air, and temperature 97.7. General: The patient is a very pleasant 67-year-old female, who is in no acute distress. Alert, awake, and oriented x3. HEENT: Head normocephalic and atraumatic. Eyes: Pupils are equal, round, and reactive to light and accommodation. Oropharynx clear. Mucosa moist. Neck: Supple. No JVD, no bruits bilaterally. Cardiovascular: Regular rate and rhythm. No murmur. Respiratory: Clear to auscultation bilaterally. Abdomen: Soft and nontender. Bowel sounds are present in all 4 quadrants. Extremities: There is no edema. Pulses +2 bilaterally. There is no clubbing or cyanosis. Please note that this is a short summary of the patient's hospitalization. Please refer to further medical records for details. TIME SPENT: Approximately 45 minutes were spent on the patient's discharge. [id number]/[facility] #: [id number] [facility] CHAFFEE HOSPITALFelicia
[2018-05-27] MEDS ORDERED: Lisinopril TAB* 10 MG PO SCH (09:00)
== END 2018-05-26 12:45 | disposition home or self-care (01) | DRG 281 ==
LOC: ED 03:18 → ICU 04:51 → OBSVTOIN 09:27 → MEDTELE 05-24 15:36
PROVIDERS: ADMIT Hospitalist; ATTEND Internal Medicine
PROC: B2151ZZ Fluoroscopy of Left Heart using Low Osmolar Contrast (ICD-10-PCS; 2018-05-23)
PROC: B2111ZZ Fluoroscopy of Multiple Coronary Arteries using Low Osmolar Contrast (ICD-10-PCS; 2018-05-23)
PROC: B21F1ZZ Fluoroscopy of Other Bypass Graft using Low Osmolar Contrast (ICD-10-PCS; 2018-05-23)
PROC: B2181ZZ Fluoroscopy of Left Internal Mammary Bypass Graft using Low Osmolar Contrast (ICD-10-PCS; 2018-05-23)
PROC: 4A033BC Measurement of Arterial Pressure, Coronary, Percutaneous Approach (ICD-10-PCS; 2018-05-23)
PROC: 4A023N7 Measurement of Cardiac Sampling and Pressure, Left Heart, Percutaneous Approach (ICD-10-PCS; principal; 2018-05-23 12:30)
DX: I21.4 Non-ST elevation (NSTEMI) myocardial infarction (principal); N39.0 Urinary tract infection, site not specified; I25.810 Atherosclerosis of coronary artery bypass graft(s) without angina pectoris; E03.9 Hypothyroidism, unspecified; K21.9 Gastro-esophageal reflux disease without esophagitis; M19.90 Unspecified osteoarthritis, unspecified site; F32.9 Major depressive disorder, single episode, unspecified; G89.29 Other chronic pain; R73.9 Hyperglycemia, unspecified; B96.1 Klebsiella pneumoniae [K. pneumoniae] as the cause of diseases classified elsewhere; K80.20 Calculus of gallbladder without cholecystitis without obstruction; M06.9 Rheumatoid arthritis, unspecified; Z87.440 Personal history of urinary (tract) infections; Z87.11 Personal history of peptic ulcer disease; Z95.1 Presence of aortocoronary bypass graft; Z72.89 Other problems related to lifestyle; Z82.49 Family history of ischemic heart disease and other diseases of the circulatory system; I25.2 Old myocardial infarction; Z88.1 Allergy status to other antibiotic agents; Z88.0 Allergy status to penicillin; Z88.2 Allergy status to sulfonamides; Z79.02 Long term (current) use of antithrombotics/antiplatelets; Z79.82 Long term (current) use of aspirin; Z91.018 Allergy to other foods; Z98.42 Cataract extraction status, left eye; Z98.41 Cataract extraction status, right eye; Z90.710 Acquired absence of both cervix and uterus; Z83.3 Family history of diabetes mellitus; Z83.6 Family history of other diseases of the respiratory system; Z82.5 Family history of asthma and other chronic lower respiratory diseases
CPT/HCPCS: 36415; 71045; 71275; 80048; 80053; 81003; 81015; 82550; 82553; 82565; 83036; 83721; 83874; 83880; 84484; 84520; 85025; 85347; 85379; 85610; 85730; 86850; 86900; 86901; 87077; 87086; 87186; 87641; 93005; 93459; 99156; 99157; 99285; A9270-GY; C1760; C1769; C1887; G0378; J0153; J1644; J2250; J2270; J3010; J3490; Q9967

== ENCOUNTER 2021-10-27 21:54 | Inpatient (IN) ==
[2021-10-27 22:52] LABS: ABS Eosinophils 0.3 10^3/ul (0-0.6); ABS Lymphocytes 0.9 10^3/ul (1.0-4.8); ABS Monocytes 0.8 10^3/ul (0-0.8); ABS Neutrophils 7.7 10^3/ul (1.5-7.7); Eosinophil % 3.5 %; Hematocrit 36 % (35-47); Lymphocyte % 9.6 %; Mean Corpuscular HGB Conc 34 g/dL (31-36); Mean Corpuscular Hemoglobin 29 pg (27-31); Mean Corpuscular Volume 86 fL (80-97); Mean Platelet Volume 7.4 fL (7.4-10.4); Platelet Count 219 10^3/uL (150-450); Red Blood Count 4.13 10^6 /uL (3.70-4.87); Red Cell Distribution Width 14 % (10-15); White Blood Count 9.8 10^3/uL (3.5-10.8)
[2021-10-27 23:07] LABS: Albumin 3.1 g/dL (3.2-5.2); Potassium 2.9 mmol/L (3.5-5.0); Total Bilirubin 0.7 mg/dL (0.2-1.0); Total Protein 6.1 g/dL (6.4-8.9); eGFR CKD-EPI 96.3 (>60)
[2021-10-27 23:09] LABS: Troponin I 0.02 ng/mL (<0.03)
[2021-10-27] MEDS ORDERED: Furosemide 40 mg/4 ml IV VIAL IV SLOW PU ONE (23:14)
[2021-10-27] MEDS ORDERED: Potassium Chlor 20 meq TAB.ER PO ONE (23:23)
[2021-10-27] MEDS ORDERED: KCL 20 MEQ/100 ML IVPREMIX 20 MEQ/100 ML BAG IV ONE (23:24)
[2021-10-27] MEDS ORDERED: Morphine ER 30 mg TAB ** extended release PO SCH (23:45)
[2021-10-27] MEDS ORDERED: Al Hydrox/Mg Hydrox/Simet LIQ 30 ML UDC PO PRN (23:49)
[2021-10-27] MEDS ORDERED: hydrALAZINE 20 mg/ml 1 ML Vial IV IV SLOW PU PRN (23:58)
[2021-10-28 00:27] LABS: C Reactive Protein 161.84 mg/L (<8.01)
[2021-10-28] MEDS ORDERED: Iohexol 350 (CONTRAST) 500 ML MDV IV ONE (00:56)
[2021-10-28] MEDS: Enoxaparin 40 MG/0.4 ML SYR SUBCUT SCH ×2 (01:16→19:48)
[2021-10-28] MEDS ORDERED: Iodixanol (CONTRAST) 320 MG/ML 100 ML SDV IV ONE (01:38)
[2021-10-28 01:39] LABS: Urine Appearance Cloudy; Urine Bilirubin Negative (Negative); Urine Blood Negative (Negative); Urine Color Yellow; Urine Glucose Negative (Negative); Urine Ketones Negative (Negative); Urine Nitrite Negative (Negative); Urine Protein Negative (Negative); Urine Specific Gravity 1.008 (1.002-1.030); Urine Urobilinogen Negative (Negative)
[2021-10-28] MEDS: cefTRIAXone 1 gm/50 mL NS BAG 1 GM/50 ML BAG IVPB SCH (03:56)
[2021-10-28 07:22] LABS: Calcium 8.3 mg/dL (8.6-10.3); Potassium 3.8 mmol/L (3.5-5.0)
[2021-10-28 07:36] LABS: Magnesium 1.7 mg/dL (1.9-2.7)
[2021-10-28] MEDS ORDERED: Potassium Chlor 20 meq TAB.ER PO ONE (09:10)
[2021-10-28] MEDS: Desipramine 50 mg TAB PO SCH (09:48)
[2021-10-28] MEDS: Morphine ER 30 mg TAB ** extended release PO SCH ×2 (09:51→19:48)
[2021-10-28] MEDS ORDERED: Magnesium Sulfate IV 3 GM in NS 0.9% 100 ml BAG 100 ML IVPB ONE (10:00)
[2021-10-28 10:20] LABS: Ferritin 235.1 ng/mL (11-307)
[2021-10-29] MEDS: cefTRIAXone 1 gm/50 mL NS BAG 1 GM/50 ML BAG IVPB SCH (01:31)
[2021-10-29] MEDS ORDERED: Furosemide 40 mg/4 ml IV VIAL IV ONE (03:56)
[2021-10-29] MEDS ORDERED: methylPREDNISolone SOD 40 mg/ml 1 ml VIAL IV ONE (04:32)
[2021-10-29 04:45] LABS: PCO2 Arterial 35 mmHg (35-45); PO2 Arterial 64 mmHg (80-100)
[2021-10-29] MEDS: methylPREDNISolone SOD 40 mg/ml 1 ml VIAL IV SCH ×2 (04:48→19:28)
[2021-10-29 07:19] LABS: Calcium 8.1 mg/dL (8.6-10.3); Magnesium 1.9 mg/dL (1.9-2.7); Potassium 3.5 mmol/L (3.5-5.0); eGFR CKD-EPI 93.9 (>60)
[2021-10-29] MEDS ORDERED: Magnesium Sulfate 2 gm BAG 2 GM/50 ML BAG IVPB ONE (07:49)
[2021-10-29] MEDS ORDERED: Potassium Chlor 20 meq TAB.ER PO ONE (07:50)
[2021-10-29] MEDS: Morphine ER 30 mg TAB ** extended release PO SCH ×2 (07:57→20:36)
[2021-10-29] MEDS: Desipramine 50 mg TAB PO SCH (07:58)
[2021-10-29] MEDS: methylPREDNISolone 125 mg 2 ML VIAL IV SCH (16:07)
[2021-10-29] MEDS: Enoxaparin 40 MG/0.4 ML SYR SUBCUT SCH (20:36)
[2021-10-30] MEDS: cefTRIAXone 1 gm/50 mL NS BAG 1 GM/50 ML BAG IVPB SCH
[2021-10-30 04:34] LABS: ABS Lymphocytes 0.6 10^3/ul (1.0-4.8); ABS Monocytes 0.9 10^3/ul (0-0.8); Hematocrit 33 % (35-47); Hemoglobin 11.1 g/dL (12.0-16.0); Lymphocyte % 5.1 %; Mean Corpuscular HGB Conc 34 g/dL (31-36); Mean Corpuscular Hemoglobin 29 pg (27-31); Mean Corpuscular Volume 86 fL (80-97); Mean Platelet Volume 7.2 fL (7.4-10.4); Platelet Count 246 10^3/uL (150-450); Red Blood Count 3.84 10^6 /uL (3.70-4.87); Red Cell Distribution Width 14 % (10-15); White Blood Count 12.5 10^3/uL (3.5-10.8)
[2021-10-30 04:49] LABS: Calcium 8.2 mg/dL (8.6-10.3); Magnesium 2.5 mg/dL (1.9-2.7); Phosphorus 2.9 mg/dL (2.5-5.0); Potassium 3.5 mmol/L (3.5-5.0); eGFR CKD-EPI 100.5 (>60)
[2021-10-30] MEDS: methylPREDNISolone 125 mg 2 ML VIAL IV SCH ×4 (05:41→17:42)
[2021-10-30] MEDS ORDERED: Potassium Chlor 20 meq TAB.ER PO ONE (08:30)
[2021-10-30] MEDS: Desipramine 50 mg TAB PO SCH (09:00)
[2021-10-30] MEDS: Morphine ER 30 mg TAB ** extended release PO SCH ×2 (09:00→20:19)
[2021-10-30] MEDS: Cholestyramine Resin 4 GM POWDER PO SCH (18:03)
[2021-10-30] MEDS: Enoxaparin 40 MG/0.4 ML SYR SUBCUT SCH (20:18)
[2021-10-31] MEDS: methylPREDNISolone 125 mg 2 ML VIAL IV SCH ×4 (00:06→18:03)
[2021-10-31] MEDS: cefTRIAXone 1 gm/50 mL NS BAG 1 GM/50 ML BAG IVPB SCH (00:06)
[2021-10-31 08:04] LABS: ABS Lymphocytes 0.9 10^3/ul (1.0-4.8); ABS Monocytes 0.8 10^3/ul (0-0.8); ABS Neutrophils 11.1 10^3/ul (1.5-7.7); Hematocrit 33 % (35-47); Hemoglobin 11.1 g/dL (12.0-16.0); Lymphocyte % 6.9 %; Mean Corpuscular HGB Conc 34 g/dL (31-36); Mean Corpuscular Hemoglobin 29 pg (27-31); Mean Corpuscular Volume 86 fL (80-97); Mean Platelet Volume 7.1 fL (7.4-10.4); Platelet Count 294 10^3/uL (150-450); Red Blood Count 3.86 10^6 /uL (3.70-4.87); Red Cell Distribution Width 14 % (10-15); White Blood Count 12.8 10^3/uL (3.5-10.8)
[2021-10-31 08:22] LABS: Calcium 8.5 mg/dL (8.6-10.3); Magnesium 2.4 mg/dL (1.9-2.7); Phosphorus 3.2 mg/dL (2.5-5.0); Potassium 4.1 mmol/L (3.5-5.0); eGFR CKD-EPI 94.2 (>60)
[2021-10-31] MEDS ORDERED: Sodium Chloride(INHALANT) 3% 4 ML NEB.SOLN INH PRN (08:23)
[2021-10-31] MEDS: Desipramine 50 mg TAB PO SCH (08:50)
[2021-10-31] MEDS: Cholestyramine Resin 4 GM POWDER PO SCH ×3 (08:50→20:05)
[2021-10-31] MEDS: Morphine ER 30 mg TAB ** extended release PO SCH ×2 (08:51→20:05)
[2021-10-31 10:07] LABS: Anti SSA/RO Antibody <0.2 U; JO-1 Antibody <0.2 U; SS-B/La Antibody <0.2 U
[2021-10-31 10:39] LABS: Complement C3 144 mg/dL (75 - 175)
[2021-10-31 13:44] LABS: Adenovirus Undetected (Undetected); Bordetella parapertussis Undetected (Undetected); Bordetella pertussis Undetected (Undetected); Chlamydophila pneumoniae Undetected (Undetected); Coronavirus 229E Undetected (Undetected); Coronavirus HKU1 Undetected (Undetected); Coronavirus NL63 Undetected (Undetected); Coronavirus OC43 Undetected (Undetected); Human Metapneumovirus Undetected (Undetected); Human Rhinovirus/Enterovirus Undetected (Undetected); Influenza A Undetected (Undetected); Influenza B Undetected (Undetected); Mycoplasmoides pneumoniae Undetected (Undetected); Parainfluenza Virus 1 Undetected (Undetected); Parainfluenza Virus 2 Undetected (Undetected); Parainfluenza Virus 3 Undetected (Undetected); Parainfluenza Virus 4 Undetected (Undetected); Respiratory Syncytial Virus Undetected (Undetected); Specimen Source NASOPHARYNGEAL SWAB
[2021-10-31 16:45] LABS: Cyclic Citrullinated Pept IgG <15.6 U
[2021-10-31] MEDS: Enoxaparin 40 MG/0.4 ML SYR SUBCUT SCH (20:04)
[2021-11-01] MEDS: cefTRIAXone 1 gm/50 mL NS BAG 1 GM/50 ML BAG IVPB SCH (00:11)
[2021-11-01] MEDS: methylPREDNISolone 125 mg 2 ML VIAL IV SCH ×4 (00:11→18:13)
[2021-11-01] MEDS: Desipramine 50 mg TAB PO SCH (07:51)
[2021-11-01] MEDS: Morphine ER 30 mg TAB ** extended release PO SCH ×2 (07:52→20:56)
[2021-11-01] MEDS: Cholestyramine Resin 4 GM POWDER PO SCH ×3 (07:52→20:55)
[2021-11-01] MEDS ORDERED: Furosemide 20 mg/2 ml IV VIAL IV ONE (08:59)
[2021-11-01] MEDS ORDERED: Benzocaine/Butamben/Tetracain (CETACAINE - SINGLE USE) 5 gm TOPICAL ONE ×2 (14:32→14:37)
[2021-11-01] MEDS ORDERED: Naloxone 0.4 mg VIAL 0.4 mg/ml 1 ml VIAL ONE (14:40)
[2021-11-01] MEDS ORDERED: Midazolam 10 mg/10 ml VIAL 1 mg/ml 10 ml VIAL (10 mg) ONE (14:41)
[2021-11-01] MEDS ORDERED: Flumazenil 0.5 mg/5 ml 0.1 MG/ML 5 ml VIAL ONE (14:42)
[2021-11-01] MEDS ORDERED: fentaNYL 100 mcg/2 ml 50 MCG/ML VIAL ONE (14:42)
[2021-11-01] MEDS ORDERED: Lidocaine 2% PF 5 ML VIAL ONE (14:53)
[2021-11-01] MEDS ORDERED: Midazolam 10 mg/10 ml VIAL 1 mg/ml 10 ml VIAL (10 mg) IV SLOW PU ONE (15:00)
[2021-11-01] MEDS ORDERED: fentaNYL 100 mcg/2 ml 50 MCG/ML VIAL IV ONE (15:00)
[2021-11-01] MEDS: Enoxaparin 40 MG/0.4 ML SYR SUBCUT SCH (20:56)
[2021-11-02] MEDS: methylPREDNISolone 125 mg 2 ML VIAL IV SCH ×3 (01:34→18:27)
[2021-11-02] MEDS: cefTRIAXone 1 gm/50 mL NS BAG 1 GM/50 ML BAG IVPB SCH (01:35)
[2021-11-02 04:13] LABS: ABS Lymphocytes 0.9 10^3/ul (1.0-4.8); ABS Monocytes 0.6 10^3/ul (0-0.8); ABS Neutrophils 8.3 10^3/ul (1.5-7.7); Eosinophil % 0.1 %; Hematocrit 37 % (35-47); Hemoglobin 12.2 g/dL (12.0-16.0); Lymphocyte % 8.7 %; Mean Corpuscular HGB Conc 34 g/dL (31-36); Mean Corpuscular Hemoglobin 29 pg (27-31); Mean Corpuscular Volume 87 fL (80-97); Mean Platelet Volume 6.7 fL (7.4-10.4); Platelet Count 319 10^3/uL (150-450); Red Blood Count 4.21 10^6 /uL (3.70-4.87); Red Cell Distribution Width 14 % (10-15); White Blood Count 9.8 10^3/uL (3.5-10.8)
[2021-11-02 04:27] LABS: Calcium 8.9 mg/dL (8.6-10.3); Potassium 4.7 mmol/L (3.5-5.0); eGFR CKD-EPI 86.1 (>60)
[2021-11-02] MEDS: Cholestyramine Resin 4 GM POWDER PO SCH ×3 (09:08→21:06)
[2021-11-02] MEDS: Morphine ER 30 mg TAB ** extended release PO SCH ×2 (09:09→21:02)
[2021-11-02] MEDS: Desipramine 50 mg TAB PO SCH (09:09)
[2021-11-02 09:54] LABS: Scleroderma Ab <0.2 U
[2021-11-02 14:09] LABS: Cytomegalovirus IgG Antibody Negative (Negative)
[2021-11-02] MEDS: Enoxaparin 40 MG/0.4 ML SYR SUBCUT SCH (21:01)
[2021-11-03] MEDS: cefTRIAXone 1 gm/50 mL NS BAG 1 GM/50 ML BAG IVPB SCH (01:37)
[2021-11-03] MEDS: methylPREDNISolone 125 mg 2 ML VIAL IV SCH ×3 (01:38→17:53)
[2021-11-03] MEDS: Cholestyramine Resin 4 GM POWDER PO SCH ×3 (08:23→21:04)
[2021-11-03] MEDS: Morphine ER 30 mg TAB ** extended release PO SCH ×2 (08:25→20:02)
[2021-11-03] MEDS: Desipramine 50 mg TAB PO SCH (08:27)
[2021-11-03] MEDS ORDERED: Anidulafungin 200 MG in NS 0.9% 250 ml 200 ML IVPB SCH (16:47)
[2021-11-03] MEDS ORDERED: Anidulafungin 200 MG in NS 0.9% 250 ml 200 ML IVPB ONE (18:00)
[2021-11-03] MEDS ORDERED: cefTRIAXone 1 gm/50 mL NS BAG 1 GM/50 ML BAG IVPB SCH (18:23)
[2021-11-03] MEDS: Enoxaparin 40 MG/0.4 ML SYR SUBCUT SCH (20:02)
[2021-11-03] MEDS: Nystatin SUSPENSION 100,000 UNITS/ML UDC PO SCH (23:18)
[2021-11-04] MEDS: cefTRIAXone 1 gm/50 mL NS BAG 1 GM/50 ML BAG IVPB SCH (01:45)
[2021-11-04] MEDS: methylPREDNISolone 125 mg 2 ML VIAL IV SCH (01:45)
[2021-11-04] MEDS: Morphine ER 30 mg TAB ** extended release PO SCH ×2 (08:13→19:44)
[2021-11-04] MEDS: Desipramine 50 mg TAB PO SCH (08:17)
[2021-11-04] MEDS: Nystatin SUSPENSION 100,000 UNITS/ML UDC PO SCH ×4 (08:19→19:45)
[2021-11-04] MEDS: Cholestyramine Resin 4 GM POWDER PO SCH ×3 (08:20→19:45)
[2021-11-04] MEDS ORDERED: Polyethylene Glycol 3350 17 GM PACKET PO SCH (09:00)
[2021-11-04] MEDS ORDERED: Anidulafungin 200 MG in NS 0.9% 250 ml 200 ML IVPB SCH (10:00)
[2021-11-04] MEDS: methylPREDNISolone SOD 40 mg/ml 1 ml VIAL IV SCH ×2 (10:31→17:37)
[2021-11-04] MEDS: Anidulafungin 100 MG in NS 0.9% 100 ml BAG 100 ML IVPB SCH (17:37)
[2021-11-04] MEDS: Enoxaparin 40 MG/0.4 ML SYR SUBCUT SCH (19:45)
[2021-11-05] MEDS: methylPREDNISolone SOD 40 mg/ml 1 ml VIAL IV SCH ×3 (02:25→16:12)
[2021-11-05] MEDS: Morphine ER 30 mg TAB ** extended release PO SCH ×2 (07:44→20:25)
[2021-11-05] MEDS: Cholestyramine Resin 4 GM POWDER PO SCH ×3 (07:45→20:25)
[2021-11-05] MEDS: Desipramine 50 mg TAB PO SCH (07:45)
[2021-11-05] MEDS: Nystatin SUSPENSION 100,000 UNITS/ML UDC PO SCH ×4 (08:39→20:25)
[2021-11-05 10:24] LABS: Immunoglobulin A 134 mg/dL (61 - 356); Immunoglobulin G 852 mg/dL (767 - 1590); Immunoglobulin M 63 mg/dL (37 - 286)
[2021-11-05 14:15] LABS: Immunoglobulin Subclass IgG4 45.5 mg/dL
[2021-11-05] MEDS: Anidulafungin 100 MG in NS 0.9% 100 ml BAG 100 ML IVPB SCH (16:11)
[2021-11-05] MEDS: Enoxaparin 40 MG/0.4 ML SYR SUBCUT SCH (20:26)
[2021-11-06] MEDS: methylPREDNISolone SOD 40 mg/ml 1 ml VIAL IV SCH ×3 (02:51→21:03)
[2021-11-06] MEDS: Nystatin SUSPENSION 100,000 UNITS/ML UDC PO SCH ×4 (08:52→21:01)
[2021-11-06] MEDS: Morphine ER 30 mg TAB ** extended release PO SCH ×2 (08:57→21:02)
[2021-11-06] MEDS: Desipramine 50 mg TAB PO SCH (08:58)
[2021-11-06] MEDS: Cholestyramine Resin 4 GM POWDER PO SCH ×3 (08:59→21:02)
[2021-11-06 09:47] LABS: ABS Eosinophils 0.2 10^3/ul (0-0.6); ABS Lymphocytes 1.3 10^3/ul (1.0-4.8); ABS Monocytes 0.5 10^3/ul (0-0.8); ABS Neutrophils 6.4 10^3/ul (1.5-7.7); Eosinophil % 2.1 %; Hematocrit 35 % (35-47); Hemoglobin 11.7 g/dL (12.0-16.0); Mean Corpuscular HGB Conc 33 g/dL (31-36); Mean Corpuscular Hemoglobin 29 pg (27-31); Mean Corpuscular Volume 87 fL (80-97); Mean Platelet Volume 6.7 fL (7.4-10.4); Platelet Count 281 10^3/uL (150-450); Red Blood Count 4.04 10^6 /uL (3.70-4.87); Red Cell Distribution Width 14 % (10-15); White Blood Count 8.4 10^3/uL (3.5-10.8)
[2021-11-06 10:07] LABS: Albumin/Globulin Ratio 1.3 (1-3); Calcium 7.9 mg/dL (8.6-10.3); Globulin 2.3 g/dL (2-4); Magnesium 1.8 mg/dL (1.9-2.7); Total Bilirubin 0.3 mg/dL (0.2-1.0); Total Protein 5.3 g/dL (6.4-8.9); eGFR CKD-EPI 87.5 (>60)
[2021-11-06] MEDS ORDERED: Magnesium Sulfate IV 1GM/100ML 1 GM/100 ML BAG IV ONE (12:07)
[2021-11-06] MEDS: Anidulafungin 100 MG in NS 0.9% 100 ml BAG 100 ML IVPB SCH (17:47)
[2021-11-06] MEDS: Enoxaparin 40 MG/0.4 ML SYR SUBCUT SCH (21:02)
[2021-11-07 08:04] VITALS: BP 159/85
[2021-11-07 08:13] LABS: ABS Eosinophils 0.2 10^3/ul (0-0.6); ABS Lymphocytes 2.1 10^3/ul (1.0-4.8); ABS Monocytes 0.7 10^3/ul (0-0.8); ABS Neutrophils 6.9 10^3/ul (1.5-7.7); Eosinophil % 2.2 %; Hematocrit 38 % (35-47); Hemoglobin 12.6 g/dL (12.0-16.0); Lymphocyte % 20.9 %; Mean Corpuscular HGB Conc 33 g/dL (31-36); Mean Corpuscular Hemoglobin 29 pg (27-31); Mean Corpuscular Volume 89 fL (80-97); Mean Platelet Volume 7.2 fL (7.4-10.4); Platelet Count 293 10^3/uL (150-450); Red Blood Count 4.32 10^6 /uL (3.70-4.87); Red Cell Distribution Width 14 % (10-15); White Blood Count 9.8 10^3/uL (3.5-10.8)
[2021-11-07 08:24] LABS: Albumin 3.2 g/dL (3.2-5.2); Albumin/Globulin Ratio 1.3 (1-3); C Reactive Protein 2.84 mg/L (<8.01); Calcium 8.3 mg/dL (8.6-10.3); Globulin 2.5 g/dL (2-4); Magnesium 2.1 mg/dL (1.9-2.7); Potassium 4.4 mmol/L (3.5-5.0); Total Bilirubin 0.4 mg/dL (0.2-1.0); Total Protein 5.7 g/dL (6.4-8.9); eGFR CKD-EPI 86.1 (>60)
[2021-11-07] MEDS: Nystatin SUSPENSION 100,000 UNITS/ML UDC PO SCH (08:33)
[2021-11-07] MEDS: Cholestyramine Resin 4 GM POWDER PO SCH (08:33)
[2021-11-07] MEDS: Morphine ER 30 mg TAB ** extended release PO SCH (08:35)
[2021-11-07] MEDS: Desipramine 50 mg TAB PO SCH (08:35)
[2021-11-14 14:06] LABS: Aspergillus fumigatus IgG Ab 74.9 mg/L (<=102); Micropolyspora faeni IgG Ab <2.0 mg/L (<=13.2)
== END 2021-11-07 11:30 | disposition home or self-care (01) | DRG 205 ==
LOC: EDHOLD 21:54 → ED 21:54 → SUATTDRO 23:49 → MEDTELE 10-28 03:28 → SUATTDRO 10-28 12:30 → ICU 10-29 13:32 → MEDTELE 11-04 16:19
PROVIDERS: ADMIT Internal Medicine; ATTEND Hospitalist

== ENCOUNTER 2021-12-11 10:25 | Inpatient (IN) ==
[2021-12-11] MEDS ORDERED: Lactated Ringers 1000 ml BAG 1,000 ML IV ONE ×2 (10:55→14:26)
[2021-12-11 11:40] LABS: ABS Basophils 0.1 10^3/ul (0-0.2); ABS Eosinophils 0.1 10^3/ul (0-0.6); ABS Monocytes 1.1 10^3/ul (0-0.8); ABS Neutrophils 15.4 10^3/ul (1.5-7.7); Eosinophil % 0.5 %; Hematocrit 38 % (35-47); Hemoglobin 12.3 g/dL (12.0-16.0); Lymphocyte % 10.7 %; Mean Corpuscular HGB Conc 32 g/dL (31-36); Mean Corpuscular Hemoglobin 28 pg (27-31); Mean Corpuscular Volume 88 fL (80-97); Mean Platelet Volume 7.3 fL (7.4-10.4); Platelet Count 192 10^3/uL (150-450); Red Blood Count 4.32 10^6 /uL (3.70-4.87); Red Cell Distribution Width 16 % (10-15); White Blood Count 18.7 10^3/uL (3.5-10.8)
[2021-12-11 12:10] LABS: Albumin 3.4 g/dL (3.2-5.2); Albumin/Globulin Ratio 1.4 (1-3); Globulin 2.4 g/dL (2-4); Potassium 3.3 mmol/L (3.5-5.0); Total Bilirubin 0.6 mg/dL (0.2-1.0); Total Protein 5.8 g/dL (6.4-8.9); eGFR CKD-EPI 58.9 (>60)
[2021-12-11] MEDS ORDERED: Iodixanol (CONTRAST) 320 MG/ML 100 ML SDV IV ONE (12:20)
[2021-12-11] MEDS ORDERED: Potassium Chlor 20 meq TAB.ER PO ONE (13:34)
[2021-12-11] MEDS ORDERED: Ondansetron 4 mg VIAL 2 MG/ML 2 ml VIAL IV PRN (16:01)
[2021-12-11] MEDS ORDERED: HYDROcodone/ACETAMIN 5/325 mg TAB PO PRN (16:04)
[2021-12-11] MEDS ORDERED: Morphine 4 MG/ML VIAL (1 ml) IV ONE (16:13)
[2021-12-11] MEDS ORDERED: Morphine ER 30 mg TAB ** extended release PO PRN (16:47)
[2021-12-11] MEDS ORDERED: Cefepime ADVAN 1 GM in NS 0.9% 50 ML 50 ML IVPB SCH (17:00)
[2021-12-11] MEDS ORDERED: Lactated Ringers 1000 ml BAG 1,000 ML IV SCH (17:00)
[2021-12-11] MEDS ORDERED: metroNIDAZOLE IV 500 MG/100ML 500 MG/100 ML BAG IVPB SCH (17:00)
[2021-12-11] MEDS: metroNIDAZOLE IV 500 MG/100ML 500 MG/100 ML BAG IVPB ONE ×2 (17:13→17:26)
[2021-12-11] MEDS ORDERED: PEG 3000 GI LAVAGE 1 GALLON PO ONE (17:17)
[2021-12-11] MEDS: Enoxaparin 40 MG/0.4 ML SYR SUBCUT SCH (17:26)
[2021-12-11] MEDS: Cefepime 1 GM in Dextrose 1 GM/50 ML BAG IV SCH ×2 (19:53→23:33)
[2021-12-11] MEDS: Cholecalciferol (VIT D3) 1,000 unit TAB PO SCH (22:06)
[2021-12-11] MEDS: PEG 3000 GI LAVAGE 1 GALLON PO SCH (22:07)
[2021-12-11 23:11] LABS: Venous Bicarbonate HCO3 31.5 mmol/L (24-28)
[2021-12-12] MEDS: metroNIDAZOLE IV 500 MG/100ML 500 MG/100 ML BAG IVPB SCH ×2 (03:34→12:41)
[2021-12-12 05:18] LABS: ABS Eosinophils 0.1 10^3/ul (0-0.6); ABS Lymphocytes 0.5 10^3/ul (1.0-4.8); ABS Monocytes 0.7 10^3/ul (0-0.8); ABS Neutrophils 15.3 10^3/ul (1.5-7.7); Eosinophil % 0.4 %; Hematocrit 32 % (35-47); Hemoglobin 10.7 g/dL (12.0-16.0); Lymphocyte % 2.8 %; Mean Corpuscular HGB Conc 33 g/dL (31-36); Mean Corpuscular Hemoglobin 29 pg (27-31); Mean Corpuscular Volume 86 fL (80-97); Mean Platelet Volume 7.4 fL (7.4-10.4); Platelet Count 154 10^3/uL (150-450); Red Blood Count 3.71 10^6 /uL (3.70-4.87); Red Cell Distribution Width 17 % (10-15); White Blood Count 16.5 10^3/uL (3.5-10.8)
[2021-12-12 05:43] LABS: Albumin 2.8 g/dL (3.2-5.2); Albumin/Globulin Ratio 1.5 (1-3); Calcium 8.3 mg/dL (8.6-10.3); Globulin 1.9 g/dL (2-4); Magnesium 1.7 mg/dL (1.9-2.7); Total Bilirubin 0.9 mg/dL (0.2-1.0); Total Protein 4.7 g/dL (6.4-8.9); eGFR CKD-EPI 55.6 (>60)
[2021-12-12] MEDS ORDERED: Magnesium Sulfate 2 gm BAG 2 GM/50 ML BAG IVPB ONE (07:46)
[2021-12-12] MEDS ORDERED: PEG 3000 GI LAVAGE 1 GALLON PO ONE ×2 (09:01→16:05)
[2021-12-12] MEDS: Calcium (OSCAL) 500 mg TAB PO SCH (10:39)
[2021-12-12] MEDS: Cholecalciferol (VIT D3) 1,000 unit TAB PO SCH ×2 (10:39→23:07)
[2021-12-12] MEDS: Aspirin EC 81 mg TAB.EC (enteric coated) PO SCH (10:45)
[2021-12-12] MEDS: Desipramine 50 mg TAB PO SCH (10:48)
[2021-12-12] MEDS: PEG 3000 GI LAVAGE 1 GALLON PO SCH (10:50)
[2021-12-12] MEDS ORDERED: Cefepime 1 GM in Dextrose 1 GM/50 ML BAG IV SCH (11:00)
[2021-12-12] MEDS: Cefepime 1 GM in Dextrose 1 GM/50 ML BAG IV SCH ×3 (11:34→23:06)
[2021-12-12] MEDS ORDERED: Midazolam 10 mg/10 ml VIAL 1 mg/ml 10 ml VIAL (10 mg) ONE (14:44)
[2021-12-12] MEDS ORDERED: fentaNYL 100 mcg/2 ml 50 MCG/ML VIAL ONE (14:44)
[2021-12-12] MEDS ORDERED: Sodium Phosphate ADULT ENEMA 133 ML BTL PR ONE ×2 (15:30→16:00)
[2021-12-12] MEDS: Enoxaparin 40 MG/0.4 ML SYR SUBCUT SCH (17:05)
[2021-12-12 17:15] LABS: C Reactive Protein 139.66 mg/L (<8.01)
[2021-12-12 17:37] LABS: Erythrocyte Sed Rate 7 mm/Hr (0-29)
[2021-12-13] MEDS: metroNIDAZOLE IV 500 MG/100ML 500 MG/100 ML BAG IVPB SCH ×3 (03:40→14:53)
[2021-12-13] MEDS: Cholecalciferol (VIT D3) 1,000 unit TAB PO SCH (08:32)
[2021-12-13] MEDS: Calcium (OSCAL) 500 mg TAB PO SCH (08:32)
[2021-12-13] MEDS: Aspirin EC 81 mg TAB.EC (enteric coated) PO SCH (08:33)
[2021-12-13] MEDS: Desipramine 50 mg TAB PO SCH (08:35)
[2021-12-13] MEDS: Cefepime 1 GM in Dextrose 1 GM/50 ML BAG IV SCH (08:36)
[2021-12-13 08:52] LABS: ABS Eosinophils 0.2 10^3/ul (0-0.6); ABS Lymphocytes 0.8 10^3/ul (1.0-4.8); ABS Monocytes 0.4 10^3/ul (0-0.8); ABS Neutrophils 8.4 10^3/ul (1.5-7.7); Eosinophil % 2.3 %; Hematocrit 29 % (35-47); Hemoglobin 9.8 g/dL (12.0-16.0); Lymphocyte % 7.7 %; Mean Corpuscular HGB Conc 34 g/dL (31-36); Mean Corpuscular Hemoglobin 29 pg (27-31); Mean Corpuscular Volume 87 fL (80-97); Mean Platelet Volume 6.9 fL (7.4-10.4); Platelet Count 164 10^3/uL (150-450); Red Blood Count 3.36 10^6 /uL (3.70-4.87); Red Cell Distribution Width 17 % (10-15); White Blood Count 9.8 10^3/uL (3.5-10.8)
[2021-12-13 09:11] LABS: Albumin 2.9 g/dL (3.2-5.2); Albumin/Globulin Ratio 1.3 (1-3); Calcium 8.3 mg/dL (8.6-10.3); Globulin 2.2 g/dL (2-4); Magnesium 1.9 mg/dL (1.9-2.7); Potassium 2.9 mmol/L (3.5-5.0); Total Bilirubin 0.5 mg/dL (0.2-1.0); Total Protein 5.1 g/dL (6.4-8.9); eGFR CKD-EPI 79.7 (>60)
[2021-12-13] MEDS ORDERED: fentaNYL 100 mcg/2 ml 50 MCG/ML VIAL ONE (10:01)
[2021-12-13] MEDS ORDERED: Midazolam 10 mg/10 ml VIAL 1 mg/ml 10 ml VIAL (10 mg) ONE (10:01)
[2021-12-13 11:09] LABS: Cytomegalovirus IgG Antibody Negative (Negative)
[2021-12-13] MEDS: KCL 20 MEQ/100 ML IVPREMIX 20 MEQ/100 ML BAG IV SCH ×2 (11:47→14:52)
[2021-12-13 14:14] VITALS: BP 170/82
[2021-12-13] MEDS ORDERED: Potassium Chlor 20 meq TAB.ER PO ONE (14:19)
[2021-12-14 07:19] LABS: CMV DNA DETECT/QT, P Undetected IU/mL (Undetected)
[2021-12-14 15:01] LABS: JO-1 Antibody <0.2 U; Scleroderma Ab <0.2 U
== END 2021-12-13 15:13 | disposition home or self-care (01) | DRG 394 ==
LOC: ED 10:25 → EDHOLD 10:25 → MEDTELE 21:18
PROVIDERS: ADMIT Hospitalist; ATTEND Internal Medicine

== ENCOUNTER 2021-12-14 12:54 | Inpatient (IN) ==
[2021-12-14 13:30] LABS: ABS Eosinophils 0.1 10^3/ul (0-0.6); ABS Lymphocytes 0.6 10^3/ul (1.0-4.8); ABS Monocytes 0.6 10^3/ul (0-0.8); ABS Neutrophils 10.9 10^3/ul (1.5-7.7); Eosinophil % 0.9 %; Hematocrit 34 % (35-47); Hemoglobin 10.9 g/dL (12.0-16.0); Lymphocyte % 4.9 %; Mean Corpuscular HGB Conc 33 g/dL (31-36); Mean Corpuscular Hemoglobin 28 pg (27-31); Mean Corpuscular Volume 86 fL (80-97); Mean Platelet Volume 7.3 fL (7.4-10.4); Platelet Count 172 10^3/uL (150-450); Red Blood Count 3.87 10^6 /uL (3.70-4.87); Red Cell Distribution Width 16 % (10-15); White Blood Count 12.2 10^3/uL (3.5-10.8)
[2021-12-14 13:46] LABS: INR 1.17 (0.86-1.15)
[2021-12-14 13:50] LABS: ALT 20 U/L (7-52); AST 21 U/L (13-39); Albumin 3.4 g/dL (3.2-5.2); Albumin/Globulin Ratio 1.3 (1-3); Alkaline Phosphatase 58 U/L (35-149); Blood Urea Nitrogen 7 mg/dL (6-24); C Reactive Protein 75.51 mg/L (<8.01); CO2 Carbon Dioxide 31 mmol/L (22-32); Calcium 8.4 mg/dL (8.6-10.3); Chloride 98 mmol/L (101-111); Globulin 2.7 g/dL (2-4); Glucose 127 mg/dL (70-100); Sodium 137 mmol/L (135-145); Total Protein 6.1 g/dL (6.4-8.9); eGFR CKD-EPI 94.6 (>60)
[2021-12-14 13:59] LABS: Troponin I 0.03 ng/mL (<0.03)
[2021-12-14 14:00] LABS: Anion Gap 8 mmol/L (2-11); Potassium 2.6 mmol/L (3.5-5.0)
[2021-12-14] MEDS ORDERED: Furosemide 20 mg/2 ml IV VIAL IV SLOW PU ONE (14:01)
[2021-12-14] MEDS ORDERED: Iodixanol (CONTRAST) 320 MG/ML 100 ML SDV IV ONE (16:17)
[2021-12-14] MEDS ORDERED: Potassium Chlor 20 meq TAB.ER PO ONE (17:18)
[2021-12-14] MEDS ORDERED: KCL 20 MEQ/100 ML IVPREMIX 20 MEQ/100 ML BAG IV ONE (17:18)
[2021-12-14 18:05] LABS: Troponin I 0.03 ng/mL (<0.03)
[2021-12-14 19:29] LABS: Urine Appearance Clear; Urine Bilirubin Negative (Negative); Urine Blood Negative (Negative); Urine Color Straw; Urine Glucose Negative (Negative); Urine Ketones Negative (Negative); Urine Nitrite Negative (Negative); Urine Protein Negative (Negative); Urine Specific Gravity 1.012 (1.002-1.030); Urine Urobilinogen Negative (Negative)
[2021-12-14] MEDS ORDERED: Naloxone Nasal Spray 4 MG/0.1 ML NASAL.SPR INTRANASAL PRN (20:12)
[2021-12-14] MEDS ORDERED: Enoxaparin 40 MG/0.4 ML SYR SUBCUT SCH (21:00)
[2021-12-14] MEDS ORDERED: Potassium Chlor 10 meq TAB PO ONE (21:46)
[2021-12-14] MEDS ORDERED: Furosemide 40 mg/4 ml IV VIAL IV ONE (21:47)
[2021-12-14 22:05] LABS: Magnesium 1.5 mg/dL (1.9-2.7)
[2021-12-14 22:23] LABS: PCO2 Arterial 37 mmHg (35-45); PO2 Arterial 74 mmHg (80-100)
[2021-12-14] MEDS ORDERED: Magnesium Sulf 4 GM/100 ML IV 4,000 MG/100 ML BAG IVPB ONE (23:01)
[2021-12-14] MEDS: Aspirin EC 81 mg TAB.EC (enteric coated) PO SCH (23:59)
[2021-12-14] MEDS: Morphine ER 30 mg TAB ** extended release PO SCH (23:59)
[2021-12-14] MEDS: Cholecalciferol (VIT D3) 1,000 unit TAB PO SCH (23:59)
[2021-12-15] MEDS: KCL 20 MEQ/100 ML IVPREMIX 20 MEQ/100 ML BAG IV SCH ×3 (00:50→06:41)
[2021-12-15] MEDS: Metoprolol Tartrate 5 mg VIAL 5 ml VIAL (1 mg/ml) IV PRN ×2 (00:50→17:53)
[2021-12-15 01:40] LABS: Phosphorus 3.6 mg/dL (2.5-5.0)
[2021-12-15 04:53] LABS: Calcium 7.5 mg/dL (8.6-10.3); Potassium 3.2 mmol/L (3.5-5.0); eGFR CKD-EPI 95.2 (>60)
[2021-12-15 05:22] LABS: ABS Eosinophils 0.2 10^3/ul (0-0.6); ABS Lymphocytes 1.5 10^3/ul (1.0-4.8); ABS Monocytes 0.8 10^3/ul (0-0.8); ABS Neutrophils 10.4 10^3/ul (1.5-7.7); Eosinophil % 1.3 %; Hematocrit 31 % (35-47); Hemoglobin 10.2 g/dL (12.0-16.0); Lymphocyte % 11.7 %; Mean Corpuscular HGB Conc 33 g/dL (31-36); Mean Corpuscular Hemoglobin 29 pg (27-31); Mean Corpuscular Volume 86 fL (80-97); Mean Platelet Volume 7.2 fL (7.4-10.4); Platelet Count 172 10^3/uL (150-450); Red Blood Count 3.58 10^6 /uL (3.70-4.87); Red Cell Distribution Width 16 % (10-15)
[2021-12-15 05:39] LABS: Albumin/Globulin Ratio 1.3 (1-3); Calcium 7.6 mg/dL (8.6-10.3); Globulin 2.3 g/dL (2-4); Magnesium 2.9 mg/dL (1.9-2.7); Phosphorus 2.2 mg/dL (2.5-5.0); Potassium 3.1 mmol/L (3.5-5.0); Total Bilirubin 0.6 mg/dL (0.2-1.0); Total Protein 5.3 g/dL (6.4-8.9); eGFR CKD-EPI 96.7 (>60)
[2021-12-15] MEDS: Cholecalciferol (VIT D3) 1,000 unit TAB PO SCH ×2 (08:38→22:26)
[2021-12-15] MEDS: Desipramine 50 mg TAB PO SCH (08:38)
[2021-12-15] MEDS: Aspirin EC 81 mg TAB.EC (enteric coated) PO SCH (08:38)
[2021-12-15] MEDS ORDERED: Potassium Phosphate IV 15 MMOLE in NS 0.9% 250 ml 250 ML IVPB ONE (10:29)
[2021-12-15] MEDS ORDERED: Potassium Chlor 20 meq TAB.ER PO ONE (10:29)
[2021-12-15] MEDS: Morphine ER 30 mg TAB ** extended release PO SCH ×2 (10:48→22:26)
[2021-12-15] MEDS ORDERED: Furosemide 40 mg/4 ml IV VIAL IV SLOW PU ONE (13:45)
[2021-12-15 16:25] LABS: Potassium 3.9 mmol/L (3.5-5.0); eGFR CKD-EPI 94.9 (>60)
[2021-12-16] MEDS: Metoprolol Tartrate 5 mg VIAL 5 ml VIAL (1 mg/ml) IV PRN ×2 (02:24→07:59)
[2021-12-16 03:26] LABS: ABS Basophils 0.1 10^3/ul (0-0.2); ABS Eosinophils 0.3 10^3/ul (0-0.6); ABS Lymphocytes 1.6 10^3/ul (1.0-4.8); ABS Monocytes 0.8 10^3/ul (0-0.8); ABS Neutrophils 14.9 10^3/ul (1.5-7.7); Eosinophil % 1.6 %; Hematocrit 32 % (35-47); Hemoglobin 10.4 g/dL (12.0-16.0); Mean Corpuscular HGB Conc 33 g/dL (31-36); Mean Corpuscular Hemoglobin 28 pg (27-31); Mean Corpuscular Volume 86 fL (80-97); Mean Platelet Volume 7.5 fL (7.4-10.4); Platelet Count 182 10^3/uL (150-450); Red Cell Distribution Width 17 % (10-15); White Blood Count 17.7 10^3/uL (3.5-10.8)
[2021-12-16 03:43] LABS: ALT 23 U/L (7-52); Albumin 2.9 g/dL (3.2-5.2); Albumin/Globulin Ratio 1.2 (1-3); Alkaline Phosphatase 65 U/L (35-149); Blood Urea Nitrogen 11 mg/dL (6-24); CO2 Carbon Dioxide 29 mmol/L (22-32); Calcium 7.5 mg/dL (8.6-10.3); Chloride 98 mmol/L (101-111); Globulin 2.4 g/dL (2-4); Glucose 97 mg/dL (70-100); Magnesium 1.8 mg/dL (1.9-2.7); Sodium 134 mmol/L (135-145); Total Protein 5.3 g/dL (6.4-8.9); eGFR CKD-EPI 93.6 (>60)
[2021-12-16] MEDS ORDERED: Magnesium Sulfate 2 gm BAG 2 GM/50 ML BAG IVPB ONE (03:53)
[2021-12-16 03:55] LABS: Anion Gap 7 mmol/L (2-11)
[2021-12-16 04:50] LABS: Phosphorus 2.3 mg/dL (2.5-5.0); Potassium Redraw 3.4 mmol/L (3.5-5.0)
[2021-12-16] MEDS ORDERED: Potassium Chlor 20 meq TAB.ER PO ONE (04:56)
[2021-12-16] MEDS ORDERED: Furosemide 40 mg/4 ml IV VIAL IV SLOW PU ONE ×2 (04:56→22:24)
[2021-12-16] MEDS ORDERED: Potassium Phosphate IV 15 MMOLE in NS 0.9% 250 ml 250 ML IVPB ONE (05:15)
[2021-12-16] MEDS: Desipramine 50 mg TAB PO SCH (07:42)
[2021-12-16] MEDS: Cholecalciferol (VIT D3) 1,000 unit TAB PO SCH ×2 (07:43→21:04)
[2021-12-16] MEDS ORDERED: Furosemide 20 mg/2 ml IV VIAL IV ONE (07:45)
[2021-12-16] MEDS: Aspirin EC 81 mg TAB.EC (enteric coated) PO SCH (07:46)
[2021-12-16] MEDS: methylPREDNISolone 125 mg 2 ML VIAL IV SCH ×3 (08:10→22:47)
[2021-12-16] MEDS: Morphine ER 30 mg TAB ** extended release PO SCH ×2 (10:12→22:30)
[2021-12-16] MEDS ORDERED: Digoxin IV 0.5 MG/2 ML AMP (0.25 MG/ML) IV SLOW PU ONE ×2 (14:00→18:00)
[2021-12-16] MEDS ORDERED: Furosemide 40 mg/4 ml IV VIAL ONE (22:37)
[2021-12-17 06:23] LABS: ABS Lymphocytes 0.8 10^3/ul (1.0-4.8); ABS Monocytes 0.6 10^3/ul (0-0.8); ABS Neutrophils 17.1 10^3/ul (1.5-7.7); Eosinophil % 0.1 %; Hematocrit 30 % (35-47); Hemoglobin 9.9 g/dL (12.0-16.0); Lymphocyte % 4.2 %; Mean Corpuscular HGB Conc 33 g/dL (31-36); Mean Corpuscular Hemoglobin 28 pg (27-31); Mean Corpuscular Volume 85 fL (80-97); Mean Platelet Volume 7.8 fL (7.4-10.4); Platelet Count 224 10^3/uL (150-450); Red Blood Count 3.49 10^6 /uL (3.70-4.87); Red Cell Distribution Width 16 % (10-15); White Blood Count 18.5 10^3/uL (3.5-10.8)
[2021-12-17 06:42] LABS: Albumin 2.8 g/dL (3.2-5.2); Albumin/Globulin Ratio 1.1 (1-3); Calcium 7.1 mg/dL (8.6-10.3); Globulin 2.5 g/dL (2-4); Magnesium 1.7 mg/dL (1.9-2.7); Phosphorus 3.1 mg/dL (2.5-5.0); Potassium 3.6 mmol/L (3.5-5.0); Total Bilirubin 0.6 mg/dL (0.2-1.0); Total Protein 5.3 g/dL (6.4-8.9); eGFR CKD-EPI 94.9 (>60)
[2021-12-17] MEDS ORDERED: Magnesium Sulfate IV 3 GM in NS 0.9% 100 ml BAG 100 ML IVPB ONE (07:30)
[2021-12-17] MEDS ORDERED: Potassium Chloride LIQUID 20 MEQ/15 ML LIQUID PO ONE (07:30)
[2021-12-17] MEDS ORDERED: Magnesium Sulfate 2 GM IV (Premix) IVPB ONE (08:30)
[2021-12-17] MEDS: Morphine ER 30 mg TAB ** extended release PO SCH ×2 (08:51→23:16)
[2021-12-17] MEDS: Cholecalciferol (VIT D3) 1,000 unit TAB PO SCH ×2 (08:51→20:23)
[2021-12-17] MEDS: methylPREDNISolone 125 mg 2 ML VIAL IV SCH ×3 (08:53→23:16)
[2021-12-17] MEDS: Desipramine 50 mg TAB PO SCH (08:53)
[2021-12-17] MEDS ORDERED: Furosemide 40 mg/4 ml IV VIAL IV SLOW PU ONE (09:50)
[2021-12-18 05:04] LABS: ABS Lymphocytes 1.1 10^3/ul (1.0-4.8); ABS Monocytes 0.6 10^3/ul (0-0.8); ABS Neutrophils 16.6 10^3/ul (1.5-7.7); Eosinophil % 0.2 %; Hematocrit 30 % (35-47); Hemoglobin 9.8 g/dL (12.0-16.0); Lymphocyte % 6.1 %; Mean Corpuscular HGB Conc 33 g/dL (31-36); Mean Corpuscular Hemoglobin 28 pg (27-31); Mean Corpuscular Volume 86 fL (80-97); Mean Platelet Volume 7.8 fL (7.4-10.4); Platelet Count 287 10^3/uL (150-450); Red Blood Count 3.51 10^6 /uL (3.70-4.87); Red Cell Distribution Width 17 % (10-15); White Blood Count 18.4 10^3/uL (3.5-10.8)
[2021-12-18 05:23] LABS: Magnesium 2.1 mg/dL (1.9-2.7)
[2021-12-18 07:56] LABS: Calcium 7.7 mg/dL (8.6-10.3); Potassium 3.9 mmol/L (3.5-5.0); eGFR CKD-EPI 95.6 (>60)
[2021-12-18] MEDS ORDERED: Furosemide 40 mg/4 ml IV VIAL IV ONE (08:48)
[2021-12-18] MEDS: Cholecalciferol (VIT D3) 1,000 unit TAB PO SCH ×2 (08:51→20:03)
[2021-12-18] MEDS: Morphine ER 30 mg TAB ** extended release PO SCH ×2 (08:52→23:26)
[2021-12-18] MEDS: methylPREDNISolone 125 mg 2 ML VIAL IV SCH ×3 (08:52→23:26)
[2021-12-18] MEDS: Desipramine 50 mg TAB PO SCH (08:54)
[2021-12-18 09:05] LABS: C Reactive Protein 116.11 mg/L (<8.01)
[2021-12-19 04:42] LABS: Hematocrit 30 % (35-47); Hemoglobin 9.9 g/dL (12.0-16.0); Mean Corpuscular HGB Conc 33 g/dL (31-36); Mean Corpuscular Hemoglobin 29 pg (27-31); Mean Corpuscular Volume 86 fL (80-97); Mean Platelet Volume 7.8 fL (7.4-10.4); Platelet Count 325 10^3/uL (150-450); Red Blood Count 3.46 10^6 /uL (3.70-4.87); Red Cell Distribution Width 17 % (10-15); White Blood Count 15.9 10^3/uL (3.5-10.8)
[2021-12-19 04:54] LABS: Calcium 8.3 mg/dL (8.6-10.3); Magnesium 1.8 mg/dL (1.9-2.7); Phosphorus 4.3 mg/dL (2.5-5.0); Potassium 4.1 mmol/L (3.5-5.0); eGFR CKD-EPI 95.2 (>60)
[2021-12-19 05:18] LABS: ABS Lymphocytes 1.3 10^3/ul (1.0-4.8); ABS Monocytes 0.6 10^3/ul (0-0.8); ABS Neutrophils 13.9 10^3/ul (1.5-7.7); Eosinophil % 0.3 %
[2021-12-19] MEDS: methylPREDNISolone 125 mg 2 ML VIAL IV SCH (07:39)
[2021-12-19] MEDS: Cholecalciferol (VIT D3) 1,000 unit TAB PO SCH ×2 (07:40→20:14)
[2021-12-19] MEDS: Desipramine 50 mg TAB PO SCH (07:41)
[2021-12-19] MEDS ORDERED: Magnesium Sulfate 2 gm BAG 2 GM/50 ML BAG IVPB ONE (09:26)
[2021-12-19] MEDS: Morphine ER 30 mg TAB ** extended release PO SCH ×2 (10:27→22:51)
[2021-12-19] MEDS: methylPREDNISolone SOD 40 mg/ml 1 ml VIAL IV SCH (18:06)
[2021-12-20] MEDS: methylPREDNISolone SOD 40 mg/ml 1 ml VIAL IV SCH ×2 (05:13→17:36)
[2021-12-20 05:14] LABS: Hematocrit 30 % (35-47); Hemoglobin 9.9 g/dL (12.0-16.0); Mean Corpuscular HGB Conc 33 g/dL (31-36); Mean Corpuscular Hemoglobin 28 pg (27-31); Mean Corpuscular Volume 85 fL (80-97); Mean Platelet Volume 7.4 fL (7.4-10.4); Platelet Count 346 10^3/uL (150-450); Red Blood Count 3.49 10^6 /uL (3.70-4.87); Red Cell Distribution Width 17 % (10-15); White Blood Count 15.7 10^3/uL (3.5-10.8)
[2021-12-20 05:15] LABS: ABS Eosinophils 0.2 10^3/ul (0-0.6); ABS Lymphocytes 1.7 10^3/ul (1.0-4.8); ABS Monocytes 0.6 10^3/ul (0-0.8); ABS Neutrophils 13.2 10^3/ul (1.5-7.7); Lymphocyte % 10.9 %; Nucleated Red Blood Cells % 0.1
[2021-12-20 05:31] LABS: Calcium 8.3 mg/dL (8.6-10.3); Magnesium 1.9 mg/dL (1.9-2.7); Potassium 4.3 mmol/L (3.5-5.0)
[2021-12-20] MEDS: Desipramine 50 mg TAB PO SCH (07:48)
[2021-12-20] MEDS: Cholecalciferol (VIT D3) 1,000 unit TAB PO SCH ×2 (07:49→19:47)
[2021-12-20] MEDS: Morphine ER 30 mg TAB ** extended release PO SCH ×2 (09:56→21:33)
[2021-12-21] MEDS: methylPREDNISolone SOD 40 mg/ml 1 ml VIAL IV SCH (05:28)
[2021-12-21 05:34] LABS: Hematocrit 31 % (35-47); Hemoglobin 10.2 g/dL (12.0-16.0); Mean Corpuscular HGB Conc 33 g/dL (31-36); Mean Corpuscular Hemoglobin 28 pg (27-31); Mean Corpuscular Volume 87 fL (80-97); Mean Platelet Volume 7.2 fL (7.4-10.4); Platelet Count 385 10^3/uL (150-450); Red Blood Count 3.61 10^6 /uL (3.70-4.87); Red Cell Distribution Width 17 % (10-15); White Blood Count 17.4 10^3/uL (3.5-10.8)
[2021-12-21 05:37] LABS: ABS Basophils 0.1 10^3/ul (0-0.2); ABS Eosinophils 0.3 10^3/ul (0-0.6); ABS Lymphocytes 2.1 10^3/ul (1.0-4.8); ABS Monocytes 0.6 10^3/ul (0-0.8); ABS Neutrophils 14.4 10^3/ul (1.5-7.7); Eosinophil % 1.5 %; Lymphocyte % 11.9 %
[2021-12-21 05:54] LABS: CRP High Sensitivity 15.35 mg/L (<2.00); Calcium 8.3 mg/dL (8.6-10.3); Magnesium 1.8 mg/dL (1.9-2.7); Phosphorus 4.6 mg/dL (2.5-5.0); Potassium 4.6 mmol/L (3.5-5.0)
[2021-12-21] MEDS ORDERED: Magnesium Sulfate 2 gm BAG 2 GM/50 ML BAG IVPB ONE (07:51)
[2021-12-21] MEDS: Nystatin SUSPENSION 100,000 UNITS/ML UDC PO SCH ×4 (07:58→20:12)
[2021-12-21] MEDS: Desipramine 50 mg TAB PO SCH (08:00)
[2021-12-21] MEDS: Cholecalciferol (VIT D3) 1,000 unit TAB PO SCH ×2 (08:00→20:11)
[2021-12-21] MEDS: Morphine ER 30 mg TAB ** extended release PO SCH ×2 (10:04→20:12)
[2021-12-22 05:41] LABS: Hematocrit 31 % (35-47); Hemoglobin 10.1 g/dL (12.0-16.0); Mean Corpuscular HGB Conc 33 g/dL (31-36); Mean Corpuscular Hemoglobin 28 pg (27-31); Mean Corpuscular Volume 86 fL (80-97); Platelet Count 385 10^3/uL (150-450); Red Blood Count 3.55 10^6 /uL (3.70-4.87); Red Cell Distribution Width 17 % (10-15); White Blood Count 19.4 10^3/uL (3.5-10.8)
[2021-12-22 05:42] LABS: ABS Basophils 0.1 10^3/ul (0-0.2); ABS Eosinophils 0.4 10^3/ul (0-0.6); ABS Lymphocytes 2.9 10^3/ul (1.0-4.8); ABS Monocytes 0.8 10^3/ul (0-0.8); ABS Neutrophils 15.1 10^3/ul (1.5-7.7); Eosinophil % 2.1 %; Lymphocyte % 15.2 %; Nucleated Red Blood Cells % 0.1
[2021-12-22 05:57] LABS: Calcium 8.2 mg/dL (8.6-10.3); Potassium 4.2 mmol/L (3.5-5.0); eGFR CKD-EPI 94.9 (>60)
[2021-12-22 06:01] LABS: Digoxin 0.9 ng/ml (0.8-2.0)
[2021-12-22] MEDS: Nystatin SUSPENSION 100,000 UNITS/ML UDC PO SCH ×4 (09:00→20:05)
[2021-12-22] MEDS: Cholecalciferol (VIT D3) 1,000 unit TAB PO SCH ×2 (09:02→20:05)
[2021-12-22] MEDS: Morphine ER 30 mg TAB ** extended release PO SCH ×2 (09:02→20:04)
[2021-12-22] MEDS: Desipramine 50 mg TAB PO SCH (09:04)
[2021-12-23 08:31] LABS: Hematocrit 31 % (35-47); Hemoglobin 10.1 g/dL (12.0-16.0); Mean Corpuscular HGB Conc 32 g/dL (31-36); Mean Corpuscular Hemoglobin 28 pg (27-31); Mean Corpuscular Volume 87 fL (80-97); Mean Platelet Volume 7.1 fL (7.4-10.4); Platelet Count 413 10^3/uL (150-450); Red Blood Count 3.58 10^6 /uL (3.70-4.87); Red Cell Distribution Width 17 % (10-15); White Blood Count 17.3 10^3/uL (3.5-10.8)
[2021-12-23 08:52] LABS: Calcium 8.2 mg/dL (8.6-10.3); Potassium 4.2 mmol/L (3.5-5.0); eGFR CKD-EPI 83.5 (>60)
[2021-12-23] MEDS: Nystatin SUSPENSION 100,000 UNITS/ML UDC PO SCH ×4 (09:01→21:13)
[2021-12-23] MEDS: Cholecalciferol (VIT D3) 1,000 unit TAB PO SCH ×2 (09:03→21:11)
[2021-12-23] MEDS: Morphine ER 30 mg TAB ** extended release PO SCH ×2 (09:04→21:12)
[2021-12-23] MEDS: Desipramine 50 mg TAB PO SCH (09:05)
[2021-12-23 09:34] LABS: ABS Eosinophils 0.4 10^3/ul (0-0.6); ABS Lymphocytes 3.2 10^3/ul (1.0-4.8); ABS Monocytes 0.7 10^3/ul (0-0.8); ABS Neutrophils 12.9 10^3/ul (1.5-7.7); Eosinophil % 2.5 %; Lymphocyte % 18.6 %; Nucleated Red Blood Cells % 0.2
[2021-12-24 05:43] LABS: Hematocrit 32 % (35-47); Hemoglobin 10.1 g/dL (12.0-16.0); Mean Corpuscular HGB Conc 32 g/dL (31-36); Mean Corpuscular Hemoglobin 28 pg (27-31); Mean Corpuscular Volume 88 fL (80-97); Mean Platelet Volume 7.1 fL (7.4-10.4); Platelet Count 401 10^3/uL (150-450); Red Blood Count 3.57 10^6 /uL (3.70-4.87); Red Cell Distribution Width 17 % (10-15); White Blood Count 15.2 10^3/uL (3.5-10.8)
[2021-12-24 06:09] LABS: Albumin 2.7 g/dL (3.2-5.2); Albumin/Globulin Ratio 1.1 (1-3); Calcium 8.5 mg/dL (8.6-10.3); Globulin 2.4 g/dL (2-4); Magnesium 1.8 mg/dL (1.9-2.7); Potassium 4.3 mmol/L (3.5-5.0); Total Bilirubin 0.3 mg/dL (0.2-1.0); Total Protein 5.1 g/dL (6.4-8.9); eGFR CKD-EPI 75.2 (>60)
[2021-12-24] MEDS: Cholecalciferol (VIT D3) 1,000 unit TAB PO SCH (08:05)
[2021-12-24] MEDS: Nystatin SUSPENSION 100,000 UNITS/ML UDC PO SCH ×2 (08:08→12:30)
[2021-12-24] MEDS: Morphine ER 30 mg TAB ** extended release PO SCH (08:08)
[2021-12-24] MEDS: Desipramine 50 mg TAB PO SCH (08:10)
[2021-12-24] MEDS ORDERED: Furosemide 40 mg/4 ml IV VIAL IV ONE (10:50)
[2021-12-24 12:44] VITALS: BP 127/66
== END 2021-12-24 16:05 | disposition home health service (06) | DRG 189 ==
LOC: ED 12:54 → SUATTDRO 20:10 → EDHOLD 20:10 → ICU 23:17 → MEDTELE 12-22 13:45
PROVIDERS: ADMIT Internal Medicine; ATTEND Internal Medicine

== ENCOUNTER 2021-12-29 23:37 | Inpatient (IN) ==
[2021-12-29] MEDS ORDERED: Lactated Ringers 1000 ml BAG 1,000 ML IV ONE (23:55)
[2021-12-30 00:26] LABS: Hematocrit 39 % (35-47); Hemoglobin 12.6 g/dL (12.0-16.0); Mean Corpuscular HGB Conc 32 g/dL (31-36); Mean Corpuscular Hemoglobin 29 pg (27-31); Mean Corpuscular Volume 88 fL (80-97); Mean Platelet Volume 7.5 fL (7.4-10.4); Platelet Count 405 10^3/uL (150-450); Red Blood Count 4.39 10^6 /uL (3.70-4.87); Red Cell Distribution Width 18 % (10-15)
[2021-12-30 00:44] LABS: ALT 26 U/L (7-52); Albumin 3.4 g/dL (3.2-5.2); Albumin/Globulin Ratio 1.2 (1-3); Alkaline Phosphatase 91 U/L (35-149); Blood Urea Nitrogen 18 mg/dL (6-24); CO2 Carbon Dioxide 36 mmol/L (22-32); Calcium 9.4 mg/dL (8.6-10.3); Chloride 92 mmol/L (101-111); Globulin 2.8 g/dL (2-4); Glucose 174 mg/dL (70-100); Sodium 136 mmol/L (135-145); Total Protein 6.2 g/dL (6.4-8.9); eGFR CKD-EPI 46.2 (>60)
[2021-12-30 00:46] LABS: Troponin I 0.01 ng/mL (<0.03)
[2021-12-30 00:49] LABS: Anion Gap 8 mmol/L (2-11)
[2021-12-30 01:00] LABS: ABS Basophils 0.1 10^3/ul (0-0.2); ABS Eosinophils 0.1 10^3/ul (0-0.6); ABS Lymphocytes 1.5 10^3/ul (1.0-4.8); ABS Monocytes 1.5 10^3/ul (0-0.8); ABS Neutrophils 20.8 10^3/ul (1.5-7.7); Eosinophil % 0.2 %; Lymphocyte % 6.3 %; Nucleated Red Blood Cells % 0.1
[2021-12-30 01:32] LABS: Magnesium 1.9 mg/dL (1.9-2.7); Potassium Redraw 3.5 mmol/L (3.5-5.0)
[2021-12-30] MEDS ORDERED: Piperacillin/Tazobac ADVAN 3.375 GM in NS 0.9% 100 ml BAG 100 ML IV ONE (01:46)
[2021-12-30] MEDS ORDERED: Vancomycin 1,500 MG in NS 0.9% 250 ml 250 ML IVPB ONE (02:30)
[2021-12-30] MEDS ORDERED: HYDROcodone/ACETAMIN 5/325 mg TAB PO PRN (02:56)
[2021-12-30 06:43] LABS: ABS Eosinophils 0.1 10^3/ul (0-0.6); ABS Lymphocytes 1.6 10^3/ul (1.0-4.8); ABS Monocytes 1.2 10^3/ul (0-0.8); ABS Neutrophils 13.9 10^3/ul (1.5-7.7); Eosinophil % 0.5 %; Hematocrit 32 % (35-47); Hemoglobin 10.6 g/dL (12.0-16.0); Lymphocyte % 9.3 %; Mean Corpuscular HGB Conc 33 g/dL (31-36); Mean Corpuscular Hemoglobin 29 pg (27-31); Mean Corpuscular Volume 88 fL (80-97); Mean Platelet Volume 7.2 fL (7.4-10.4); Platelet Count 308 10^3/uL (150-450); Red Blood Count 3.68 10^6 /uL (3.70-4.87); Red Cell Distribution Width 18 % (10-15); White Blood Count 16.7 10^3/uL (3.5-10.8)
[2021-12-30 06:48] LABS: INR 1.7 (0.86-1.15)
[2021-12-30 06:58] LABS: Calcium 9.1 mg/dL (8.6-10.3); Potassium 3.4 mmol/L (3.5-5.0); eGFR CKD-EPI 52.1 (>60)
[2021-12-30 07:10] LABS: Digoxin 0.8 ng/ml (0.8-2.0)
[2021-12-30] MEDS: Cholecalciferol (VIT D3) 1,000 unit TAB PO SCH ×2 (08:05→22:47)
[2021-12-30] MEDS: Calcium (OSCAL) 500 mg TAB PO SCH (08:05)
[2021-12-30] MEDS: Desipramine 50 mg TAB PO SCH (08:07)
[2021-12-30] MEDS ORDERED: Potassium Chlor 20 meq TAB.ER PO ONE (09:56)
[2021-12-30 10:28] LABS: Phosphorus 5.5 mg/dL (2.5-5.0)
[2021-12-30] MEDS: NS 0.9% 1000 ml BAG 1,000 ML IV SCH (11:17)
[2021-12-31] MEDS: NS 0.9% 1000 ml BAG 1,000 ML IV SCH (03:59)
[2021-12-31 07:30] LABS: Hematocrit 30 % (35-47); Mean Corpuscular HGB Conc 33 g/dL (31-36); Mean Corpuscular Hemoglobin 29 pg (27-31); Mean Corpuscular Volume 88 fL (80-97); Platelet Count 262 10^3/uL (150-450); Red Blood Count 3.42 10^6 /uL (3.70-4.87); Red Cell Distribution Width 18 % (10-15); White Blood Count 10.4 10^3/uL (3.5-10.8)
[2021-12-31 07:46] LABS: Blood Urea Nitrogen 11 mg/dL (6-24); CO2 Carbon Dioxide 33 mmol/L (22-32); Calcium 8.9 mg/dL (8.6-10.3); Chloride 100 mmol/L (101-111); Glucose 81 mg/dL (70-100); Magnesium 1.6 mg/dL (1.9-2.7); Sodium 138 mmol/L (135-145); eGFR CKD-EPI 70.1 (>60)
[2021-12-31] MEDS ORDERED: Magnesium Sulf 4 GM/100 ML IV 4,000 MG/100 ML BAG IVPB ONE (08:14)
[2021-12-31 08:29] LABS: Anion Gap 5 mmol/L (2-11)
[2021-12-31] MEDS: Cholecalciferol (VIT D3) 1,000 unit TAB PO SCH ×2 (09:31→22:20)
[2021-12-31] MEDS: Calcium (OSCAL) 500 mg TAB PO SCH (09:34)
[2021-12-31] MEDS: Desipramine 50 mg TAB PO SCH (09:38)
[2021-12-31 10:06] LABS: Phosphorus 3.9 mg/dL (2.5-5.0); Potassium Redraw 3.7 mmol/L (3.5-5.0)
[2021-12-31] MEDS ORDERED: Potassium Chlor 20 meq TAB.ER PO ONE (14:52)
[2022-01-01 05:45] LABS: Hematocrit 29 % (35-47); Hemoglobin 9.3 g/dL (12.0-16.0); Mean Corpuscular HGB Conc 32 g/dL (31-36); Mean Corpuscular Hemoglobin 29 pg (27-31); Mean Corpuscular Volume 88 fL (80-97); Platelet Count 237 10^3/uL (150-450); Red Blood Count 3.23 10^6 /uL (3.70-4.87); Red Cell Distribution Width 18 % (10-15); White Blood Count 11.3 10^3/uL (3.5-10.8)
[2022-01-01 06:31] LABS: Calcium 8.5 mg/dL (8.6-10.3); Potassium 3.8 mmol/L (3.5-5.0)
[2022-01-01 06:37] LABS: eGFR CKD-EPI 83.5 (>60)
[2022-01-01] MEDS: Desipramine 50 mg TAB PO SCH (09:16)
[2022-01-01] MEDS: Cholecalciferol (VIT D3) 1,000 unit TAB PO SCH ×2 (09:16→20:35)
[2022-01-01] MEDS: Calcium (OSCAL) 500 mg TAB PO SCH (09:16)
[2022-01-01] MEDS ORDERED: Potassium Chlor 20 meq TAB.ER PO ONE (10:16)
[2022-01-01 15:24] LABS: Rapid COVID-19 Molecular Undetected (Undetected)
[2022-01-02 04:37] LABS: Hematocrit 30 % (35-47); Hemoglobin 9.8 g/dL (12.0-16.0); Mean Corpuscular HGB Conc 32 g/dL (31-36); Mean Corpuscular Hemoglobin 28 pg (27-31); Mean Corpuscular Volume 88 fL (80-97); Platelet Count 222 10^3/uL (150-450); Red Blood Count 3.45 10^6 /uL (3.70-4.87); Red Cell Distribution Width 18 % (10-15); White Blood Count 11.1 10^3/uL (3.5-10.8)
[2022-01-02 05:25] LABS: Calcium 8.4 mg/dL (8.6-10.3); Magnesium 1.8 mg/dL (1.9-2.7); Potassium 3.9 mmol/L (3.5-5.0); eGFR CKD-EPI 80.9 (>60)
[2022-01-02] MEDS ORDERED: Magnesium Sulf 4 GM/100 ML IV 4,000 MG/100 ML BAG IVPB ONE (06:47)
[2022-01-02] MEDS: Desipramine 50 mg TAB PO SCH (09:31)
[2022-01-02] MEDS: Cholecalciferol (VIT D3) 1,000 unit TAB PO SCH ×2 (09:37→20:00)
[2022-01-02] MEDS: Calcium (OSCAL) 500 mg TAB PO SCH (09:37)
[2022-01-03 05:00] LABS: Hematocrit 31 % (35-47); Hemoglobin 10.1 g/dL (12.0-16.0); Mean Corpuscular HGB Conc 33 g/dL (31-36); Mean Corpuscular Hemoglobin 29 pg (27-31); Mean Corpuscular Volume 89 fL (80-97); Mean Platelet Volume 7.1 fL (7.4-10.4); Platelet Count 217 10^3/uL (150-450); Red Blood Count 3.49 10^6 /uL (3.70-4.87); Red Cell Distribution Width 18 % (10-15); White Blood Count 11.9 10^3/uL (3.5-10.8)
[2022-01-03 05:24] LABS: Calcium 8.3 mg/dL (8.6-10.3); Magnesium 2.2 mg/dL (1.9-2.7); Potassium 3.6 mmol/L (3.5-5.0); eGFR CKD-EPI 75.2 (>60)
[2022-01-03] MEDS ORDERED: Potassium Chlor 20 meq TAB.ER PO ONE (07:03)
[2022-01-03] MEDS: Cholecalciferol (VIT D3) 1,000 unit TAB PO SCH ×2 (09:24→21:14)
[2022-01-03] MEDS: Calcium (OSCAL) 500 mg TAB PO SCH (09:26)
[2022-01-03] MEDS: Desipramine 50 mg TAB PO SCH (09:27)
[2022-01-03 23:05] LABS: Vitamin D Total 25(OH) 44.9 ng/mL (20-50)
[2022-01-04 06:18] LABS: Calcium 8.4 mg/dL (8.6-10.3); Potassium 3.7 mmol/L (3.5-5.0); eGFR CKD-EPI 71.1 (>60)
[2022-01-04] MEDS: Desipramine 50 mg TAB PO SCH (09:14)
[2022-01-04] MEDS: Calcium (OSCAL) 500 mg TAB PO SCH (09:15)
[2022-01-04] MEDS: Cholecalciferol (VIT D3) 1,000 unit TAB PO SCH (09:16)
[2022-01-04] MEDS ORDERED: Psyllium PAK PO SCH (10:00)
[2022-01-04 13:13] LABS: Rapid COVID-19 Molecular Undetected (Undetected)
[2022-01-04 13:49] VITALS: BP 123/59
== END 2022-01-04 13:15 | DRG 372 ==
LOC: ED 23:37 → SUATTDRO 12-30 02:39 → MED 12-30 02:39
PROVIDERS: ADMIT Hospitalist; ATTEND Internal Medicine

== ENCOUNTER 2022-06-01 21:51 | Inpatient (IN) ==
[2022-06-01] MEDS ORDERED: Morphine 4 MG/ML VIAL (1 ml) IV ONE (23:36)
[2022-06-01] MEDS ORDERED: Ondansetron 4 mg VIAL 2 MG/ML 2 ml VIAL IV ONE (23:36)
[2022-06-02 00:20] LABS: ABS Basophils 0.1 10^3/ul (0-0.2); ABS Eosinophils 0.2 10^3/ul (0-0.6); ABS Lymphocytes 1.6 10^3/ul (1.0-4.8); ABS Monocytes 0.8 10^3/ul (0-0.8); ABS Neutrophils 11.1 10^3/ul (1.5-7.7); Eosinophil % 1.2 %; Hematocrit 39 % (35-47); Hemoglobin 12.8 g/dL (12.0-16.0); Lymphocyte % 11.4 %; Mean Corpuscular HGB Conc 33 g/dL (31-36); Mean Corpuscular Hemoglobin 28 pg (27-31); Mean Corpuscular Volume 84 fL (80-97); Mean Platelet Volume 7.2 fL (7.4-10.4); Platelet Count 207 10^3/uL (150-450); Red Blood Count 4.64 10^6 /uL (3.70-4.87); Red Cell Distribution Width 16 % (10-15); White Blood Count 13.7 10^3/uL (3.5-10.8)
[2022-06-02 01:21] LABS: ALT 18 U/L (7-52); AST 20 U/L (13-39); Albumin/Globulin Ratio 1.5 (1-3); Alkaline Phosphatase 41 U/L (35-149); Anion Gap 6 mmol/L (2-11); Blood Urea Nitrogen 23 mg/dL (6-24); CO2 Carbon Dioxide 31 mmol/L (22-32); Calcium 9.4 mg/dL (8.6-10.3); Chloride 93 mmol/L (101-111); Globulin 2.7 g/dL (2-4); Glucose 129 mg/dL (70-100); Lipase < 10 U/L (11.0-82.0); Potassium 4.6 mmol/L (3.5-5.0); Sodium 130 mmol/L (135-145); Total Protein 6.7 g/dL (6.4-8.9); eGFR CKD-EPI 58.9 (>60)
[2022-06-02] MEDS ORDERED: Iohexol 350 (CONTRAST) 500 ML MDV IV ONE (01:26)
[2022-06-02] MEDS ORDERED: Morphine 4 MG/ML VIAL (1 ml) IV PRN (03:10)
[2022-06-02] MEDS ORDERED: Lactated Ringers 1000 ml BAG 1,000 ML IV ONE (03:10)
[2022-06-02] MEDS ORDERED: Morphine 4 MG/ML VIAL (1 ml) IV ONE (03:10)
[2022-06-02] MEDS ORDERED: Zosyn per Pharmacy NOTE FOLLOW UP SCH (05:00)
[2022-06-02] MEDS ORDERED: cefTRIAXone 1 gm/50 mL D5W 1 GM/50 ML BAG IV SCH (05:30)
[2022-06-02] MEDS ORDERED: Morphine 2 MG/ML SYRINGE IV PRN (06:06)
[2022-06-02] MEDS ORDERED: Acetaminophen IV 1 GM/100ML 100 ML IV PRN (06:07)
[2022-06-02] MEDS ORDERED: Magnesium Hydroxide LIQ 30 ML UDC PO PRN (06:09)
[2022-06-02] MEDS ORDERED: Polyethylene Glycol 3350 17 GM PACKET PO PRN (06:09)
[2022-06-02 06:18] LABS: Hematocrit 36 % (35-47); Hemoglobin 12.2 g/dL (12.0-16.0); Mean Corpuscular HGB Conc 34 g/dL (31-36); Mean Corpuscular Hemoglobin 28 pg (27-31); Mean Corpuscular Volume 83 fL (80-97); Platelet Count 196 10^3/uL (150-450); Red Blood Count 4.33 10^6 /uL (3.70-4.87); Red Cell Distribution Width 16 % (10-15)
[2022-06-02 06:43] LABS: Calcium 9.6 mg/dL (8.6-10.3); Magnesium 1.8 mg/dL (1.9-2.7); Potassium 4.5 mmol/L (3.5-5.0); eGFR CKD-EPI 67.4 (>60)
[2022-06-02] MEDS: metroNIDAZOLE IV 500 MG/100ML 500 MG/100 ML BAG IVPB SCH ×3 (08:01→16:10)
[2022-06-02] MEDS: Polyethylene Glycol 3350 17 GM PACKET PO SCH ×2 (10:25→22:34)
[2022-06-02] MEDS: Cholecalciferol (VIT D3) 1,000 unit TAB PO SCH ×2 (10:26→22:27)
[2022-06-02] MEDS: Calcium (OSCAL) 500 mg TAB PO SCH (10:27)
[2022-06-02] MEDS: Aspirin EC 81 mg TAB.EC (enteric coated) PO SCH (10:28)
[2022-06-02] MEDS: Morphine ER 30 mg TAB ** extended release PO SCH ×2 (10:29→22:27)
[2022-06-02] MEDS ORDERED: metroNIDAZOLE IV 500 MG/100ML 500 MG/100 ML BAG IVPB SCH (14:30)
[2022-06-03] MEDS: metroNIDAZOLE IV 500 MG/100ML 500 MG/100 ML BAG IVPB SCH ×3 (00:17→17:10)
[2022-06-03 04:51] LABS: ABS Eosinophils 0.3 10^3/ul (0-0.6); ABS Lymphocytes 2.4 10^3/ul (1.0-4.8); ABS Monocytes 0.7 10^3/ul (0-0.8); ABS Neutrophils 5.6 10^3/ul (1.5-7.7); Eosinophil % 2.9 %; Hematocrit 34 % (35-47); Hemoglobin 11.3 g/dL (12.0-16.0); Mean Corpuscular HGB Conc 33 g/dL (31-36); Mean Corpuscular Hemoglobin 28 pg (27-31); Mean Corpuscular Volume 83 fL (80-97); Platelet Count 183 10^3/uL (150-450); Red Blood Count 4.07 10^6 /uL (3.70-4.87); Red Cell Distribution Width 16 % (10-15)
[2022-06-03 05:24] LABS: Calcium 8.9 mg/dL (8.6-10.3); Potassium 4.6 mmol/L (3.5-5.0); eGFR CKD-EPI 53.8 (>60)
[2022-06-03] MEDS ORDERED: PEG 3000 GI LAVAGE 1 GALLON PO ONE (07:36)
[2022-06-03] MEDS: cefTRIAXone 1 gm/50 mL D5W 1 GM/50 ML BAG IV SCH (07:49)
[2022-06-03] MEDS: Morphine ER 30 mg TAB ** extended release PO SCH ×2 (09:39→21:11)
[2022-06-03] MEDS: Calcium (OSCAL) 500 mg TAB PO SCH (09:39)
[2022-06-03] MEDS: Aspirin EC 81 mg TAB.EC (enteric coated) PO SCH (09:41)
[2022-06-03] MEDS: Cholecalciferol (VIT D3) 1,000 unit TAB PO SCH ×2 (09:42→21:10)
[2022-06-03] MEDS ORDERED: NS 0.9% 1000 ml BAG 1,000 ML IV SCH (09:45)
[2022-06-04] MEDS: metroNIDAZOLE IV 500 MG/100ML 500 MG/100 ML BAG IVPB SCH ×2 (01:01→09:43)
[2022-06-04 05:29] LABS: ABS Eosinophils 0.3 10^3/ul (0-0.6); ABS Lymphocytes 2.2 10^3/ul (1.0-4.8); ABS Monocytes 0.6 10^3/ul (0-0.8); ABS Neutrophils 4.9 10^3/ul (1.5-7.7); Eosinophil % 3.4 %; Hematocrit 32 % (35-47); Hemoglobin 11.3 g/dL (12.0-16.0); Lymphocyte % 27.5 %; Mean Corpuscular HGB Conc 35 g/dL (31-36); Mean Corpuscular Hemoglobin 30 pg (27-31); Mean Corpuscular Volume 85 fL (80-97); Mean Platelet Volume 7.1 fL (7.4-10.4); Platelet Count 173 10^3/uL (150-450); Red Blood Count 3.81 10^6 /uL (3.70-4.87); Red Cell Distribution Width 16 % (10-15)
[2022-06-04] MEDS: cefTRIAXone 1 gm/50 mL D5W 1 GM/50 ML BAG IV SCH (05:37)
[2022-06-04 06:10] LABS: Calcium 8.7 mg/dL (8.6-10.3); Potassium 4.7 mmol/L (3.5-5.0); eGFR CKD-EPI 62.5 (>60)
[2022-06-04] MEDS: Calcium (OSCAL) 500 mg TAB PO SCH (09:48)
[2022-06-04] MEDS: Aspirin EC 81 mg TAB.EC (enteric coated) PO SCH (09:48)
[2022-06-04] MEDS: Cholecalciferol (VIT D3) 1,000 unit TAB PO SCH (09:49)
[2022-06-04] MEDS: Morphine ER 30 mg TAB ** extended release PO SCH (09:49)
[2022-06-04 11:22] VITALS: BP 137/68
== END 2022-06-04 12:15 | disposition home or self-care (01) | DRG 391 ==
LOC: EDHOLD 21:51 → ED 21:51 → SUATTDRO 06-02 03:51 → EDHOLD 06-02 08:15 → SSU 06-02 08:40
PROVIDERS: ADMIT Internal Medicine; ATTEND Internal Medicine

== ENCOUNTER 2022-12-25 16:50 | Observation (INO) ==
[2022-12-25 17:56] LABS: ABS Eosinophils 0.3 10^3/ul (0-0.6); ABS Lymphocytes 1.7 10^3/ul (1.0-4.8); ABS Monocytes 0.6 10^3/ul (0-0.8); ABS Neutrophils 5.2 10^3/ul (1.5-7.7); Eosinophil % 4.1 %; Hematocrit 39 % (35-47); Hemoglobin 12.4 g/dL (12.0-16.0); Lymphocyte % 21.2 %; Mean Corpuscular HGB Conc 32 g/dL (31-36); Mean Corpuscular Hemoglobin 29 pg (27-31); Mean Corpuscular Volume 90 fL (80-97); Mean Platelet Volume 7.4 fL (7.4-10.4); Nucleated Red Blood Cells % 0.1; Platelet Count 207 10^3/uL (150-450); Red Cell Distribution Width 14 % (10-15); White Blood Count 7.8 10^3/uL (3.5-10.8)
[2022-12-25 18:14] LABS: ALT 20 U/L (7-52); AST 21 U/L (13-39); Albumin/Globulin Ratio 1.5 (1-3); Alkaline Phosphatase 53 U/L (35-149); Anion Gap 1 mmol/L (2-11); Blood Urea Nitrogen 17 mg/dL (6-24); CO2 Carbon Dioxide 35 mmol/L (22-32); Calcium 9.1 mg/dL (8.6-10.3); Chloride 101 mmol/L (101-111); Creatinine, Serum 1.25 mg/dL (0.51-0.95); Globulin 2.6 g/dL (2-4); Glucose 76 mg/dL (70-100); Magnesium 2.7 mg/dL (1.9-2.7); Potassium 4.6 mmol/L (3.5-5.0); Sodium 137 mmol/L (135-145); Total Protein 6.6 g/dL (6.4-8.9); eGFR CKD-EPI 46.4 (>60)
[2022-12-25 18:16] LABS: High Sens Troponin Baseline 5 pg/mL (<15)
[2022-12-25 18:55] LABS: Urine Appearance Clear; Urine Bilirubin Negative (Negative); Urine Blood Negative (Negative); Urine Color Yellow; Urine Glucose Negative (Negative); Urine Ketones Negative (Negative); Urine Nitrite Negative (Negative); Urine Protein Negative (Negative); Urine Specific Gravity 1.005 (1.002-1.030); Urine Urobilinogen Negative (Negative)
[2022-12-25 19:11] LABS: High Sensitivity Troponin 1 Hr 5 pg/mL (<15)
[2022-12-25 22:46] LABS: TSH Ultra Thyroid Stim Horm 1.54 mcIU/mL (0.34-5.60)
[2022-12-25 22:57] LABS: Folate > 20.00 ng/mL (5.90-24.80)
[2022-12-25 22:58] LABS: Vitamin B12 561 pg/mL (180-914)
[2022-12-25 23:02] LABS: Vitamin D Total 25(OH) 49.8 ng/mL (20-50)
[2022-12-26] MEDS: Morphine ER 30 mg TAB ** extended release PO SCH ×2 (00:33→08:16)
[2022-12-26] MEDS ORDERED: [UNRECOGNIZED DRUG - OTHER] PO SCH (09:00)
[2022-12-26 10:24] VITALS: BP 137/79
== END 2022-12-26 17:00 | disposition home or self-care (01) ==
LOC: ED 16:50 → EDHOLD 16:50 → SUATTDRO 21:34 → MEDTELE 12-26 00:37
PROVIDERS: ADMIT Internal Medicine; ATTEND Internal Medicine